=== PATIENT | female | born 1965 | race Caucasian/White ===

== ENCOUNTER 2021-01-23 04:09 | Emergency (ER) | payer BC, SELFPAY ==
[2021-01-23 04:13] VITALS: BP 169/71; PULSE 72; RESP 18; TEMP 36.1; O2SAT 100; BMI 56.3
--- NOTE | 2021-01-23 04:53 | RAD_ITS ---
STUDY: X-RAY CHEST REASON FOR EXAM: Female, 55 years old. SOB TECHNIQUE: Single AP portable view of the chest. COMPARISON: None. FINDINGS: There is an infiltrate in the right lower lung field demarcated superiorly by the horizontal fissure consistent with a right middle lobe pneumonia. There also appears to be some infiltration and underlying the dome of the diaphragm, consistent with lower lobe pneumonia. There is no demonstrated pleural abnormality. The heart is enlarged. Normal mediastinum and jacki. Normal visualized aortic arch and descending thoracic aorta. There are no demonstrated acute fractures or destructive bone lesions. There is no demonstrated abnormality of the visualized soft tissue structures of the upper abdomen. RAD/Chest 1 View (Portable) IMPRESSION: Right middle lobe and right lower lobe infiltrates. Cardiomegaly. Electronically Signed: Joe Pena MD at 5:39 EDT , Service support ,
--- NOTE | 2021-01-23 04:53 | EKG12_ITS ---
Test Reason : DYSRHYTHMIA Blood Pressure : / mmHG Vent. Rate : 073 BPM Atrial Rate : 073 BPM P-R Int : 186 ms QRS Dur : 082 ms QT Int : 402 ms P-R-T Axes : 050 070 059 degrees QTc Int : 442 ms Normal sinus rhythm Low voltage QRS (Limb Leads) Poor R wave progression Confirmed by BERNARD LIAO, JOSH ([id number]), greeting card editor MAO CARRANZA ([id number]) on 01/26/2021 10:01:40 AM Referred By: BETO Confirmed By:JOSH WAGNER MD
[2021-01-23 05:16] LABS: Absolute Lymphocyte Count 1.12 X10^3/uL (0.83-4.51); Absolute Neutrophil Count 3.4 X10^3/uL (2.0-7.7); Basophil# 0.06 X10^3/uL; Basophil% 1.1 % (0-1); Eosinophil# 0.21 X10^3/uL; Eosinophils% 3.8 % (0-5); Hematocrit 36.8 % (37-47); Hemoglobin 10.5 g/dL (12.0-15.0); Lymphocyte # 1.12 X10^3/ul (0.83-4.51); Lymphocyte % 20.4 % (19-41); Mean Corp Hgb Conc 28.5 g/dL (32-36); Mean Corpuscular Hgb 29.7 pg (27.0-32.0); Mean Platelet Vol. 10.3 fl (6.2-12.0); Monocyte# 0.64 X10^3/uL; Monocyte% 11.7 % (0-10); Neutrophil # 3.44 X10^3/uL (2.7-7.7); Neutrophil % 62.8 % (47-70); POSITIVE MORPHOLOGY YES; Platelet Count 592 K/mm3 (150-450); RBC Distribution Width CV 19.2 % (11.6-14.6); Red Blood Count 3.54 M/mm3 (4.2-5.4); White Blood Count 5.5 K/mm3 (4.4-11.0)
[2021-01-23 05:40] LABS: Differential Indicated SCAN CRITERIA MET
[2021-01-23] MEDS: Furosemide 40 MG/4 ML Vial IV (06:01)
[2021-01-23 06:11] VITALS: BP 205/86; PULSE 75; RESP 18; O2SAT 100
[2021-01-23 06:45] LABS: Acanthocytes 1+; Anisocytosis 2+; Target Cells 1+; Tear Drop Cell RARE
[2021-01-23 06:47] LABS: Anion Gap 6 (5-15); BUN 17 mg/dL (7-18); BUN/Creat Ratio 21.2 RATIO (10-20); Calcium,Total 8.7 mg/dL (8.5-10.1); Chloride 104 mmol/L (98-107); EST Glomerular Filtration Rate 78 mL/min (>60); Est Glom Filt Rate - Afr Amer 95 mL/min (>60); Estimated Creatinine Clearance 61.36 ml/min; Glucose 137 mg/dL (74-106); Potassium 4.2 mmol/L (3.5-5.1); Sodium Level 137 mmol/L (136-145)
--- NOTE | 2021-01-23 06:57 | EX.ED.DYSGE1 ---
HPI History of Present Illness Chief Complaint: Complaint Informant: patient Narrative Narrative: Patient states that she feels she is starting to fill up with some fluids again. She was in the hospital the end of December at [facility]. She went home. She has been generally doing well. She is taking Lasix at 40 mg once a day. She states for the last day she started to get some swelling in her legs again. Her urine output also seems to be somewhat decreased. She is not having dysuria frequency or urgency. She is not actually having dyspnea. She did wake up slightly dyspneic but she stated that she was panting when she woke up and the symptoms rapidly resolved. She is not at all dyspneic now. She can lay down flat. She has not had a cough. She has had no fevers or chills. [facility] Medical History CHF (congestive heart failure) Diabetes HTN (hypertension) Home Medications atorvastatin 40 mg PO QHS 01/23/21 [History Last Taken Unknown] furosemide [Lasix] 40 mg PO DAILY 01/23/21 [History Last Taken Unknown] insulin glargine [Lantus Solostar U-100 Insulin] 30 unit SUBCUT QHS 01/23/21 [History Last Taken Unknown] insulin glargine [Lantus Solostar U-100 Insulin] 40 unit SUBCUT DAILY 01/23/21 [History Last Taken Unknown] insulin lispro [Humalog KwikPen Insulin] See Protocol SUBCUT TIDCM 01/23/21 [History Last Taken Unknown] losartan 50 mg PO DAILY 01/23/21 [History Last Taken Unknown] methotrexate sodium 20 mg PO QWEEK 01/23/21 [History Last Taken Unknown] metoprolol tartrate 37.5 mg PO BID 01/23/21 [History Last Taken Unknown] venlafaxine 25 mg PO DAILY 01/23/21 [History Last Taken Unknown] Allergy/AdvReac Type Severity Reaction Status Date / Time codeine Allergy Other Verified 01/23/21 04:12 Surgical History Stented coronary artery Social History Smoking Status: Never smoker ROS ROS ED Constitutional Constitutional ED: Denies chills, fever(s) or sweats Eyes Eyes: Denies blurry vision ENT ENT ED: Denies rhinorrhea or sore throat Cardiovascular Cardiovascular: Denies chest pain, palpitations or racing heartbeat Respiratory/Chest Respiratory/Chest: Denies cough or dyspnea Gastrointestinal Gastrointestinal: Denies abdominal pain, diarrhea, nausea or vomiting Genitourinary Genitourinary ED: Reports other Details: Patient feels she has had a slight decreased volume of urine over the last day. ; Denies dysuria, hematuria or urinary frequency Musculoskeletal Musculoskeletal: Reports other Details: Mild increase in swelling again bilaterally. Integumentary Denies rash Neurologic Neurologic: Denies headache(s) Endocrine Endocrinology: Denies polydipsia or polyuria Allergic/Immunologic Allergic/Immunologic ED: Denies urticaria EXAM Physical Exam Const Vital Signs: 01/23/21 06:11 01/23/21 08:01 Pulse Rate 75 71 Respiratory Rate 18 16 Blood Pressure 205/86 H 129/77 H Blood Pressure Mean 125 Pulse Ox 100 98 Positive well nourished, well developed and obese Constitutional Narrative: Patient sitting quietly in bed. She sitting up. She carries on a very normal conversation. No sign of dyspnea. She looks very nontoxic. General Appearance ED: well developed and NAD Nutritional Appearance: obese HEENT Reports moist mucous membranes Eyes General Eye ED: Negative for pale conjunctiva or scleral icterus Neck no JVD Chest Wall inspection of chest normal Resp normal respiratory effort and clear to auscultation bilaterally Auscultation: Negative for rales, rhonchi or wheezes Cardio regular rate, regular rhythm and no murmurs GI normal to inspection, nondistended, normoactive bowel sounds and non-tender Palpation: soft Back/Spine no CVA tenderness Extremity Extremity Narrative: Legs do have some very slight +1 edema bilaterally. No distended veins. No tenderness along the deep venous system. No cord. No asymmetry. Neuro Sensorium / Orientation: alert Psych mental status grossly normal Skin no rashes or lesions noted MDM MDM MDM Narrative Medical decision making narrative: Patient CBC shows mild anemia. Edgardo White. Electrolytes showed minimal elevation of her glucose. BNP was slightly elevated. X-ray did show some fluid in the major fissure on the right. However, patient has no symptoms of pneumonia. She has no cough and no dyspnea. She does feel as though she is getting more swelling returning. She was given Lasix here. She is urinated well. Plan will be to increase her Lasix to 40 twice daily for about 3 days. She will follow up with her private physician. They will have to watch her creatinine as she has had rising creatinines in the past. If she develops dyspnea, fever or other symptoms she may need to return. At this point since she is not at all hypoxic I do not think she needs to come in the hospital. Patient also requested something for itch. She has had a rash off and on for months. She also has anxiety. She states she was given a single medicine that helped for both. My suspicion is this is likely Vistaril. She states she does have it at home but she last took it about 10 hours ago and she is supposed to take it every 8 hours. Lab Data Attestation: I reviewed the patient's lab results. Labs: Laboratory Results - last 24 hr 01/23/21 01/23/21 01/23/21 05:08 05:08 05:37 WBC 5.5 RBC 3.54 L Hgb 10.5 L Hct 36.8 L MCV 104.0 H MCH 29.7 MCHC 28.5 L RDW Std Deviation 73.0 H RDW Coeff of Sherine 19.2 H Plt Count 592 H MPV 10.3 Immature Gran % (Auto) 0.200 Neut % (Auto) 62.8 Lymph % (Auto) 20.4 [place] % (Auto) 11.7 H Eos % (Auto) 3.8 Baso % (Auto) 1.1 H Absolute Neuts (auto) 3.4 Absolute Lymphs (auto) 1.12 Nucleated RBC % 2.0 Anisocytosis 2+ Target Cells 1+ Tear Drop Cells RARE Acanthocytes (Spur) 1+ Sodium Cancelled Cancelled Potassium Cancelled Cancelled Chloride Cancelled Cancelled Carbon Dioxide Cancelled Cancelled Anion Gap Cancelled Cancelled BUN Cancelled Cancelled Creatinine Cancelled Cancelled Estim Creat Clear Calc Cancelled Cancelled Est GFR (MDRD) Af Amer Cancelled Cancelled Est GFR (MDRD) Non-Af Cancelled Cancelled BUN/Creatinine Ratio Cancelled Cancelled Glucose Cancelled Cancelled Calcium Cancelled Cancelled B-Natriuretic Peptide 01/23/21 01/23/21 06:25 06:25 WBC RBC Hgb Hct MCV MCH MCHC RDW Std Deviation RDW Coeff of Sherine Plt Count MPV Immature Gran % (Auto) Neut % (Auto) Lymph % (Auto) [place] % (Auto) Eos % (Auto) Baso % (Auto) Absolute Neuts (auto) Absolute Lymphs (auto) Nucleated RBC % Anisocytosis Target Cells Tear Drop Cells Acanthocytes (Spur) Sodium 137 Potassium 4.2 Chloride 104 Carbon Dioxide 27.0 Anion Gap 6 BUN 17 Creatinine 0.80 Estim Creat Clear Calc 61.36 Est GFR (MDRD) Af Amer 95 Est GFR (MDRD) Non-Af 78 BUN/Creatinine Ratio 21.2 H Glucose 137 H Calcium 8.7 B-Natriuretic Peptide 598.5 H Radiography Diagnostic Testing: Radiology Impression Chest X-Ray 01/23/21 04:53 IMPRESSION: Right middle lobe and right lower lobe infiltrates. Cardiomegaly. Electronically Signed: Joe Pena MD at 5:39 EDT , Service support , EKG Initial EKG: Comments: EKG done as part of medical work-up with history of CHF. EKG shows a normal sinus rhythm with overall rate of 73. No ectopy. Nonspecific ST and T wave changes but no sign of infarct or ischemia. NE interval, QRS duration and QTc normal. Discharge Plan Triage Chief Complaint: Complaint Other Complaint: Nausea/Vomiting ED Provider: Chidi Geronimo Dx/Rx/DC Orders Clinical Impression: Edema, peripheral Instructions: Taking a Diuretic Prescriptions: No Action losartan 50 mg Tablet 50 mg PO DAILY RF: 0 atorvastatin 40 mg Tablet 40 mg PO QHS RF: 0 venlafaxine 25 mg Tablet 25 mg PO DAILY RF: 0 methotrexate sodium 2.5 mg Tablet 20 mg PO QWEEK RF: 0 furosemide [Lasix] 20 mg Tablet 40 mg PO DAILY RF: 0 insulin lispro [Humalog KwikPen Insulin] 100 unit/mL insulin pen See Protocol sliding scale dose SUBCUT TIDCM RF: 0 Lantus Solostar U-100 Insulin 100 unit/mL (3 mL) Insulin Pen 40 unit SUBCUT DAILY RF: 0 Lantus Solostar U-100 Insulin 100 unit/mL (3 mL) Insulin Pen 30 unit SUBCUT QHS RF: 0 metoprolol tartrate 37.5 mg Tablet 37.5 mg PO BID RF: 0 Primary Care Provider: Kevin Zarate Referrals: Kevin Zarate MD [Primary Care Provider] - 3-5 Days if not improving Activity Restrictions/Additional Instructions: Double your Lasix dose for the next 3 days. Follow-up with your physician for recheck clinically and recheck of your kidney function. Disposition Disposition: Home, Self Care Discharge Date/Time: 01/23/21 09:35
[2021-01-23 07:08] LABS: BNP,B-Type NATRIURETIC PEPTIDE 598.5 pg/mL (0-100)
[2021-01-23] MEDS: hydrOXYzine PAM 25 MG Capsule PO (08:00)
[2021-01-23 08:01] VITALS: BP 129/77; PULSE 71; RESP 16; O2SAT 98
== END 2021-01-23 09:35 | disposition home or self-care (01) ==
PROVIDERS: Emergency Provider Emergency Medicine; PCP Internal Medicine
DX: R11.2 Nausea with vomiting, unspecified (principal); M79.89 Other specified soft tissue disorders; I11.0 Hypertensive heart disease with heart failure; I50.9 Heart failure, unspecified; E11.9 Type 2 diabetes mellitus without complications; E66.9 Obesity, unspecified; Z79.4 Long term (current) use of insulin; Z79.899 Other long term (current) drug therapy; Z95.5 Presence of coronary angioplasty implant and graft
CPT/HCPCS: 36415; 71045; 80048; 83880; 85025; 93005; 96374; 99285; A4216; J1940

== ENCOUNTER → 2021-01-30 11:07 | Outpatient (CLI) | payer OTHER, SELFPAY ==
--- NOTE | 2021-01-30 12:07 | VDLE_ITS ---
Reason For Study: Pain RIGHT LEFT GSV is normal. GSV is normal. CFV is compressible, spontaneous, competent CFV is compressible, spontaneous, competent, and demonstrates pulsatile venous flow. and demonstrates pulsatile venous flow. FV is compressible, spontaneous, competent FV is compressible, spontaneous, competent and demonstrates pulsatile venous flow. and demonstrates pulsatile venous flow. FV distal not visualized due to patient body FV distal not visualized due to patient body habitus and edema. habitus and edema. POP V is compressible, spontaneous, competent POP V is compressible, spontaneous, competent and demonstrates pulsatile venous flow. and demonstrates pulsatile venous flow. T/P Trunk is compressible. T/P Trunk is compressible. PTV is compressible. PTV is compressible. RT PerV is compressible. LT PerV is compressible. Procedure This is a venous duplex using B-mode, color flow and spectral Doppler. Exam performed in department. The study was technically difficult. A preliminary report was called and/or faxed to [place] @ [facility]. VL/Venous Duplex US - Kyler Extrem Interpretation Summary No evidence for acute deep venous thrombosis bilateral lower extremities with p atent and compressible bilateral great saphenous veins. Pulsatile venous flow noted bilat erally consistent with proximal venous hypertension or obstruction. Clinical correlation would be indicated. This examination was noted to be technically difficult. Patient body habitus an d swelling noted. Ordering Physician: Aidan Roth Referring Physician: Kevin Zarate M.D. Performed By: Carolina Florence RVT
== END ==
PROVIDERS: PCP Internal Medicine; Referring Provider Family Medicine; Visit Provider Family Medicine
DX: M79.661 Pain in right lower leg (principal); M79.662 Pain in left lower leg
CPT/HCPCS: 93970

== ENCOUNTER 2021-02-04 18:41 | Emergency (ER) | payer OTHER, SELFPAY ==
[2021-02-04 18:46] VITALS: BP 153/68; PULSE 87; RESP 14; TEMP 36.5; O2SAT 97; BMI 60.0
--- NOTE | 2021-02-04 19:09 | EX.ED.UPPERE ---
HPI History of Present Illness Chief Complaint: Upper Extremity Injury Detail of Chief Complaint: Right shoulder pain since yesterday Informant: patient Narrative Narrative: Patient presents to the emergency department with complaint of right shoulder pain since yesterday. Patient states that they will only give her Tylenol and she is having severe pain. Patient also has history of chronic pain related to rheumatoid arthritis and her whole body hurts. Patient states that since yesterday she is also had a rash involving her face and palms and feet. Patient states she had a similar rash weeks ago and was treated with antibiotics and it resolved. Patient denies history of gonorrhea or syphilis. She has had no fevers. Patient states she had an admission at [facility] 3 weeks ago for pneumonia and acute kidney failure and dehydration. [facility] Medical History CHF (congestive heart failure) Diabetes HTN (hypertension) Home Medications atorvastatin 40 mg PO QHS 01/23/21 [History Last Taken Unknown] furosemide [Lasix] 40 mg PO DAILY 01/23/21 [History Last Taken Unknown] insulin glargine [Lantus Solostar U-100 Insulin] 30 unit SUBCUT QHS 01/23/21 [History Last Taken Unknown] insulin glargine [Lantus Solostar U-100 Insulin] 40 unit SUBCUT DAILY 01/23/21 [History Last Taken Unknown] insulin lispro [Humalog KwikPen Insulin] See Protocol SUBCUT TIDCM 01/23/21 [History Last Taken Unknown] losartan 50 mg PO DAILY 01/23/21 [History Last Taken Unknown] methotrexate sodium 20 mg PO QWEEK 01/23/21 [History Last Taken Unknown] metoprolol tartrate 37.5 mg PO BID 01/23/21 [History Last Taken Unknown] venlafaxine 25 mg PO DAILY 01/23/21 [History Last Taken Unknown] hydrocodone-acetaminophen 1 tab PO Q4H PRN PRN 2 Days #15 tablet 02/05/21 [Rx Last Taken Unknown] Allergy/AdvReac Type Severity Reaction Status Date / Time codeine Allergy Other Verified 02/04/21 18:49 Family History (Updated 02/04/21 @ 23:[address] Yeison Rodgers MD) Other Cancer Heart disease Hypertension Surgical History Stented coronary artery Social History Smoking Status: Never smoker ROS ROS ED Constitutional Constitutional ED: Reports systems reviewed and no addt'l complaints, except as documented; Denies body ache(s), change in weight or chills Eyes Eyes: Denies acute decrease in peripheral vision, change in vision, double vision or loss of vision ENT ENT ED: Reports none; Denies ear pain, lip swelling, loss taste/smell, neck pain, otalgia or sore throat Cardiovascular Cardiovascular: Reports none; Denies abdominal pain, chest pain with activity, leg edema, lightheadedness, palpitations, rapid heart rate or syncope Respiratory/Chest Respiratory/Chest: Reports none; Denies change in mental status, dry cough, dyspnea, hemoptysis, shortness of breath at rest or shortness of breath with exertion Gastrointestinal Gastrointestinal: Reports none; Denies abdominal pain, change in stool character, diarrhea, hematemesis, hematochezia, melena, rectal bleeding or vomiting Genitourinary Genitourinary ED: Reports none; Denies abdominal discomfort, anuria, dysuria, genital pain or polyuria Musculoskeletal Musculoskeletal: Reports none and other Details: Right shoulder pain ; Denies arthralgias, back pain, difficulty walking, extremity pain, muscle weakness or myalgias Integumentary Reports none and rash; Denies abscess Neurologic Neurologic: Reports none; Denies abnormal gait, confusion, focal weakness, frequent falls, headache(s), loss of vision, numbness, paresthesias, radicular pain, vertigo or weakness Psychiatric Psychiatric: Reports systems reviewed and no addt'l complaints, except as documented and none; Denies behavioral changes, confusion, difficulty concentrating, hallucinations, suicidal ideation, tactile hallucinations or visual hallucinations Endocrine Endocrinology: Denies none, cold intolerance, excessive sweating, fatigue or heat intolerance Hematologic/Lymphatic Hematologic/Lymphatic: Reports none; Denies anemia, easy bleeding or easy bruising Allergic/Immunologic Allergic/Immunologic ED: Denies as per HPI, none, lip swelling, mouth swelling, throat swelling, tongue swelling or hives EXAM Physical Exam Const Vital Signs: 02/04/21 18:46 Temperature 97.7 F L Temperature Source Oral Pulse Rate 87 Respiratory Rate 14 Blood Pressure 153/68 H Blood Pressure Mean 96 Pulse Ox 97 Oxygen Delivery Method Room Air Positive well nourished and well developed General Appearance ED: well developed and NAD HEENT Reports TM's clear and moist mucous membranes normocephalic and atraumatic; Negative for trauma or tenderness Tympanic Membrane ED: Yes TM's clear Eyes PERRL and EOMs intact bilaterally General Eye ED: Negative for pale conjunctiva or scleral icterus Neck no lymphadenopathy, supple and no JVD General: Negative for tenderness Chest Wall inspection of chest normal and palpation of chest normal Chest: Negative for tenderness Resp normal respiratory effort and clear to auscultation bilaterally Effort and Inspection: Negative for respiratory distress or pain with movement Auscultation: Negative for rhonchi, wheezes or diminished lung sounds Cardio regular rate, regular rhythm, S1 normal heart sound, S2 normal heart sound and no murmurs Peripheral Pulses: pulses 2+ throughout GI normal to inspection, nondistended, normoactive bowel sounds, soft to palpation, non-tender, non-distended and no masses Back/Spine no CVA tenderness and no thoracic nor lumbar tenderness Extremity Extremity Narrative: Patient has tenderness palpation over the right glenohumeral joint. Patient has pain with range of motion at the shoulder. There is no obvious deformity. Neurovascularly intact distally. General Extremety ED: Negative for edema General Extremity: Negative for edema Neuro oriented x3, CN's II-XII intact bilaterally, no sensory deficits noted and gait normal Sensorium / Orientation: awake, alert, oriented to person, oriented to place and oriented to time Motor Exam: strength 5/5 throughout and strength abnormal Psych mental status grossly normal Skin no rashes or lesions noted and no wounds Skin Narrative: Patient has a excoriated rash involving the face as well as palms. I do not appreciate any rash on her feet. The lips are also involved. No oral lesions noted. MDM MDM MDM Narrative Medical decision making narrative: Etiology of patient's pain is unclear and etiology of her leukocytosis is unclear. We did order an RPR. Patient will be empirically started on antibiotics and blood cultures will be ordered. Patient initially medicated with morphine and Zofran which did not improve her pain and she was given Dilaudid 1 mg IV. Case will be discussed with hospitalist evaluate for admission. Patient was evaluated in the emergency department by hospitalist who did not feel patient warranted admission at this time and recommended outpatient follow-up with dermatology and follow-up lab work. I discussed case with patient's primary care physician at the residential or who is covering for the primary care physician at the residential Dr. Shaquille Torres. We will send patient back to residential with a prescription for [place] for her shoulder pain. They will follow up on her blood work as far as repeat CBC and will be advised to return if fever or condition should worsen anyway. At this point etiology of her leukocytosis is unclear and the etiology of her rash is unclear. I did send off an RPR. Her urine was normal and chest x-ray was unremarkable. No history of gonorrhea or chlamydia. Patient does not appear toxic or ill otherwise. Lab Data Attestation: I reviewed the patient's lab results. EKG Initial EKG: Attestation: I personally reviewed and interpreted this EKG as follows: Comments: Sinus rhythm with a ventricular rate of 87 bpm with no acute ST segment changes noted. Discharge Plan Triage Chief Complaint: Upper Extremity Injury ED Provider: Ilya Cruz Dx/Rx/DC Orders Clinical Impression: Leukocytosis, Dermatitis, Acute pain of right shoulder Instructions: ED Shoulder Pain, Uncertain Cause Prescriptions: New hydrocodone-acetaminophen [hydrocodone-acetaminophen] 1 TABLET tablet 1 tab PO Q4H PRN PRN (Reason: Pain) 2 Days Qty: 15 RF: 0 No Action losartan 50 mg Tablet 50 mg PO DAILY RF: 0 atorvastatin 40 mg Tablet 40 mg PO QHS RF: 0 venlafaxine 25 mg Tablet 25 mg PO DAILY RF: 0 methotrexate sodium 2.5 mg Tablet 20 mg PO QWEEK RF: 0 furosemide [Lasix] 20 mg Tablet 40 mg PO DAILY RF: 0 insulin lispro [Humalog KwikPen Insulin] 100 unit/mL insulin pen See Protocol sliding scale dose SUBCUT TIDCM RF: 0 Lantus Solostar U-100 Insulin 100 unit/mL (3 mL) Insulin Pen 40 unit SUBCUT DAILY RF: 0 Lantus Solostar U-100 Insulin 100 unit/mL (3 mL) Insulin Pen 30 unit SUBCUT QHS RF: 0 metoprolol tartrate 37.5 mg Tablet 37.5 mg PO BID RF: 0 Primary Care Provider: Kevin Zarate Referrals: Max Lackey MD [STAFF PHYSICIAN] - 3-5 Days Kevin Zarate MD [Primary Care Provider] - Activity Restrictions/Additional Instructions: The etiology of the rash is unclear. Please follow-up with dermatology. Disposition Disposition: Home, Self Care
--- NOTE | 2021-02-04 19:19 | EKG12_ITS ---
Test Reason : UPPER EXTREMETY Blood Pressure : / mmHG Vent. Rate : 087 BPM Atrial Rate : 087 BPM P-R Int : 186 ms QRS Dur : 088 ms QT Int : 372 ms P-R-T Axes : 053 076 045 degrees QTc Int : 447 ms Normal sinus rhythm Anterior infarct , age undetermined Abnormal ECG Confirmed by ROMÁN LIAO, CHEPE ([id number]), newspaper copy editor MAO CARRANZA ([id number]) on 02/06/2021 8:09:11 AM Referred By: RU Confirmed By:CHEPE FRANCE MD
[2021-02-04] MEDS: Morphine 4 MG/ML Syringe IV (19:39)
[2021-02-04] MEDS: Ondansetron 4 MG/2 ML Vial IV (19:39)
--- NOTE | 2021-02-04 19:57 | RAD_ITS ---
STUDY: X-RAY CHEST REASON FOR EXAM: Female, 55 years old. Dyspnea TECHNIQUE: Frontal view COMPARISON: 01/23/2021 FINDINGS: The lungs are clear and expanded. There is no demonstrated pleural abnormality. Cardiomegaly. Normal mediastinum and jacki. Normal visualized pulmonary arteries. Normal visualized aortic arch and descending thoracic aorta. Degenerative changes of the thoracic spine. Normal visualized ribs, clavicles, and shoulders. There is no demonstrated abnormality of the visualized soft tissue structures of the upper abdomen. RAD/Chest 1 View (Portable) IMPRESSION: Cardiomegaly. Electronically Signed: Alejandro Keyes DO at 20:51 EDT Tel [phone], Service support ,
--- NOTE | 2021-02-04 19:57 | RAD_ITS ---
STUDY: X-RAY - RIGHT SHOULDER REASON FOR EXAM: Female, 55 years old. Pain TECHNIQUE: 4 view(s) of the shoulder. COMPARISON: None. FINDINGS: Normal glenohumeral articulation. Normal acromioclavicular joint. Normal acromion. Normal humeral head and visualized proximal humerus. The soft tissue structures are unremarkable. Normal visualized pulmonary apex. RAD/Shoulder min 2 Views IMPRESSION: Normal x-ray examination of the shoulder. Electronically Signed: Alejandro Keyes DO at 20:55 EDT Tel [phone], Service support ,
[2021-02-04 20:10] LABS: Absolute Lymphocyte Count 0.57 X10^3/uL (0.83-4.51); Absolute Neutrophil Count 22.2 X10^3/uL (2.0-7.7); Basophil# 0.08 X10^3/uL; Basophil% 0.3 % (0-1); Eosinophil# 0.13 X10^3/uL; Eosinophils% 0.5 % (0-5); Hematocrit 28.5 % (37-47); Lymphocyte # 0.57 X10^3/ul (0.83-4.51); Lymphocyte % 2.3 % (19-41); Mean Corp Hgb Conc 31.6 g/dL (32-36); Mean Corpuscular Hgb 28.8 pg (27.0-32.0); Mean Corpuscular Volume 91.3 fL (81-99); Mean Platelet Vol. 10.2 fl (6.2-12.0); Monocyte# 1.47 X10^3/uL; Monocyte% 5.9 % (0-10); NRBC Flagged by Analyzer 2.2 % (0-5); Neutrophil # 22.23 X10^3/uL (2.7-7.7); Neutrophil % 89.7 % (47-70); POSITIVE DIFFERENTIAL YES; Platelet Count 589 K/mm3 (150-450); RBC Distribution Width CV 18.2 % (11.6-14.6); RBC Distribution Width SD 59.5 fl (35.1-43.9); Red Blood Count 3.12 M/mm3 (4.2-5.4); White Blood Count 24.8 K/mm3 (4.4-11.0)
[2021-02-04 20:14] LABS: Differential Indicated SCAN CRITERIA MET
[2021-02-04 20:35] VITALS: BP 158/71; PULSE 88; RESP 19; O2SAT 96
[2021-02-04 20:48] LABS: Differential Comment SEE COMMENTS; Platelet Estimate MOD INC (ADEQ)
[2021-02-04 20:49] LABS: Anisocytosis RARE; Macrocytosis RARE; Red Cell Morphology N CHROM NORMAL (NORM C&C)
[2021-02-04 21:30] LABS: BNP,B-Type NATRIURETIC PEPTIDE 489.8 pg/mL (0-100)
[2021-02-04 21:40] VITALS: BP 159/85; PULSE 78; RESP 17; O2SAT 94
[2021-02-04 21:42] LABS: Bacteria 0 SEEN /hpf (None Seen); Mucous, Urine 0 SEEN /hpf (<or=2+); Red Blood Cells-Urine 0 SEEN /hpf (0-5)
[2021-02-04 21:47] LABS: Color, Urine Yellow (Yellow); Glucose, Dipstick Normal (Normal); Ketone-Dipstick Negative (Negative); Leukocyte Esterase-Dipstick Negative /ul (Negative); Nitrite-Dipstick Negative (Negative); Occult Blood-Urine 25 /ul (Negative); Protein-Dipstick 500 mg/dl (Negative); Urine Bilirubin Dipstick Negative (Negative); Urine Clarity Clear (Clear); Urine Urobilinogen 1 mg/dl (Normal)
[2021-02-04 21:53] LABS: Anion Gap 8 (5-15); BUN 37 mg/dL (7-18); BUN/Creat Ratio 33.3 RATIO (10-20); Calcium,Total 8.6 mg/dL (8.5-10.1); Chloride 95 mmol/L (98-107); Creatinine, Serum 1.11 mg/dL (0.55-1.02); EST Glomerular Filtration Rate 54 mL/min (>60); Est Glom Filt Rate - Afr Amer 65 mL/min (>60); Estimated Creatinine Clearance 44.23 ml/min; Glucose 205 mg/dL (74-106); Potassium 3.9 mmol/L (3.5-5.1); Sodium Level 130 mmol/L (136-145); Troponin-I HS 11 pg/mL (3.0-54.0)
[2021-02-04 21:54] LABS: Squamous Epithelial Cells - UA 0-5 SEEN /hpf (5-10); White Blood Cells 0-5 SEEN /hpf (0-5)
[2021-02-04] MEDS: HYDROmorphone 1 MG/ML Syringe IV (22:12)
[2021-02-04 22:38] VITALS: TEMP 36.4
--- NOTE | 2021-02-04 23:47 | HP.PCM.HOS_ITS ---
[facility] - [facility] General Date of Service: 02/04/21 Chief Complaint: right shoulder pain [facility] Narrative IRWIN ORTEGA, is a 55 F with a significant history of congestive heart failure; diabetes mellitus; hypertension who presents with excruciating right shoulder pain. She described the pain as sharp. She denies any ameliorating or aggravating factors. However she reported that at the emergency department the blood pressure cuff increase her pain. The pain is nonradiating. Associated with her symptoms is generalized body pain. Also patient has scattered rash on face and on the extremities that started about 3 weeks ago. She was at [facility] and was discharged on 01/05/2021. She reported that previously she had these lesions but with antibiotics the lesions cleared. However she reports again that before she left the hospital this lesion restarted. She also has lesions on the right side of her tongue. At the emergent part the patient had leukocytosis which prompted emergency department doctor to seek internal medicine consultation. [facility] Medical History CHF (congestive heart failure) Diabetes HTN (hypertension) Home Medications atorvastatin 40 mg PO QHS 01/23/21 [History Last Taken Unknown] furosemide [Lasix] 40 mg PO DAILY 01/23/21 [History Last Taken Unknown] insulin glargine [Lantus Solostar U-100 Insulin] 30 unit SUBCUT QHS 01/23/21 [History Last Taken Unknown] insulin glargine [Lantus Solostar U-100 Insulin] 40 unit SUBCUT DAILY 01/23/21 [History Last Taken Unknown] insulin lispro [Humalog KwikPen Insulin] See Protocol SUBCUT TIDCM 01/23/21 [History Last Taken Unknown] losartan 50 mg PO DAILY 01/23/21 [History Last Taken Unknown] methotrexate sodium 20 mg PO QWEEK 01/23/21 [History Last Taken Unknown] metoprolol tartrate 37.5 mg PO BID 01/23/21 [History Last Taken Unknown] venlafaxine 25 mg PO DAILY 01/23/21 [History Last Taken Unknown] hydrocodone-acetaminophen 1 tab PO Q4H PRN PRN 2 Days #15 tablet 02/05/21 [Rx Last Taken Unknown] Allergy/AdvReac Type Severity Reaction Status Date / Time codeine Allergy Other Verified 02/04/21 18:49 Family History Other Cancer Heart disease Hypertension Surgical History Stented coronary artery Social History Smoking Status: Never smoker ROS ROS Narrative Constitutional: Denies fever, chills, fatigue, anorexia and change in weight Eyes: Denies blurry vision, change in eye color, change in vision, discharge from eye(s), double vision, erythema, eye pain, loss of vision or other HEENT: Denies abnormal hearing, dysphagia, ear pain, epistaxis, headache(s), hearing loss, nasal congestion, nasal discharge, post nasal drip, sinus pressure, sore throat or other Cardiovascular: Denies chest pain or palpitations. Denies dyspnea on exertion, orthopnea and paroxysmal nocturnal dyspnea Respiratory/Chest: Denies cough, excessive phlegm production, shortness of yeison th with exertion and wheezing Gastrointestinal: Denies abdominal pain, coffee ground emesis, constipation, diarrhea, dyspepsia, hematemesis, hematochezia, loose stools, melena, nausea, vomiting or other Genitourinary: Denies burning urination, difficulty urinating, dysuria, hematuria, nocturia, urinary frequency, urinary hesitancy, urinary incontinence, urinary urgency or other Musculoskeletal: Reports right shoulder pain and generalized body pain. Neurologic: Denies abnormal gait, abnormal speech, confusion, disequilibrium, dizziness, focal weakness, headache(s), numbness, paresthesias, seizure-like activity, seizures, syncope, tingling, tremor(s) or other Psychiatric: Denies anxiety, depression, homicidal ideation, suicidal ideation or other Endocrinology: Denies change in body appearance, cold intolerance, excessive sweating, heat intolerance, polydipsia, polyuria or other Hematologic/Lymphatic: Denies anemia, easy bleeding, easy bruising, lymphadenopathy or other Integumentary: Reports rashes Allergic/Immunologic: Denies rhinitis, hives, eczema, asthma or other Vital Signs Vital Signs Vital Signs: 02/04/21 18:46 02/04/21 20:35 02/04/21 21:40 Temperature 97.7 F L Temperature Source Oral Pulse Rate 87 88 78 Respiratory Rate 14 19 H 17 Blood Pressure 153/68 H 158/71 H 159/85 H Blood Pressure Mean 96 100 109 Pulse Ox 97 96 94 Oxygen Delivery Method Room Air Room Air 02/04/21 22:38 Temperature 97.5 F L Temperature Source Temporal Pulse Rate Respiratory Rate Blood Pressure Blood Pressure Mean Pulse Ox Oxygen Delivery Method Weight Weight: 148.8 kg Body Mass Index (BMI) 60.0 Physical Exam Narrative Physical exam: General: Well-nourished, well-developed. Head: Normocephalic, atraumatic, no tenderness Eyes: PERRLA, EOMI ENT: Herpetic lesions on right side of tongue; no trauma, moist mucous membranes, no rhinorrhea Neck: Nontender, full range of motion, no spinal tenderness, deformities, step- off CVS: Regular rate and rhythm. S1-S2 present. No murmur, gallop or rub. Respiratory : clear to auscultation bilaterally, chest wall nontender, no wheezing Abdomen: Soft, nontender, nondistended, normal bowel sounds, no masses : Deferred Back: Nontender, no CVA tenderness, no midline spinal tenderness, deformities, step-offs Extremities: Decreased strength and limited ROM in all 4 extremities. Nontender. Skin: Scattered rashes on face. Neuro: Alert, oriented, cranial nerves II through XII grossly intact. Psychiatry: Normal mood. Normal affect. Not depressed. Not anxious. Results Lab / Micro Data Result Diagrams: 02/04/21 19:56 02/04/21 21:21 Labs: Laboratory Results - last 24 hr 02/04/21 19:44: Sodium Cancelled, Potassium Cancelled, Chloride Cancelled, Carbon Dioxide Cancelled, Anion Gap Cancelled, BUN Cancelled, Creatinine Cancelled, Estim Creat Clear Calc Cancelled, Est GFR (MDRD) Af Amer Cancelled, E st GFR (MDRD) Non-Af Cancelled, BUN/Creatinine Ratio Cancelled, Glucose Cancelled, Calcium Cancelled, Troponin I High Sens Cancelled 02/04/21 19:44: Syphilis Total Ab Cancelled 02/04/21 19:56: WBC 24.8 H, RBC 3.12 L, Hgb 9.0 L, Hct 28.5 L, MCV 91.3, MCH 28.8, MCHC 31.6 L, RDW Std Deviation 59.5 H, RDW Coeff of Sherine 18.2 H, Plt Count 589 H, MPV 10.2, Immature Gran % (Auto) 1.300 H, Neut % (Auto) 89.7 H, Lymph % (Auto) 2.3 L, [place] % (Auto) 5.9, Eos % (Auto) 0.5, Baso % (Auto) 0.3, Absolute Neuts (auto) 22.2 H, Absolute Lymphs (auto) 0.57 L, Nucleated RBC % 2.2, Differential Comment SEE COMMENTS, Platelet Estimate MOD INC, RBC Morphology N CHROM, Anisocytosis RARE, Macrocytosis RARE 02/04/21 19:56: B-Natriuretic Peptide Cancelled 02/04/21 20:34: B-Natriuretic Peptide 489.8 H 02/04/21 21:21: Sodium 130 L, Potassium 3.9, Chloride 95 L, Carbon Dioxide 27.0, Anion Gap 8, BUN 37 H, Creatinine 1.11 H, Estim Creat Clear Calc 44.23, Est GFR (MDRD) Af Amer 65, Est GFR (MDRD) Non-Af 54 L, BUN/Creatinine Ratio 33.3 H, Glucose 205 H, Calcium 8.6, Troponin I High Sens 11 02/04/21 21:31: Urine Color Yellow, Urine Clarity Clear, Urine pH 5.0, Ur Specific [place] 1.020, Urine Protein 500 H, Urine Glucose (UA) Normal, Urine Ketones Negative, Urine Occult Blood 25 H, Urine Nitrite Negative, Urine Bilirubin Negative, Urine Urobilinogen 1 H, Ur Leukocyte Esterase Negative, Urine RBC 0 SEEN, Urine WBC 0-5 SEEN, Ur Squamous Epith Cells 0-5 SEEN, Urine Bacteria 0 SEEN, Urine Mucus 0 SEEN Radiology Impression Chest X-Ray 02/04/21 19:57 IMPRESSION: Cardiomegaly. Electronically Signed: Alejandro Keyes DO at 20:51 EDT Tel [phone], Service support , Shoulder X-Ray 02/04/21 19:57 IMPRESSION: Normal x-ray examination of the shoulder. Electronically Signed: Alejandro Keyes DO at 20:55 EDT Tel [phone], Service support , Assessment & Plan Assessment/Plan (1) Dermatitis: (2) Leukocytosis: QUALIFIERS: Leukocytosis type: other Qualified Code(s): D72.828 - Other elevated white blood cell count (3) Shoulder pain: PLAN: Shoulder pain X-ray shoulder is normal Discussed emergent department doctor at the present time discharged home on pain medicine. Recommend that patient follow-up with pattern generator operator for rash. The skilled nursing did not see rashes as urgent, neither did patient. Patient's chief complain is shoulder pain. Initially recommended doxycycline. However upon seeing patients I do not think patient requires antibiotics. Patient lives in a skilled nursing. Recommend follow-up of a white count in 3 -7 days. Charges/Coding Multi Select Codes Visit Charges Office Visit/Consults: 91502 ED Visit; Low/Mod Severity
[2021-02-04 23:53] VITALS: PULSE 90; RESP 17; O2SAT 97
[2021-02-05 00:11] VITALS: BP 119/87
--- NOTE | 2021-02-05 00:21 | ED.RN ---
Brayan nurse called and aware we are sending her home and to expect her within the next 60-90 minutes [facility].
[2021-02-05 09:21] LABS: Syphilis Antibodies Non-reactive
== END 2021-02-05 00:59 | disposition home or self-care (01) ==
PROVIDERS: Emergency Provider Emergency Medicine; PCP Internal Medicine
DX: L30.9 Dermatitis, unspecified (principal); D72.829 Elevated white blood cell count, unspecified; M25.511 Pain in right shoulder; M06.9 Rheumatoid arthritis, unspecified; G89.29 Other chronic pain; I11.0 Hypertensive heart disease with heart failure; I50.9 Heart failure, unspecified; E11.9 Type 2 diabetes mellitus without complications; Z79.4 Long term (current) use of insulin; Z79.899 Other long term (current) drug therapy; Z95.5 Presence of coronary angioplasty implant and graft
CPT/HCPCS: 36415; 71045; 73030; 80048; 81001; 83880; 84484; 85025; 86780; 87040; 87077; 87186; 93005; 96365; 96375; 99285; J7030; J7050; A4216; J2405

== ENCOUNTER 2021-02-07 01:15 | Inpatient (IN) | payer OTHER, SELFPAY ==
[2021-02-07] VITALS (19 sets, daily range): BP systolic 111–175; BP diastolic 64–100; PULSE 74–88; RESP 17–22; TEMP 36–37.1; O2SAT 97–100; BMI 60.6; BMI 58.4
--- NOTE | 2021-02-07 01:37 | RAD_ITS ---
STUDY: X-RAY CHEST REASON FOR EXAM: Female, 55 years old patient with chest pain. TECHNIQUE: Single AP portable view of the chest. COMPARISON: Chest radiograph dated 02/04/2021. FINDINGS: Cardiac monitoring leads are present. The lungs are underexpanded. There is perihilar interstitial thickening and peribronchial cuffing. There is no demonstrated pleural abnormality. There is moderate cardiac enlargement. Normal mediastinum and jacki. There is prominence of the pulmonary hilar arteries with peripheral pulmonary vascular congestion. There is atherosclerotic calcification of the aortic arch with tortuosity. There are diffuse degenerative changes of the visualized thoracic spine. Normal visualized ribs, clavicles, and shoulders. There is no demonstrated abnormality of the visualized soft tissue structures of the upper abdomen. RAD/Chest 1 View (Portable) IMPRESSION: Cardiomegaly and mild pulmonary vascular congestion. Electronically Signed: Anca Torres MD at 2:52 EDT , Service support ,
--- NOTE | 2021-02-07 01:37 | EKG12_ITS ---
Test Reason : SOB Blood Pressure : / mmHG Vent. Rate : 083 BPM Atrial Rate : 083 BPM P-R Int : 184 ms QRS Dur : 084 ms QT Int : 392 ms P-R-T Axes : 052 064 052 degrees QTc Int : 460 ms Normal sinus rhythm Normal ECG Confirmed by KANID LIAO, ATUL ([id number]), script editor MAO CARRANZA ([id number]) on 02/12/2021 10:37:16 AM Referred By: JOSE F Confirmed By:VALENTE CHAU MD
--- NOTE | 2021-02-07 01:39 | EX.ED.DYSGE1 ---
HPI History of Present Illness Chief Complaint: Complaint Informant: patient, EMS and SNF Onset/Context/Timing Onset: Today Context: Gradual Onset Timing: Intermittent Current Severity: Mild Maximum Severity: Mild Narrative Narrative: 55-year-old female history of diabetes, MIs x2, 5 cardiac stents, CHF renal insufficiency. Patient is recently been hospitalized in acute in hospital. She was seen in the emergency department within the last 48 hours. Patient was sent in tonight due to decreased urination over the last 8 hours and nursing at the extended care facility felt she was short of breath. Patient states she is always short of breath. She denies any chest pain. She denies any hemoptysis. Prior similar symptoms: Yes Recent Illness/Hospitalization: Yes [facility] Medical History CHF (congestive heart failure) Diabetes HTN (hypertension) Home Medications atorvastatin 40 mg PO QHS 01/23/21 [History Last Taken Unknown] furosemide [Lasix] 40 mg PO DAILY 01/23/21 [History Last Taken Unknown] insulin glargine [Lantus Solostar U-100 Insulin] 30 unit SUBCUT QHS 01/23/21 [History Last Taken Unknown] insulin glargine [Lantus Solostar U-100 Insulin] 40 unit SUBCUT DAILY 01/23/21 [History Last Taken Unknown] insulin lispro [Humalog KwikPen Insulin] See Protocol SUBCUT TIDCM 01/23/21 [History Last Taken Unknown] losartan 50 mg PO DAILY 01/23/21 [History Last Taken Unknown] methotrexate sodium 20 mg PO QWEEK 01/23/21 [History Last Taken Unknown] metoprolol tartrate 37.5 mg PO BID 01/23/21 [History Last Taken Unknown] venlafaxine 25 mg PO DAILY 01/23/21 [History Last Taken Unknown] hydrocodone-acetaminophen 1 tab PO Q4H PRN PRN 2 Days #15 tablet 02/05/21 [Rx Last Taken Unknown] doxycycline hyclate [Doxy-Caps] 100 mg PO BID 02/07/21 [History Last Taken Unknown] Allergy/AdvReac Type Severity Reaction Status Date / Time codeine Allergy Other Verified 02/07/21 01:25 Family History Other Cancer Heart disease Hypertension Surgical History Stented coronary artery Social History Smoking Status: Never smoker ROS ROS ED ROS Narrative Decreased urination. Review of Systems ROS Unobtainable: Denies due to encephalopathy Constitutional Constitutional ED: Denies chills or fever(s) Eyes Eyes: Denies change in vision ENT ENT ED: Denies ear pain or sore throat Cardiovascular Cardiovascular: Denies chest pain Respiratory/Chest Respiratory/Chest: Reports dyspnea; Denies cough or sputum Gastrointestinal Gastrointestinal: Denies abdominal pain, nausea or vomiting Genitourinary Genitourinary ED: Denies dysuria Musculoskeletal Musculoskeletal: Denies myalgias Integumentary Denies rash Neurologic Neurologic: Denies headache(s) Psychiatric Psychiatric: Denies depression Endocrine Endocrinology: Denies polyuria Allergic/Immunologic Allergic/Immunologic ED: Denies urticaria EXAM Physical Exam Narrative Exam Narrative: 35-year-old female vital signs stable on oxygen she is 100% on 2 L. She does not look septic or toxic. Blood pressure 134/100. Afebrile. HEENT exam unremarkable. She has a rash and skin breakdown on her forehead and other areas. Neck nontender no JVD. No lymphadenopathy. Lungs clear to auscultation bilaterally. Heart regular rhythm rate about 80. No murmur. Abdomen morbidly obese with soft nontender. Nondistended. No peritoneal signs. Moving all 4 extremities. 1+ pitting edema both lower extremities. Calves are nontender. Neurologically she is awake and alert with no focal motor deficits. Const Vital Signs: 02/07/21 01:16 02/07/21 01:23 02/07/21 01:24 Temperature 98.4 F 98.5 F Temperature Source Temporal Temporal Pulse Rate 84 84 Respiratory Rate 17 22 H Blood Pressure 134/100 H 135/100 H Blood Pressure Mean 111 111 Pulse Ox 100 100 Oxygen Delivery Method Nasal Cannula Oxygen Flow Rate (L/min) 2 02/07/21 02:19 02/07/21 02:24 Temperature 98.6 F Temperature Source Temporal Pulse Rate 74 Respiratory Rate 17 Blood Pressure 130/64 H Blood Pressure Mean 86 Pulse Ox 99 98 Oxygen Delivery Method Nasal Cannula Oxygen Flow Rate (L/min) 2 2 Positive well nourished, well developed and obese; Negative for cachectic, contractures or unkempt General Appearance ED: well developed and NAD; Negative for unkempt, cachectic, contractures, cyanotic or diaphoretic Nutritional Appearance: obese; Negative for cachectic HEENT Reports moist mucous membranes Negative for trauma or tenderness Eyes PERRL and EOMs intact bilaterally Neck no lymphadenopathy, supple and no JVD General: Negative for tenderness Chest Wall inspection of chest normal and palpation of chest normal Resp normal respiratory effort and clear to auscultation bilaterally Auscultation: Negative for rales, rhonchi or wheezes Cardio regular rate, regular rhythm, S1 normal heart sound, S2 normal heart sound and no murmurs GI normal to inspection, nondistended, normoactive bowel sounds, non-tender, non-distended and no masses Inspection: Negative for abdominal distention Auscultation: normoactive bowel sounds Palpation: soft; Negative for tender, guarding or rebound tenderness present Back/Spine no CVA tenderness Extremity General Extremety ED: Yes edema; Negative for tenderness General Extremity: edema Neuro oriented x3 Sensorium / Orientation: alert; Negative for orientation impaired, lethargic or stuporous Motor Exam: strength 5/5 throughout Psych mental status grossly normal Appearance: Negative for unkempt Skin no wounds Rashes: rashes noted MDM MDM MDM Narrative Medical decision making narrative: 55-year-old female past medical history of diabetes NV, CHF and renal insufficiency. Recently hospitalized in [place]. Recently seen here. Has positive blood cultures for staph aureus x2. Will be further evaluated. Patient also tells me she recently had ultrasounds of her lower extremity showing no DVTs. Repeat exam no change at 3 AM. Due to the patient's bacteremia from recent blood cultures. Her acute CHF. And her overall medical condition she will be admitted. Of already spoken to the hospitalist. She will be started on IV antibiotics Zosyn and Vanco. She will be given IV Lasix. And she wanted her medications for anxiety and [place] for pain. Lab Data Attestation: I reviewed the patient's lab results. Lab results narrative: CBC shows an elevated white count 18,000. Previously was 24. Hemoglobin 8.7 which is her baseline anemia. Patient is on Coumadin her INR is 2.2. Electrolytes show an anion gap at 9 BUN and creatinine of 43 and 1.2 consistent with dehydration. Glucose 138. Troponin normal. Labs: Laboratory Results - last 24 hr 02/07/21 02/07/21 02/07/21 02:00 02:00 02:00 WBC 18.2 H RBC 2.96 L Hgb 8.7 L Hct 26.7 L MCV 90.2 MCH 29.4 MCHC 32.6 RDW Std Deviation 59.0 H RDW Coeff of Sherine 18.1 H Plt Count 765 H* MPV 10.6 Immature Gran % (Auto) 0.600 Neut % (Auto) 95.3 H Lymph % (Auto) 1.7 L [place] % (Auto) 0.3 Eos % (Auto) 1.9 Baso % (Auto) 0.2 Absolute Neuts (auto) 17.3 H Absolute Lymphs (auto) 0.31 L Nucleated RBC % 2.9 Diff Path Review May foll Target Cells 1+ PT 24.0 H INR 2.2 Sodium 134 L Potassium 4.5 Chloride 97 L Carbon Dioxide 28.0 Anion Gap 9 BUN 43 H Creatinine 1.29 H Estim Creat Clear Calc 38.06 Est GFR (MDRD) Af Amer 55 L Est GFR (MDRD) Non-Af 45 L BUN/Creatinine Ratio 33.3 H Glucose 138 H Calcium 8.6 Troponin I High Sens 13 Radiography Chest X-Ray - ED: 1 View and Read by ED Physician Diagnostic Testing: Radiology Impression Chest X-Ray 02/07/21 01:37 IMPRESSION: Cardiomegaly and mild pulmonary vascular congestion. Electronically Signed: Anca Torres MD at 2:52 EDT , Service support , Rhythm Strip Rhythm Strip: Sinus Rhythm Rate: 83 Ectopy: None EKG Initial EKG: Attestation: I personally reviewed and interpreted this EKG as follows: Interpretation: Sinus Rhythm and No Acute Injury Pattern Comments: Normal sinus rhythm rate of 83 no acute signs of NV or ischemia. Unchanged from prior EKG from January. Prior: Unchanged Discharge Plan Dx/Rx/DC Orders Clinical Impression: Leukocytosis, CHF (congestive heart failure), Bacteremia Disposition Disposition: [facility]
[2021-02-07 02:16] LABS: Absolute Lymphocyte Count 0.31 X10^3/uL (0.83-4.51); Absolute Neutrophil Count 17.3 X10^3/uL (2.0-7.7); Basophil# 0.04 X10^3/uL; Basophil% 0.2 % (0-1); Eosinophil# 0.34 X10^3/uL; Eosinophils% 1.9 % (0-5); Hematocrit 26.7 % (37-47); Hemoglobin 8.7 g/dL (12.0-15.0); Lymphocyte # 0.31 X10^3/ul (0.83-4.51); Lymphocyte % 1.7 % (19-41); Mean Corp Hgb Conc 32.6 g/dL (32-36); Mean Corpuscular Hgb 29.4 pg (27.0-32.0); Mean Corpuscular Volume 90.2 fL (81-99); Mean Platelet Vol. 10.6 fl (6.2-12.0); Monocyte# 0.05 X10^3/uL; Monocyte% 0.3 % (0-10); NRBC Flagged by Analyzer 2.9 % (0-5); Neutrophil # 17.32 X10^3/uL (2.7-7.7); Neutrophil % 95.3 % (47-70); POSITIVE COUNT YES; POSITIVE DIFFERENTIAL YES; POSITIVE MORPHOLOGY YES; Platelet Count 765 K/mm3 (150-450); RBC Distribution Width CV 18.1 % (11.6-14.6); Red Blood Count 2.96 M/mm3 (4.2-5.4); White Blood Count 18.2 K/mm3 (4.4-11.0)
--- NOTE | 2021-02-07 02:20 | HP.PCM.HOS_ITS ---
HPI - General General Date of Admission: 02/07/21 HPI Narrative IRWIN ORTEGA, is a 55 F with a complicated past medical history who presented to the emergency department [facility] early on the a.m. of 02/07/2021 with the complaint of decreased ability to urinate. She evidently is residing in a nursing facility and was unable to urinate over the last 8 hours and the nursing facility felt she was short of breath as well. The patient states that she is always short of breath and this is not a new symptom for her but the urination issues were. She was recently seen in the emergency department on 02/04/2021 for rash and right shoulder pain. At that time she was noted to have a significant leukocytosis that was greater than 20,000. An RPR was done given her rash and that was negative. She was started on empiric antibiotics and blood cultures were obtained. She was evaluated by the hospitalist at that time and discharged with recommendation for outpatient derm atology and follow-up in 1 week for lab work and was sent back to the long-term. She did have a recent extended hospitalization in [place] per her report and at that time was discharged to the long-term as she was unable to care for herself independently at home. The blood cultures that were obtained on 02/04/2021 have resulted positive for staph aureus in 2 of 2 blood cultures. Her CBC shows a leukocytosis of 18.2 chronic stable anemia and a markedly elevated platelet count at 765,000. She has a marked left shift. She is chronically on anticoagulation and her INR on admission was 2.2. Her be MP showed worsening renal function with a serum creatinine of 1.29 and a BUN of 43 up from 37 and 1.11 on 02/04/2021. A UA was performed and shows no signs of acute infection. A chest x-ray was performed and shows mild cardiomegaly with questionable mild pulmonary vascular congestion but overall penetration is poor with her markedly elevated BMI. In the emergency department she was given vancomycin and Zosyn and a dose of Lasix and admission was requested. [facility] Medical History (Updated 02/07/21 @ 04:[address] Suzy Valladares DO) Anemia CHF (congestive heart failure) Chronic pain Depression Diabetes HTN (hypertension) Hyperlipidemia Morbid obesity Rheumatoid arthritis Home Medications atorvastatin 40 mg PO QHS 01/23/21 [History Last Taken Unknown] furosemide [Lasix] 40 mg PO DAILY 01/23/21 [History Last Taken Unknown] insulin glargine [Lantus Solostar U-100 Insulin] 30 unit SUBCUT QHS 01/23/21 [History Last Taken Unknown] insulin glargine [Lantus Solostar U-100 Insulin] 40 unit SUBCUT DAILY 01/23/21 [History Last Taken Unknown] insulin lispro [Humalog KwikPen Insulin] See Protocol SUBCUT TIDCM 01/23/21 [History Last Taken Unknown] losartan 50 mg PO DAILY 01/23/21 [History Last Taken Unknown] methotrexate sodium 20 mg PO QWEEK 01/23/21 [History Last Taken Unknown] metoprolol tartrate 37.5 mg PO BID 01/23/21 [History Last Taken Unknown] venlafaxine 25 mg PO DAILY 01/23/21 [History Last Taken Unknown] hydrocodone-acetaminophen 1 tab PO Q4H PRN PRN 2 Days #15 tablet 02/05/21 [Rx Last Taken Unknown] albuterol sulfate [ProAir HFA] 2 puff INHALATION Q6H PRN 02/07/21 [History Last Taken Unknown] doxycycline hyclate [Doxy-Caps] 100 mg PO BID 02/07/21 [History Last Taken Unknown] folic acid 1 mg PO DAILY 02/07/21 [History Last Taken Unknown] hydroxyzine HCl 50 mg PO TID 02/07/21 [History Last Taken Unknown] ibuprofen 400 mg PO Q8H PRN 02/07/21 [History Last Taken Unknown] nystatin 1 unit TID 02/07/21 [History Last Taken Unknown] omeprazole 20 mg PO DAILY 02/07/21 [History Last Taken Unknown] [id number] 1 cap PO DAILY 02/07/21 [History Last Taken Unknown] venlafaxine [Effexor XR] 150 mg PO DAILY 02/07/21 [History Last Taken Unknown] Allergy/AdvReac Type Severity Reaction Status Date / Time codeine Allergy Other Verified 02/07/21 01:25 Family History Other Cancer Heart disease Hypertension Surgical History Stented coronary artery Social History Smoking Status: Never smoker ROS Constitutional Constitutional: Reports change in weight, chills, malaise and weakness; Denies anorexia, fatigue, fever(s), night sweats or other Eyes Eyes: Denies blurry vision, change in eye color, change in vision, discharge from eye(s), double vision, erythema, eye pain, loss of vision or other ENT HEENT: Denies abnormal hearing, dysphagia, ear pain, epistaxis, headache(s), hearing loss, nasal congestion, nasal discharge, post nasal drip, sinus pressure, sore throat or other Cardiovascular Cardiovascular: Reports dyspnea on exertion and orthopnea; Denies chest pain, claudication, edema, lightheadedness, palpitations, paroxysmal nocturnal dyspnea, rapid heart rate, syncope or other Respiratory/Chest Respiratory/Chest: Reports shortness of breath at rest and shortness of breath with exertion; Denies cough, dyspnea, excessive phlegm production, hemoptysis, productive cough, wheezing or other Gastrointestinal Gastrointestinal: Denies abdominal pain, coffee ground emesis, constipation, diarrhea, dyspepsia, hematemesis, hematochezia, loose stools, melena, nausea, vomiting or other Genitourinary Genitourinary: Reports difficulty urinating and urinary hesitancy; Denies burning urination, dysuria, hematuria, nocturia, urinary frequency, urinary incontinence, urinary urgency or other Musculoskeletal Musculoskeletal: Reports arthralgias, back pain, joint pain, joint stiffness and joint swelling; Denies myalgias, neck pain or other Neurologic Neurologic: Reports numbness and tingling; Denies abnormal gait, abnormal speech, confusion, disequilibrium, dizziness, focal weakness, headache(s), paresthesias, seizure-like activity, seizures, syncope, tremor(s) or other Psychiatric Psychiatric: Reports anxiety and depression; Denies homicidal ideation, suicidal ideation or other Endocrine Endocrinology: Denies change in body appearance, cold intolerance, excessive sweating, heat intolerance, polydipsia, polyuria or other Hematologic/Lymphatic Hematologic/Lymphatic: Reports anemia; Denies easy bleeding, easy bruising, lymphadenopathy or other Allergic/Immunologic Allergic/Immunologic: Reports other Details: Rash on hands and face Vital Signs Vital Signs Vital Signs: 02/07/21 01:16 02/07/21 01:23 02/07/21 01:24 Temperature 98.4 F 98.5 F Temperature Source Temporal Temporal Pulse Rate 84 84 Respiratory Rate 17 22 H Blood Pressure 134/100 H 135/100 H Blood Pressure Mean 111 111 Pulse Ox 100 100 Oxygen Delivery Method Nasal Cannula Oxygen Flow Rate (L/min) 2 Weight Weight: 150.4 kg Body Mass Index (BMI) 60.6 Physical Exam Const alert, oriented x3 and no apparent distress Constitutional Narrative: Super morbid obese middle-aged white female sitting up in bed, mildly dyspneic with conversation but patient comfortable on room air and states that this is chronic for her General Appearance: cooperative HEENT normocephalic and hearing grossly normal bilaterally HEENT Narrative: Mucous membranes are dry, dentition is poor, Mallampati is 4, short thick neck, multiple small wounds all over her face bilateral ears that appear to be picked at Eyes PERRL, EOMs intact bilaterally and conjunctivae normal Eyes Narrative: Mildly pale conjunctiva, no scleral icterus Neck no lymphadenopathy, supple and no JVD Neck Narrative: Short thick neck Resp no retractions, no use of accessory muscles and clear to auscultation bilaterally Resp Narrative: Mildly dyspneic with conversation but patient states that this is chronic for her, breath sounds are very distant secondary to body habitus but no adventitious sounds auscultated Auscultation: Negative for crackles, rales, rhonchi or wheezes Cardio regular rate, regular rhythm, S1 normal heart sound, S2 normal heart sound, no murmurs, no rub, no gallops, no clicks and no JVD Cardio Narrative: Very distant heart tones and auscultation was difficult secondary to body habitus GI normal to inspection, nondistended, normoactive bowel sounds, soft to palpation, non-tender and non-distended Extremity Extremity Narrative: No clubbing or cyanosis, 2-3+ pitting edema bilateral acute lower extremities, no signs of chronic venous stasis Peripheral Pulses: Yes pulses 2+ throughout Skin skin turgor normal, no jaundice, no petechiae and no mottling Skin Narrative: Rash on left hand that looks vesicular in nature and rash on face that it appears to be picked that but no vesicles noted Neuro oriented x3, CN's II-XII intact bilaterally and moves all extremities Neuro Narrative: Marked generalized weakness proximal greater than distal Sensorium / Orientation: awake and alert Speech: speech normal Psych affect normal Psych Narrative: Mood is slightly depressed Results Lab / Micro Data Attestation: I reviewed the patient's lab results. Result Diagrams: 02/07/21 02:00 02/07/21 02:00 Assessment & Plan Assessment/Plan (1) Dermatitis: (2) Leukocytosis: QUALIFIERS: Leukocytosis type: other Qualified Code(s): D72.828 - Other elevated white blood cell count (3) Staphylococcus aureus bacteremia: (4) RHODA (acute kidney injury): (5) Urinary retention: (6) Thrombocytosis: PLAN: Staph aureus bacteremia -No current signs of acute sepsis -We will dose with Vanco and Zosyn in clinic till cultures are finalized and then narrow as able -Check echocardiogram -Suspect skin may be source -Consult infectious disease -We will likely need PICC and long-term antibiotics Mild RHODA -Serum creatinine is unknown but is elevated compared when patient was here on 02/04/2021 -We will hydrate gently with 1 L at 75 cc/h and then reevaluate -Lasix was given in the emergency department for CHF but patient is satting well on room air -Suspect patient may have some RV dysfunction at baseline given her body habitus and likelihood of having sleep apnea -We will continue losartan at this time but hold ibuprofen -Hold home Lasix Leukocytosis -Secondary to bacteremia -Monitor with antibiotic treatment Thrombocytosis -Suspect reactive and may be slightly related to hemoconcentration -Repeat in a.m. -Monitor closely Therapeutic INR -It is documented that the patient has a history of clot and is on Coumadin -INR is therapeutic but there is no record that the patient is on Coumadin -We will need to have pharmacy call for doses and to clarify that the patient is actually taking Coumadin -She is not on Coumadin her INR is elevated and a coagulopathy should be worked up Urinary retention -Carlos placed -Urine output is good with Carlos placement but urine is quite dark -IV fluids -Continue to monitor and would perform voiding trial once clinically more stable -If continues to be an issue may need to consider urology involvement Intertrigo candidiasis -Nystatin powder Dermatitis -Etiology unclear -Syphilis titer was performed and was nonreactive -Patient does have blistering lesions on left hand -Facial lesions appear to be picked at and may be anxiety induced -Continue to monitor and work-up further if needed DM-2 -Continue Lantus 30 units at at bedtime and 40 units in the morning -3 times daily SSI -Diabetic diet Rheumatoid arthritis -Continue pain medicine for pain management -Hold methotrexate Hypertension -continue metoprolol GERD -Continue PPI Depression/anxiety -Continue hydroxyzine Continue Effexor DVT prophylaxis -INR is 2.2 -Coumadin is not listed as a medication on her med rec -We will need to have pharmacy assistance to ascertain whether or not she is actually on Coumadin or not CODE STATUS -Full code Charges/Coding Visit Charges Inpatient E&M: 65103 Init Hosp L3
[2021-02-07 02:35] LABS: Differential Indicated SCAN CRITERIA MET
[2021-02-07 02:36] LABS: International Normalized Ratio 2.2
[2021-02-07 02:46] LABS: Target Cells 1+
[2021-02-07 02:59] LABS: Anion Gap 9 (5-15); BUN 43 mg/dL (7-18); BUN/Creat Ratio 33.3 RATIO (10-20); Calcium,Total 8.6 mg/dL (8.5-10.1); Chloride 97 mmol/L (98-107); Creatinine, Serum 1.29 mg/dL (0.55-1.02); EST Glomerular Filtration Rate 45 mL/min (>60); Est Glom Filt Rate - Afr Amer 55 mL/min (>60); Estimated Creatinine Clearance 38.06 ml/min; Glucose 138 mg/dL (74-106); Potassium 4.5 mmol/L (3.5-5.1); Sodium Level 134 mmol/L (136-145); Troponin-I HS 13 pg/mL (3.0-54.0)
[2021-02-07 03:13] LABS: Mucous, Urine 0 SEEN /hpf (<or=2+)
[2021-02-07 03:18] LABS: Color, Urine Yellow (Yellow); Glucose, Dipstick Normal (Normal); Ketone-Dipstick Negative (Negative); Leukocyte Esterase-Dipstick 25 /ul (Negative); Nitrite-Dipstick Negative (Negative); Occult Blood-Urine 25 /ul (Negative); Protein-Dipstick 500 mg/dl (Negative); Urine Clarity Clear (Clear); Urine Urobilinogen 1 mg/dl (Normal)
[2021-02-07 03:20] LABS: Urine Bilirubin Dipstick 1 mg/dL (Negative)
[2021-02-07 03:24] LABS: Bacteria 2+ /hpf (None Seen); Red Blood Cells-Urine 0-5 SEEN /hpf (0-5); Squamous Epithelial Cells - UA 0-5 SEEN /hpf (5-10); White Blood Cells 0-5 SEEN /hpf (0-5)
[2021-02-07] MEDS: HYDROcodone Bitartrate/Apap 5/325 Tablet PO ×3 (03:31→15:59)
[2021-02-07] MEDS: Furosemide 40 MG/4 ML Vial IV (03:34)
[2021-02-07] MEDS: hydrOXYzine PAM 25 MG Capsule 50 MG PO (03:34)
--- NOTE | 2021-02-07 03:41 | ECHOCS_ITS ---
Reason For Study: Bactermia Procedure This was a 2D Doppler, Color Flow transthoracic echocardiogram. The study was technically difficult. Contrast injection was performed. Exam performed portable in patient room. Left Ventricle Normal LV size. Left ventricular systolic function is normal. The estimated ejection fraction is 55 %. No evidence for diastolic dysfunction. No regional wall motion abnormalities noted. Right Ventricle Normal RV size. Normal systolic function. Atria The left atrium is not well visualized. The right atrium is not well visualized. No doppler evidence for ASD. Mitral Valve There is no mitral annular calcification. Normal mitral valve. Trivial mitral valve insufficiency. Tricuspid Valve Normal tricuspid valve. Mild tricuspid valve insufficiency. Right ventricular systolic pressure estimated to be 37 mmHg. Aortic Valve Trisinus/trileaflet aortic valve. Normal aortic valve. Trivial aortic valve insufficiency. Pulmonic Valve The pulmonic valve is not well visualized. Trivial pulmonic valve insufficiency. Great Vessels Normal sized aortic root. Pericardium/Pleural No pericardial effusion. Medication Diluted definity 2ml given slow IV push to enhance endocardial definition. MMode/2D Measurements & Calculations LVIDd: 5.0 cm IVSd: 1.0 cm Ao root diam: 3.4 cm LVIDs: 3.5 cm LVPWd: 1.1 cm FS: 30.0 % LVAd ap4: 27.3 cm2 SV(MOD-sp4): 39.1 ml SV(sp4-el): 42.9 ml LVLd ap4: 7.4 cm EDV(MOD-sp4): 83.0 ml EDV(sp4-el): 85.9 ml LVAs ap4: 18.2 cm2 LVLs ap4: 6.5 cm ESV(MOD-sp4): 44.0 ml ESV(sp4-el): 43.1 ml EF(MOD-sp4): 47.0 % EF(sp4-el): 49.9 % LA dimension(2D): 3.2 cm Doppler Measurements & Calculations MV E max allan: 100.9 cm/sec Ao V2 max: 162.2 cm/sec LV V1 max: 96.1 cm/sec MV A max allan: 60.5 cm/sec Ao max P.5 mmHg LV V1 max P.7 mmHg MV E/A: 1.7 PA V2 max: 82.7 cm/sec TR max allan: 289.7 cm/sec TR max P.6 mmHg ECHO/Echo Complete W/ Contrast Interpretation Summary The study was technically difficult. Contrast injection was performed. Left ventricular systolic function is normal. The estimated ejection fraction is 55 %. Trivial mitral valve insufficiency. Mild tricuspid valve insufficiency. Trivial aortic valve insufficiency. Trivial pulmonic valve insufficiency. Right ventricular systolic pressure estimated to be 37 mmHg. No evidence for diastolic dysfunction. Ordering Physician: Suzy Valladares Referring Physician: Aidan Roth Performed By: Caitlyn Deutsch RDCS
--- NOTE | 2021-02-07 03:48 | ED.RN ---
Brayan nurse aware of admit to PCU
[2021-02-07 04:24] LABS: Lactic Acid 1.1 mmol/L (0.4-1.9)
--- NOTE | 2021-02-07 06:30 | PCS.PANDOC ---
PANDEMIC DOCUMENTATION INITIATED: Date: 12/18/2020 Time: 190
[2021-02-07] MEDS: Acetaminophen 325 MG Tablet 650 MG PO (06:52)
[2021-02-07] MEDS: 0.9% Normal Saline 1,000 ML 75 ML IV (06:52)
[2021-02-07 08:35] LABS: Bedside Glucose 128 mg/dL (70-110)
--- NOTE | 2021-02-07 09:17 | CASEMGMT ---
Addendum entered by Marlen Perez 02/07/21 09:49: FRANCESCA spoke with patient and she said she will go wherever. She just wants to go where someone will help her move forward. She feels like she just keeps going backwards. FRANCESCA told her [facility] can take her and they started the process with her insurance. She said that is fine she will go to [facility] at d/c. FRANCESCA also called Jael Mckeon at [facility] and left her a voice mail letting her know patient was admitted and also sent her clinicals. Plan: d/c to [facility] under skilled level of care. Marlen ANDRE Original Note: FRANCESCA noted patient is from [place]. FRANCESCA faxed clinicals to [facility] with [place]. She then called FRANCESCA and said on Friday patient asked to have a referral sent to [facility]. Referral was sent and [facility] started the pre-cert. FRANCESCA will check with patient and [facility]. Marlen ANDRE
[2021-02-07] MEDS: Nystatin Powder 15gm Bottle 1 APPLIC TOPICAL ×3 (09:32→21:45)
[2021-02-07] MEDS: Venlafaxine XR 75 MG Capsule 225 MG PO (09:32)
[2021-02-07] MEDS: Metoprolol Tartrate 25 MG Tablet 37.5 MG PO ×2 (09:32→21:44)
[2021-02-07] MEDS: Enoxaparin 40 MG/0.4 ML Syringe SC ×2 (09:33→21:45)
--- NOTE | 2021-02-07 10:38 | CASEMGMT ---
FRANCESCA received a call from Jael Mckeon at [facility]. She confirmed patient can come there at discharge. She will submit new clinicals to insurance. FRANCESCA will send her PT/OT once done and keep her updated. Marlen ANDRE
[2021-02-07] MEDS: NYSTATIN 500,000 UNIT/5 ML UDC 500000 UNIT PO ×4 (11:24→21:45)
[2021-02-07 11:35] LABS: Bedside Glucose 126 mg/dL (70-110)
[2021-02-07 12:41] LABS: Pathologist Review Reviewed
--- NOTE | 2021-02-07 15:49 | CT_ITS ---
INDICATION: hypoxia, endocarditis EXAMINATION: CTA Chest WO/W Contrast Injection TECHNIQUE: Helically acquired images were obtained of the chest following administration of IV contrast. A radiation dose optimization technique was used for this scan. 3D postprocessing images including MIPS were reviewed. IV Contrast dosage and agent: IV 100mL [id number] COMPARISON: None. FINDINGS: Lungs: There is interlobular septal thickening. There is diffuse groundglass opacities. Mediastinum: The heart is enlarged. No mediastinal, hilar or axillary adenopathy. The thoracic aorta is unremarkable. No obvious filling defect seen within the visualized pulmonary arteries. Pleura: Small bilateral pleural effusions. Bones/Soft tissues: No suspicious osseous or soft tissue lesions Upper abdomen: No visualized abnormalities in the upper abdomen. CT/CTA Chest W/WO Contrast IMPRESSION: No evidence of acute pulmonary emboli to segmental level. Cardiomegaly with interstitial edema and small bilateral pleural effusions. Electronically Signed: Parveen Rodriguez MD at 16:55 EDT Tel , Service support ,
--- NOTE | 2021-02-07 15:50 | PCM.CONS.GEN ---
Assessment & Plan Assessment/Plan (1) Staphylococcus aureus bacteremia: PLAN: MRSA bacteremia, high suspicion for endocarditis given osler's nodes and splinter hemorrhage on hands. Repeat bcx. Cont vanc, stop zosyn. Has had covid shot, 1 of 2. TTE neg for veg. Will check CTA given her dyspnea and accessory muscle use. Will follow, thank you (2) RHODA (acute kidney injury): HPI Consult Data Date of Consult: 02/07/21 HPI Narrative HPI Narrative: IRWIN ORTEGA, is a 55 F who presented with several days dyspnea, not feeling well, fever. Recent hospital stay in [place], now at [facility]. No new joint/back pain. Has skin lesions, particularly on face with some scabbing. Came to ED, bcx 02/04 (+) mrsa, admitted on vanc/zosyn. Full ROS performed and neg except as noted above. [facility] Medical History Anemia CHF (congestive heart failure) Chronic pain Depression Diabetes HTN (hypertension) Hyperlipidemia Morbid obesity Rheumatoid arthritis Home Medications atorvastatin 40 mg PO QHS 01/23/21 [History Last Taken Unknown] furosemide [Lasix] 40 mg PO DAILY 01/23/21 [History Last Taken Unknown] insulin glargine [Lantus Solostar U-100 Insulin] 30 unit SUBCUT QHS 01/23/21 [History Last Taken Unknown] insulin glargine [Lantus Solostar U-100 Insulin] 40 unit SUBCUT DAILY 01/23/21 [History Last Taken Unknown] insulin lispro [Humalog KwikPen Insulin] See Protocol SUBCUT TIDCM 01/23/21 [History Last Taken Unknown] losartan 50 mg PO DAILY 01/23/21 [History Last Taken Unknown] methotrexate sodium 20 mg PO QWEEK 01/23/21 [History Last Taken Unknown] metoprolol tartrate 37.5 mg PO BID 01/23/21 [History Last Taken Unknown] venlafaxine 75 mg PO DAILY 01/23/21 [History Last Taken Unknown] hydrocodone-acetaminophen 1 tab PO Q4H PRN PRN 2 Days #15 tablet 02/05/21 [Rx Last Taken Unknown] albuterol sulfate [ProAir HFA] 2 puff INHALATION Q6H PRN 02/07/21 [History Last Taken Unknown] doxycycline hyclate [Doxy-Caps] 100 mg PO BID 02/07/21 [History Last Taken Unknown] folic acid 1 mg PO DAILY 02/07/21 [History Last Taken Unknown] hydroxyzine HCl 50 mg PO TID 02/07/21 [History Last Taken Unknown] ibuprofen 400 mg PO Q8H PRN 02/07/21 [History Last Taken Unknown] nystatin 1 unit TID 02/07/21 [History Last Taken Unknown] omeprazole 20 mg PO DAILY 02/07/21 [History Last Taken Unknown] [id number] 1 cap PO DAILY 02/07/21 [History Last Taken Unknown] venlafaxine [Effexor XR] 150 mg PO DAILY 02/07/21 [History Last Taken Unknown] Allergy/AdvReac Type Severity Reaction Status Date / Time codeine Allergy Other Verified 02/07/21 01:25 Family History Other Cancer Heart disease Hypertension Surgical History Stented coronary artery Social History Smoking Status: Never smoker Physical Exam Const alert and oriented x3 Constitutional Narrative: ill appearing General Appearance: cooperative HEENT normocephalic and head/scalp atraumatic Eyes PERRL and EOMs intact bilaterally Neck supple and No nodes Resp clear to auscultation bilaterally Effort and Inspection: uses accessory muscles Cardio regular rate and regular rhythm GI normal to inspection, nondistended, normoactive bowel sounds Extremity Extremity Narrative: No spine tenderness. General Extremity: edema Skin Skin Narrative: osler's nodes on both hands. Splinter hemorrhage on L 4th finger. Neuro CN's II-XII intact bilaterally Lab / Micro Data Result Diagrams: 02/07/21 02:00 02/07/21 02:00 Labs: Laboratory Results - last 24 hr 02/07/21 02:00: WBC 18.2 H, RBC 2.96 L, Hgb 8.7 L, Hct 26.7 L, MCV 90.2, MCH 29.4, MCHC 32.6, RDW Std Deviation 59.0 H, RDW Coeff of Sherine 18.1 H, Plt Count 765 H*, MPV 10.6, Immature Gran % (Auto) 0.600, Neut % (Auto) 95.3 H, Lymph % (Auto) 1.7 L, Spink % (Auto) 0.3, Eos % (Auto) 1.9, Baso % (Auto) 0.2, Absolute Neuts (auto) 17.3 H, Absolute Lymphs (auto) 0.31 L, Nucleated RBC % 2.9, Diff Path Review Reviewed, Target Cells 1+ 02/07/21 02:00: Sodium 134 L, Potassium 4.5, Chloride 97 L, Carbon Dioxide 28.0, Anion Gap 9, BUN 43 H, Creatinine 1.29 H, Estim Creat Clear Calc 38.06, Est GFR (MDRD) Af Amer 55 L, Est GFR (MDRD) Non-Af 45 L, BUN/Creatinine Ratio 33.3 H, Glucose 138 H, Calcium 8.6, Troponin I High Sens 13 02/07/21 02:00: PT 24.0 H, INR 2.2 02/07/21 02:15: Urine Color Yellow, Urine Clarity Clear, Urine pH 6.0, Ur Specific [place] 1.020, Urine Protein 500 H, Urine Glucose (UA) Normal, Urine Ketones Negative, Urine Occult Blood 25 H, Urine Nitrite Negative, Urine Bilirubin 1 H, Urine Urobilinogen 1 H, Ur Leukocyte Esterase 25 H, Urine RBC 0-5 SEEN, Urine WBC 0-5 SEEN, Ur Squamous Epith Cells 0-5 SEEN, Urine Bacteria 2+, Urine Mucus 0 SEEN 02/07/21 03:28: Lactic Acid 1.1 02/07/21 06:49: POC Glucose 128 H 02/07/21 11:22: POC Glucose 126 H Micro: Microbiology 02/07/21 02:00 Interface Orders SARS-CoV-2 Antigen (Rapid) - Final Rhythm Strip Rhythm Strip: Sinus Rhythm Rate: 83 Ectopy: None Radiology Impression Chest X-Ray 02/07/21 01:37 IMPRESSION: Cardiomegaly and mild pulmonary vascular congestion. Electronically Signed: Anca Torres MD at 2:52 EDT , Service support , Echocardiogram 02/07/21 03:41 Interpretation Summary The study was technically difficult. Contrast injection was performed. Left ventricular systolic function is normal. The estimated ejection fraction is 55 %. Trivial mitral valve insufficiency. Mild tricuspid valve insufficiency. Trivial aortic valve insufficiency. Trivial pulmonic valve insufficiency. Right ventricular systolic pressure estimated to be 37 mmHg. No evidence for diastolic dysfunction. Ordering Physician: Suzy Valladares Referring Physician: Aidan Roth Performed By: Caitlyn Deutsch RDCS
--- NOTE | 2021-02-07 16:05 | PCM.RX.CS ---
Consult Pharmacy has been consulted to manage selected antiobiotic: Vancomycin Type of Consult: New start Suspected Infection: Bacteremia, Endocarditis Prior Doses of Antibiotics Received/Current Regimen: received vanc 2000mg IV x1 in E.R. this morning at 04:07 Labs: Sodium 134 mmol/L (136-145) L 02/07/21 02:00 Potassium 4.5 mmol/L (3.5-5.1) 02/07/21 02:00 Chloride 97 mmol/L (98-107) L 02/07/21 02:00 Carbon Dioxide 28.0 mmol/L (21.0-32.0) 02/07/21 02:00 Anion Gap 9 (5-15) 02/07/21 02:00 BUN 43 mg/dL (7-18) H 02/07/21 02:00 Creatinine 1.29 mg/dL (0.55-1.02) H 02/07/21 02:00 Est GFR (MDRD) Af Amer 55 mL/min (>60) L 02/07/21 02:00 Est GFR (MDRD) Non-Af 45 mL/min (>60) L 02/07/21 02:00 BUN/Creatinine Ratio 33.3 RATIO (10-20) H 02/07/21 02:00 Glucose 138 mg/dL (74-106) H 02/07/21 02:00 Microbiology: Microbiology 02/07/21 02:00 Interface Orders SARS-CoV-2 Antigen (Rapid) - Final Weight used for dosin.9 kg Estimated Creatinine Clearance: 66.8ml/min Goal Trough: 15-20 mcg/mL Pharmacy Plan for Drug Dosing: The patient received the initial dose of 2000mg in E.R. this morning so will continue with 1500mg IV q12h. Will check a vanc trough level before the 4th total dose tomorrow. The patient's CrCl of 66.8ml/min was calculated using an adjusted body weight of 88kg. Pharmacy Service will continue to monitor and adjust dosing as required. Follow-Up Labs: Trough Vancomycin Labs to be done on [date and time ordered]: 02/08/21 16:30
[2021-02-07 17:41] LABS: Bedside Glucose 129 mg/dL (70-110)
[2021-02-07] MEDS: Atorvastatin Calcium 40 MG Tablet PO (21:44)
[2021-02-07 23:26] LABS: Bedside Glucose 101 mg/dL (70-110)
[2021-02-08] VITALS (13 sets, daily range): BP systolic 94–139; BP diastolic 53–81; PULSE 68–90; RESP 18; TEMP 36.6–37.1; O2SAT 95–100
[2021-02-08] MEDS: Nystatin Powder 15gm Bottle 1 APPLIC TOPICAL ×3 (05:00→20:39)
[2021-02-08 05:56] LABS: Absolute Lymphocyte Count 0.31 X10^3/uL (0.83-4.51); Absolute Neutrophil Count 9.6 X10^3/uL (2.0-7.7); Basophil# 0.06 X10^3/uL; Basophil% 0.6 % (0-1); Eosinophil# 0.32 X10^3/uL; Hematocrit 22.8 % (37-47); Hemoglobin 7.5 g/dL (12.0-15.0); Lymphocyte # 0.31 X10^3/ul (0.83-4.51); Lymphocyte % 2.9 % (19-41); Mean Corp Hgb Conc 32.9 g/dL (32-36); Mean Corpuscular Hgb 28.7 pg (27.0-32.0); Mean Corpuscular Volume 87.4 fL (81-99); Mean Platelet Vol. 10.8 fl (6.2-12.0); Monocyte# 0.19 X10^3/uL; Monocyte% 1.8 % (0-10); NRBC Flagged by Analyzer 5.3 % (0-5); Neutrophil # 9.64 X10^3/uL (2.7-7.7); Neutrophil % 89.7 % (47-70); POSITIVE COUNT YES; POSITIVE DIFFERENTIAL YES; POSITIVE MORPHOLOGY YES; Platelet Count 635 K/mm3 (150-450); RBC Distribution Width CV 18.1 % (11.6-14.6); RBC Distribution Width SD 56.5 fl (35.1-43.9); Red Blood Count 2.61 M/mm3 (4.2-5.4); White Blood Count 10.7 K/mm3 (4.4-11.0)
[2021-02-08 06:14] LABS: International Normalized Ratio 1.9; Prothrombin Time (Protime)PT. 20.7 SECONDS (11.7-14.9)
[2021-02-08 06:33] LABS: Differential Indicated SCAN CRITERIA MET
[2021-02-08 06:46] LABS: Bedside Glucose 64 mg/dL (70-110)
[2021-02-08 06:46] LABS: Bedside Glucose 85 mg/dL (70-110)
[2021-02-08 07:01] LABS: ALB/GLOB Ratio 0.2 RATIO (0.9-2.4); AST(SGOT) 72 U/L (15-37); Alanine Aminotransfer ALT/SGPT 31 U/L (13-56); Albumin, Serum 0.9 g/dL (3.2-5.0); Alkaline Phosphatase 707 U/L (45-117); Anion Gap 9 (5-15); BUN 52 mg/dL (7-18); BUN/Creat Ratio 31.3 RATIO (10-20); Calcium,Total 8.2 mg/dL (8.5-10.1); Chloride 101 mmol/L (98-107); Creatinine, Serum 1.66 mg/dL (0.55-1.02); EST Glomerular Filtration Rate 34 mL/min (>60); Est Glom Filt Rate - Afr Amer 41 mL/min (>60); Estimated Creatinine Clearance 29.57 ml/min; Globulin 5.8 g/dL (2.2-4.2); Glucose 69 mg/dL (74-106); Magnesium 2.2 mg/dL (1.6-2.6); Phosphorus 4.6 mg/dL (2.5-4.9); Potassium 4.4 mmol/L (3.5-5.1); Protein, Total 6.7 g/dL (6.4-8.2); Sodium Level 135 mmol/L (136-145); Thyroid Stim Hormone (TSH) 4.98 uIU/mL (0.358-3.74)
[2021-02-08 07:18] LABS: Target Cells 1+
[2021-02-08] MEDS: Enoxaparin 40 MG/0.4 ML Syringe SC ×2 (09:17→20:24)
[2021-02-08] MEDS: Metoprolol Tartrate 25 MG Tablet 37.5 MG PO ×2 (09:17→20:23)
[2021-02-08] MEDS: NYSTATIN 500,000 UNIT/5 ML UDC 500000 UNIT PO ×4 (09:18→20:24)
--- NOTE | 2021-02-08 10:43 | PCM.PN.ID ---
Physical Exam Narrative Not feeling much better, no fever, legs very swollen. Const alert General Appearance: cooperative Resp normal air movement and clear to auscultation bilaterally Cardio regular rate and regular rhythm GI normal to inspection, nondistended, normoactive bowel sounds Extremity General Extremity: edema Skin Skin Narrative: scabs on face ID ID: Route of nutrition/ use of supplements: [] Nutritional Intake: [] IV Site: [] Carlos Catheter: [] Assessment & Plan Assessment/Plan (1) Staphylococcus aureus bacteremia: PLAN: MRSA bacteremia, high suspicion for endocarditis given osler's nodes and splinter hemorrhage on hands. Repeat bcx. Cont vanc. Has had covid shot, 1 of 2. TTE neg for veg. Pending CTA given her dyspnea and accessory muscle use. Will check TRESSA tomorrow. Will follow (2) RHODA (acute kidney injury):
[2021-02-08] MEDS: oxyCODONE 5 MG Tablet PO ×2 (11:32→16:34)
[2021-02-08 11:50] LABS: Bedside Glucose 93 mg/dL (70-110)
--- NOTE | 2021-02-08 12:54 | PCM.PN.HOSP ---
Documented by User: Olinda Kelley NP, DATA COLLECTION INTERVIEWER-C 02/08/21 13:09 Subjective Subjective 1. MRSA bacteremia-high suspicion for endocarditis-ID following. Continue IV vancomycin. Plan for TRESSA. Repeat blood cultures today. CTA ordered, report pending. 2. Acute kidney injury-IV fluids, trend BMP. Carlos placed due to retention. Hold nephrotoxic regimen. 3. Urinary retention-Carlos catheter in place. Will need voiding trial prior to discharge. If recurrent issue, will need urology consult. 4. History of DVT? Per documentation on Coumadin however not noted in external pharmacy or med list. Recent hospitalization at [facility] 2 weeks prior, will request records. 5. Normocytic anemia-unclear chronicity. Check iron studies. Trend CBC. Transfuse for hemoglobin less than 7. Check stool for occult blood. Initiate PPI empirically. 6. Type 2 diabetes [id number] with sliding scale insulin. Continue home insulin regimen. 7. Rheumatoid arthritis-hold methotrexate. 8. Dermatitis-picking behavior on face. Topical Bactroban. Discouraged picking scabbed areas. 9. Intertrigo candidiasis-nystatin powder. 10. Hypertension-continue metoprolol. 11. Hyperlipidemia-continue statin. 12. GERD-continue PPI. 13. Depression/anxiety-on hydroxyzine, Effexor. DVT prophylaxis-Lovenox subcu Discharge planning: Return to SNF for rehab when medically stable. Patient reports recent complicated admission at [place] 2 weeks prior, will request records. This patient was seen by Olinda Kelley, TAD-C under the supervision of Dr. Smith. Objective Data Objective Data Vital Signs: Vital Signs Temp Pulse Resp BP Pulse Ox 98.0 F 74 18 126/62 H 96 02/08/21 09:09 02/08/21 10:59 02/08/21 09:09 02/08/21 09:09 02/08/21 09:09 Oxygen Flow Rate (L/min) 0.5 Oxygen Delivery Method Nasal Cannula Weight: 319 lb 7.197 oz Body Mass Index (BMI) 58.4 Intake & Output: Intake and Output for Last 24 Hours 02/06/21 02/07/21 02/08/21 23:59 23:59 23:59 Intake Total 2700 / 2700 1430 / 1430 Output Total 1250 / 1250 200 / 200 Balance 1450 / 1450 1230 / 1230 Lab / Micro Data Result Diagrams: 02/08/21 05:30 02/08/21 05:30 Labs: Laboratory Results - last 24 hr 02/07/21 15:53: POC Glucose 129 H 02/07/21 21:42: POC Glucose 101 02/08/21 05:30: PT 20.7 H, INR 1.9 02/08/21 05:30: Sodium 135 L, Potassium 4.4, Chloride 101, Carbon Dioxide 25.0, Anion Gap 9, BUN 52 H, Creatinine 1.66 H, Estim Creat Clear Calc 29.57, Est GFR (MDRD) Af Amer 41 L, Est GFR (MDRD) Non-Af 34 L, BUN/Creatinine Ratio 31.3 H, Glucose 69 L, Calcium 8.2 L, Phosphorus 4.6, Magnesium 2.2, Total Bilirubin 2.20 H, AST 72 H, ALT 31, Alkaline Phosphatase 707 H, Total Protein 6.7, Albumin 0.9 L, Globulin 5.8 H, Albumin/Globulin Ratio 0.2 L, TSH 4.98 H 02/08/21 05:30: WBC 10.7, RBC 2.61 L, Hgb 7.5 L, Hct 22.8 L, MCV 87.4, MCH 28.7, MCHC 32.9, RDW Std Deviation 56.5 H, RDW Coeff of Sherine 18.1 H, Plt Count 635 H, MPV 10.8, Immature Gran % (Auto) 2.000 H, Neut % (Auto) 89.7 H, Lymph % (Auto) 2.9 L, [place] % (Auto) 1.8, Eos % (Auto) 3.0, Baso % (Auto) 0.6, Absolute Neuts (auto) 9.6 H, Absolute Lymphs (auto) 0.31 L, Nucleated RBC % 5.3 H, Target Cells 1+ 02/08/21 06:18: POC Glucose 64 L 02/08/21 06:36: POC Glucose 85 02/08/21 11:20: POC Glucose 93 Micro: Microbiology 02/07/21 02:00 Interface Orders SARS-CoV-2 Antigen (Rapid) - Final Rhythm Strip Rhythm Strip: Sinus Rhythm Rate: 83 Ectopy: None Documented by User: Dr. Dusty Smith MD 02/08/21 13:43 Objective Data Lab / Micro Data Result Diagrams: 02/08/21 05:30 02/08/21 05:30 Assessment & Plan Addt'l Comments This patient was seen in conjunction with MOISES Maher . I have independently interviewed and examined the patient and reviewed pertinent historical, laboratory, and other data. Please refer to MOISES Maher note for details of this patient's presentation, findings, and recommendations. I have reviewed MOISES Maher note and concur with documented findings. In brief, patient i 55-year-old lady called back to the ED after blood cultures came back positive. Admitted to a monitored bed with consultation placed to infectious disease Physical Examination: GENERAL: cooperative HEENT: Atraumatic; EYES; Anicteric, Normal Conjunctiva NECK; supple, normal thyroid, RESPIRATORY: Diminished to auscultation CARDIOVASCULAR: Regular S1 S2, GI: soft, normoactive bowel sounds, : No Renal angle tenderness; EXTREMITIES: edema, no clubbing, MUSCULOSKELETAL: no muscle waisting NEURO: Awake; no lateralizing signs. SKIN: Multiple areas of excoriation patient apparently picks PSYCH; Flat affect Assessment: 1. MRSA bacteremia with high suspicion for endocarditis 2. Acute kidney injury 3. Diabetes mellitus type 2 4. Anemia of chronic disorder 5. Essential hypertension 6. Dyslipidemia 7. Obesity with BMI of 58.4 7. GERD 8. Depression with anxiety 9. Rheumatoid arthritis 10. DVT prophylaxis Recommendations: 1. I have discussed the results of my overview and impressions with the patient 2. Options for management were reviewed Charges/Coding Visit Charges Inpatient E&M: 39059 Subs Hosp L3
[2021-02-08 13:59] LABS: Iron 31 ug/dL (50-170); Iron Binding Capacity,Total 205 ug/dL (250-450); PERCENT IRON SATURATION 15.1 % (15.0-55.0)
[2021-02-08 16:56] LABS: Vancomycin, Trough Level 34.1 ug/mL (5.0-15.0)
[2021-02-08 17:00] LABS: Bedside Glucose 90 mg/dL (70-110)
[2021-02-08 17:07] LABS: Vitamin B12 > 2000 pg/mL (211-911)
--- NOTE | 2021-02-08 18:16 | PCM.RX.CS ---
Consult Pharmacy has been consulted to manage selected antiobiotic: Vancomycin Type of Consult: Follow-up Suspected Infection: Bacteremia, Endocarditis Prior Doses of Antibiotics Received/Current Regimen: Currently on 1500mg iv q12h. Labs: Sodium 135 mmol/L (136-145) L 02/08/21 05:30 Potassium 4.4 mmol/L (3.5-5.1) 02/08/21 05:30 Chloride 101 mmol/L (98-107) 02/08/21 05:30 Carbon Dioxide 25.0 mmol/L (21.0-32.0) 02/08/21 05:30 Anion Gap 9 (5-15) 02/08/21 05:30 BUN 52 mg/dL (7-18) H 02/08/21 05:30 Creatinine 1.66 mg/dL (0.55-1.02) H 02/08/21 05:30 Est GFR (MDRD) Af Amer 41 mL/min (>60) L 02/08/21 05:30 Est GFR (MDRD) Non-Af 34 mL/min (>60) L 02/08/21 05:30 BUN/Creatinine Ratio 31.3 RATIO (10-20) H 02/08/21 05:30 Glucose 69 mg/dL (74-106) L 02/08/21 05:30 Vancomycin Trough 34.1 ug/mL (5.0-15.0) H 02/08/21 15:53 Microbiology: Microbiology 02/07/21 02:00 Interface Orders SARS-CoV-2 Antigen (Rapid) - Final Weight used for dosin.9 kg Estimated Creatinine Clearance: 52ml/min Goal Trough: 15-20 mcg/mL Pharmacy Plan for Drug Dosing: Trough level today was 34.1 ~11hrs post last dose. Renal function changed from Cr 1.29 to 1.66. Goal range is 15-20mcg/ml. Will hold further dosing. Random level ordered for 02.09.21 in AM. New dose and freq. will be calculated when level <20. Pharmacy Service will continue to monitor and adjust dosing as required. Follow-Up Labs: Trough Vancomycin - 02.09.21@0600 random level
[2021-02-08] MEDS: Pantoprazole Sodium 40 MG Tablet PO (20:24)
[2021-02-08] MEDS: Atorvastatin Calcium 40 MG Tablet PO (20:24)
[2021-02-08] MEDS: HYDROcodone Bitartrate/Apap 5/325 Tablet PO (20:29)
[2021-02-08] MEDS: Mupirocin Ointment 22gm Tube 1 APPLIC TOPICAL (20:32)
[2021-02-08 21:15] LABS: Bedside Glucose 84 mg/dL (70-110)
[2021-02-09] VITALS (12 sets, daily range): BP systolic 118–169; BP diastolic 59–119; PULSE 72–86; RESP 12–22; TEMP 36.4–36.7; O2SAT 94–100
[2021-02-09] MEDS: Nystatin Powder 15gm Bottle 1 APPLIC TOPICAL ×3 (06:34→20:47)
[2021-02-09 07:06] LABS: Bedside Glucose 72 mg/dL (70-110)
[2021-02-09 07:40] LABS: Absolute Lymphocyte Count 0.51 X10^3/uL (0.83-4.51); Absolute Neutrophil Count 9.5 X10^3/uL (2.0-7.7); Basophil# 0.04 X10^3/uL; Basophil% 0.4 % (0-1); Eosinophil# 0.56 X10^3/uL; Eosinophils% 5.1 % (0-5); Hematocrit 24.2 % (37-47); Lymphocyte # 0.51 X10^3/ul (0.83-4.51); Lymphocyte % 4.6 % (19-41); Mean Corp Hgb Conc 33.1 g/dL (32-36); Mean Corpuscular Hgb 28.9 pg (27.0-32.0); Mean Corpuscular Volume 87.4 fL (81-99); Mean Platelet Vol. 10.2 fl (6.2-12.0); Monocyte# 0.23 X10^3/uL; Monocyte% 2.1 % (0-10); NRBC Flagged by Analyzer 9.5 % (0-5); Neutrophil # 9.48 X10^3/uL (2.7-7.7); Neutrophil % 86.2 % (47-70); POSITIVE COUNT YES; POSITIVE DIFFERENTIAL YES; POSITIVE MORPHOLOGY YES; Platelet Count 584 K/mm3 (150-450); RBC Distribution Width CV 17.7 % (11.6-14.6); RBC Distribution Width SD 55.2 fl (35.1-43.9); Red Blood Count 2.77 M/mm3 (4.2-5.4)
[2021-02-09 07:42] LABS: Differential Indicated SCAN CRITERIA MET
[2021-02-09 07:48] LABS: International Normalized Ratio 1.7; Prothrombin Time (Protime)PT. 19.3 SECONDS (11.7-14.9)
[2021-02-09 08:11] LABS: ALB/GLOB Ratio 0.2 RATIO (0.9-2.4); AST(SGOT) 85 U/L (15-37); Alanine Aminotransfer ALT/SGPT 37 U/L (13-56); Alkaline Phosphatase 755 U/L (45-117); Anion Gap 9 (5-15); BUN 56 mg/dL (7-18); BUN/Creat Ratio 24.6 RATIO (10-20); Calcium,Total 8.5 mg/dL (8.5-10.1); Chloride 100 mmol/L (98-107); Creatinine, Serum 2.28 mg/dL (0.55-1.02); EST Glomerular Filtration Rate 23 mL/min (>60); Est Glom Filt Rate - Afr Amer 28 mL/min (>60); Estimated Creatinine Clearance 21.53 ml/min; Globulin 6.2 g/dL (2.2-4.2); Glucose 79 mg/dL (74-106); Potassium 4.5 mmol/L (3.5-5.1); Protein, Total 7.2 g/dL (6.4-8.2); Sodium Level 135 mmol/L (136-145)
[2021-02-09 08:12] LABS: Platelet Estimate MOD INC (ADEQ)
[2021-02-09 08:27] LABS: Vancomycin, Random Level 29.8 ug/mL (0.0-15.0)
--- NOTE | 2021-02-09 09:00 | ECHOTEE_ITS ---
Reason For Study: Emboli, MRSA Bacteremia Medication TRESSA probe 6VT-D (SN [id number]) passed with minimal difficulty. No complications were noted. Cetacaine Topical [place] given X3 orally. [id number] gargled and swallowed. Versed 1 mg given slow IVP. Fentanyl 50 mcg given slow IVP. Performed a rapid injection of agitated mix of 9 cc saline and 1cc air to assess for atrial septal defect. Left Ventricle The estimated ejection fraction is 55 %. No regional wall motion abnormalities noted. Right Ventricle Normal RV size. Normal systolic function. Atria No doppler evidence for ASD. Bubble contrast study negative for right to left interatrial shunt. Normal left atrium. The right atrium is mildly enlarged. Mitral Valve There is no mitral valve stenosis. Mild-Moderate (1-2+) mitral valve insufficiency. Tricuspid Valve There is no tricuspid stenosis. Trivial tricuspid valve insufficiency. Unable to estimate RV systolic pressure due to insufficient tricuspid regurgitant envelope. Aortic Valve Trisinus/trileaflet aortic valve. There is no aortic stenosis. Mild (1+) aortic valve insufficiency. Pulmonic Valve The pulmonic valve is not well visualized. Vessels Normal aortic root. Mild atherosclerosis of the descending aorta. ECHO/Echo Transesophageal (TRESSA) Interpretation Summary The estimated ejection fraction is 55 %. Mild-Moderate (1-2+) mitral valve insufficiency. No definite vegetations noted. Mild (1+) aortic valve insufficiency. Ordering Physician: Lan Boyce Referring Physician: Aidan Roth Performed By: Fabián Montes De Oca RCS
--- NOTE | 2021-02-09 09:21 | PCM.RX.CS ---
Consult Pharmacy has been consulted to manage selected antiobiotic: Vancomycin Type of Consult: Follow-up Prior Doses of Antibiotics Received/Current Regimen: vanc dosing is on hold currently Labs: Sodium 135 mmol/L (136-145) L 02/09/21 07:25 Potassium 4.5 mmol/L (3.5-5.1) 02/09/21 07:25 Chloride 100 mmol/L (98-107) 02/09/21 07:25 Carbon Dioxide 26.0 mmol/L (21.0-32.0) 02/09/21 07:25 Anion Gap 9 (5-15) 02/09/21 07:25 BUN 56 mg/dL (7-18) H 02/09/21 07:25 Creatinine 2.28 mg/dL (0.55-1.02) H 02/09/21 07:25 Est GFR (MDRD) Af Amer 28 mL/min (>60) L 02/09/21 07:25 Est GFR (MDRD) Non-Af 23 mL/min (>60) L 02/09/21 07:25 BUN/Creatinine Ratio 24.6 RATIO (10-20) H 02/09/21 07:25 Glucose 79 mg/dL (74-106) 02/09/21 07:25 Vancomycin Trough 34.1 ug/mL (5.0-15.0) H 02/08/21 15:53 Random Vancomycin 29.8 ug/mL (0.0-15.0) H 02/09/21 07:25 Microbiology: Microbiology 02/07/21 14:00 Blood Culture (Wb) - Right Hand Blood Culture - Preliminary 02/07/21 02:00 Interface Orders SARS-CoV-2 Antigen (Rapid) - Final Weight used for dosin.9 kg Estimated Creatinine Clearance: 37 ml/min Goal Trough: 15-20 mcg/mL Pharmacy Plan for Drug Dosing: The vanc random level drawn at 0725 today was 29.8. This is still above the goal of 15-20 so will continue to hold further dosing at this time. Repeat vanc random level tomorrow morning. Can resume dosing if that level is <20. The patient's CrCl of 37ml/min was calculated using an adjusted body weight of 88kg. Pharmacy Service will continue to monitor and adjust dosing as required. Follow-Up Labs: Trough Vancomycin - random level Labs to be done on [date and time ordered]: 02/10/21 0600
[2021-02-09 11:41] LABS: Bedside Glucose 64 mg/dL (70-110)
--- NOTE | 2021-02-09 11:53 | NURSING ---
bs lower from previous. pt alert and awake. moist rattle to upper ant lungsounds. pt sat up and encouraged and did some coughing and deep breathing exercises and pt cleared. o2 on at 2l d/t drowsiness. oj given and pt did fine with no choking. will recheck in 45min.
[2021-02-09 12:30] LABS: Bedside Glucose 71 mg/dL (70-110)
--- NOTE | 2021-02-09 13:55 | PN.HOSP_ITS ---
Documented by User: Olinda Kelley NP, DIALYSIS TECHNICIAN-C 02/09/21 14:08 Subjective Subjective Patient seen and examined. Reports intermittent shortness of breath. Underwent TRESSA which demonstrated no vegetations. She denies fever, chills. Denies other symptoms or complaints. Objective Data Objective Data Vital Signs: Vital Signs Temp Pulse Resp BP Pulse Ox 97.8 F 81 12 131/79 H 100 02/09/21 11:10 02/09/21 11:26 02/09/21 11:26 02/09/21 11:26 02/09/21 11:26 Oxygen Flow Rate (L/min) 2 Oxygen Delivery Method Nasal Cannula Weight: 319 lb 7.197 oz Body Mass Index (BMI) 58.4 Intake & Output: Intake and Output for Last 24 Hours 02/07/21 02/08/21 02/09/21 23:59 23:59 23:59 Intake Total 2700 / 2700 1790 / 1790 Output Total 1250 / 1250 350 / 550 200 / 200 Balance 1450 / 1450 1440 / 1240 -200 / -200 Lab / Micro Data Result Diagrams: 02/09/21 07:25 02/09/21 07:25 Labs: Laboratory Results - last 24 hr 02/08/21 05:30: Iron 31 L, TIBC 205 L, Iron Saturation 15.1, Folate 5.90 02/08/21 15:53: Vancomycin Trough 34.1 H 02/08/21 15:53: Vitamin B12 > 2000 H 02/08/21 16:34: POC Glucose 90 02/08/21 20:34: POC Glucose 84 02/09/21 06:33: POC Glucose 72 02/09/21 07:25: PT 19.3 H, INR 1.7 02/09/21 07:25: WBC 11.0, RBC 2.77 L, Hgb 8.0 L, Hct 24.2 L, MCV 87.4, MCH 28.9, MCHC 33.1, RDW Std Deviation 55.2 H, RDW Coeff of Sherine 17.7 H, Plt Count 584 H, MPV 10.2, Immature Gran % (Auto) 1.600 H, Neut % (Auto) 86.2 H, Lymph % (Auto) 4.6 L, [place] % (Auto) 2.1, Eos % (Auto) 5.1 H, Baso % (Auto) 0.4, Absolute Neuts (auto) 9.5 H, Absolute Lymphs (auto) 0.51 L, Nucleated RBC % 9.5 H, Diff Path Review May foll, Platelet Estimate MOD INC 02/09/21 07:25: Sodium 135 L, Potassium 4.5, Chloride 100, Carbon Dioxide 26.0, Anion Gap 9, BUN 56 H, Creatinine 2.28 H, Estim Creat Clear Calc 21.53, Est GFR (MDRD) Af Amer 28 L, Est GFR (MDRD) Non-Af 23 L, BUN/Creatinine Ratio 24.6 H, Glucose 79, Calcium 8.5, Total Bilirubin 2.00 H, AST 85 H, ALT 37, Alkaline Phosphatase 755 H, Total Protein 7.2, Albumin 1.0 L, Globulin 6.2 H, Albumin/Globulin Ratio 0.2 L 02/09/21 07:25: Random Vancomycin 29.8 H 02/09/21 11:37: POC Glucose 64 L 02/09/21 12:23: POC Glucose 71 Micro: Microbiology 02/07/21 14:00 Blood Culture (Wb) - Right Hand Blood Culture - Preliminary 02/07/21 02:00 Interface Orders SARS-CoV-2 Antigen (Rapid) - Final Radiography Diagnostic Testing: Radiology Impression Chest CTA 02/07/21 15:49 IMPRESSION: No evidence of acute pulmonary emboli to segmental level. Cardiomegaly with interstitial edema and small bilateral pleural effusions. Electronically Signed: Parveen Rodriguez MD at 16:55 EDT Tel , Service support , Transesophageal Echocardiogram 02/09/21 09:00 Interpretation Summary The estimated ejection fraction is 55 %. Mild-Moderate (1-2+) mitral valve insufficiency. No definite vegetations noted. Mild (1+) aortic valve insufficiency. Ordering Physician: Lan Boyce Referring Physician: Aidan Roth Performed By: Fabián Montes De Oca RCS Rhythm Strip Rhythm Strip: Sinus Rhythm Rate: 83 Ectopy: None Physical Exam Const alert, oriented x3 and no apparent distress Orientation / Consciousness: awake, oriented to person, oriented to place and oriented to time HEENT normocephalic and moist oral mucous membranes Eyes PERRL, EOMs intact bilaterally and conjunctivae normal Neck no lymphadenopathy Resp clear to auscultation bilaterally Auscultation: diminished lung sounds Cardio regular rate, regular rhythm and no murmurs Peripheral Pulses: pulses 2+ throughout GI normal to inspection, nondistended, normoactive bowel sounds, non-tender and non-distended Extremity normal to inspection Skin no rashes or lesions noted Skin Narrative: Scattered scabbed areas on face and arms, picking behavior. Lesions: no lesions Rashes: no rashes Trauma: no lacerations or abrasions Neuro CN's II-XII intact bilaterally, no focal motor deficits, no sensory deficits noted and deep tendon reflexes 2+ bilaterally Psych mental status grossly normal and affect normal Assessment & Plan Assessment/Plan (1) Staphylococcus aureus bacteremia: PLAN: 1. MRSA bacteremia-ID following. On IV daptomycin. TRESSA without vegetation. Repeat blood cultures preliminary positive. CTA with no evidence of PE, cardiomegaly with interstitial edema and small bilateral pleural effusions. 2. Acute kidney injury-Carlos placed due to retention. Patient clinically appears to be mildly volume overloaded, will attempt Lasix. If no improvement, will obtain nephrology consult. Patient was on temporary dialysis during recent admission at [facility]. 3. Urinary retention-Carlos catheter in place. Will need voiding trial prior to discharge. If recurrent issue, will need urology consult. 4. History of DVT? Per documentation on Coumadin however not noted in external pharmacy or med list. Recent hospitalization at [facility] 2 weeks prior, no note of Coumadin on [place] medication list. INR 2.2 on admission which has since trended down. Will obtain lower extremity Doppler. CTA without PE. 5. Normocytic anemia-unclear chronicity. Transfuse for hemoglobin less than 7. Check stool for occult blood. Initiate PPI empirically. Iron studies consistent with iron deficiency. IV iron x3 doses then initiate oral regimen. 6. Type 2 diabetes [id number] with sliding scale insulin. Continue home insulin regimen. Lantus reduced due to hypoglycemia. 7. Rheumatoid arthritis-hold methotrexate. 8. Dermatitis-picking behavior on face. Topical Bactroban. Discouraged picking scabbed areas. 9. Intertrigo candidiasis-nystatin powder. 10. Hypertension-continue metoprolol. 11. Hyperlipidemia-continue statin. 12. GERD-continue PPI. 13. Depression/anxiety-on hydroxyzine, Effexor. 14. Chronic heart failure with preserved ejection fraction-recently initiated on Lasix due to exacerbation at [facility]. Echocardiogram with EF 55%. DVT prophylaxis-Lovenox subcu Discharge planning: Return to SNF for rehab when medically stable. This patient was seen by MOISES Maher under the supervision of Dr. Smith. Documented by User: Dr. Dusty Smith MD 02/09/21 14:58 Objective Data Lab / Micro Data Result Diagrams: 02/09/21 07:25 02/09/21 07:25 Assessment & Plan Addt'l Comments This patient was seen in conjunction with MOISES Maher . I have independently interviewed and examined the patient and reviewed pertinent historical, laboratory, and other data. Please refer to MOISES Maher note for details of this patient's presentation, findings, and recommendations. I have reviewed MOISES Maher note and concur with documented findings. In brief, patient i 55-year-old lady called back to the ED after blood cultures came back positive. Admitted to a monitored bed with consultation placed to infectious disease 02/09/2021. Patient underwent TRESSA which did not show any definitive evidence of vegetations. Repeat blood culture sent today. Patient remains on broad- spectrum antibiotic therapy ID on case subsequent recommendations refer to ID Physical Examination: GENERAL: cooperative HEENT: Atraumatic; EYES; Anicteric, Normal Conjunctiva NECK; supple, normal thyroid, RESPIRATORY: Diminished to auscultation CARDIOVASCULAR: Regular S1 S2, GI: soft, normoactive bowel sounds, : No Renal angle tenderness; EXTREMITIES: edema, no clubbing, MUSCULOSKELETAL: no muscle waisting NEURO: Awake; no lateralizing signs. SKIN: Multiple areas of excoriation patient apparently picks PSYCH; Flat affect Assessment: 1. MRSA bacteremia with high suspicion for endocarditis 2. Acute kidney injury 3. Diabetes mellitus type 2 4. Anemia of chronic disorder 5. Essential hypertension 6. Dyslipidemia 7. Obesity with BMI of 58.4 7. GERD 8. Depression with anxiety 9. Rheumatoid arthritis 10. DVT prophylaxis Recommendations: 1. I have discussed the results of my overview and impressions with the patient 2. Options for management were reviewed Charges/Coding Visit Charges Inpatient E&M: 23241 Subs Hosp L3
[2021-02-09] MEDS: NYSTATIN 500,000 UNIT/5 ML UDC 500000 UNIT PO ×3 (14:05→20:49)
[2021-02-09] MEDS: Pantoprazole Sodium 40 MG Tablet PO ×2 (14:06→20:48)
[2021-02-09] MEDS: Metoprolol Tartrate 25 MG Tablet 37.5 MG PO ×2 (14:07→20:48)
[2021-02-09] MEDS: Mupirocin Ointment 22gm Tube 1 APPLIC TOPICAL ×2 (14:08→20:48)
[2021-02-09 14:46] LABS: BNP,B-Type NATRIURETIC PEPTIDE 434.9 pg/mL (0-100)
--- NOTE | 2021-02-09 16:19 | PCM.PN.ID ---
Physical Exam Narrative Not feeling well, no fever. Having fatigue. Const alert General Appearance: cooperative Resp clear to auscultation bilaterally Cardio regular rate and regular rhythm GI normal to inspection, nondistended, normoactive bowel sounds Skin no rashes or lesions noted ID ID: Route of nutrition/ use of supplements: [] Nutritional Intake: [] IV Site: [] Carlos Catheter: [] Assessment & Plan Assessment/Plan (1) Staphylococcus aureus bacteremia: PLAN: MRSA bacteremia, suspicion for endocarditis given osler's nodes and splinter hemorrhage on hands. Repeat bcx. Has had covid shot, 1 of 2. TTE neg for veg. CTA and TRESSA neg for veg or embolic disease. Change vanc to dapto. Worsening RHODA. Will follow (2) RHODA (acute kidney injury):
[2021-02-09] MEDS: Furosemide 40 MG/4 ML Vial IV (16:26)
[2021-02-09 16:30] LABS: Bedside Glucose 117 mg/dL (70-110)
[2021-02-09 17:01] LABS: Urine Sodium 7 mmol/L (Not Establ.)
[2021-02-09] MEDS: oxyCODONE 5 MG Tablet PO (18:40)
[2021-02-09] MEDS: Senna/Docusate Sodium 1 Tablet 2 TABLET PO (18:40)
[2021-02-09] MEDS: Atorvastatin Calcium 40 MG Tablet PO (20:48)
[2021-02-09] MEDS: Enoxaparin 30 MG/0.3 ML Syringe SC (20:49)
[2021-02-09 21:35] LABS: Bedside Glucose 110 mg/dL (70-110)
[2021-02-10] VITALS (12 sets, daily range): BP systolic 106–126; BP diastolic 62–72; PULSE 68–99; RESP 16–18; TEMP 36.4–36.6; O2SAT 95–99
[2021-02-10] MEDS: Nystatin Powder 15gm Bottle 1 APPLIC TOPICAL ×3 (05:42→22:34)
[2021-02-10 06:21] LABS: Bedside Glucose 84 mg/dL (70-110)
[2021-02-10 06:34] LABS: Absolute Lymphocyte Count 0.57 X10^3/uL (0.83-4.51); Absolute Neutrophil Count 14.9 X10^3/uL (2.0-7.7); Basophil# 0.05 X10^3/uL; Basophil% 0.3 % (0-1); Eosinophil# 0.65 X10^3/uL; Eosinophils% 3.8 % (0-5); Hematocrit 24.5 % (37-47); Lymphocyte # 0.57 X10^3/ul (0.83-4.51); Lymphocyte % 3.4 % (19-41); Mean Corp Hgb Conc 32.7 g/dL (32-36); Mean Corpuscular Hgb 28.6 pg (27.0-32.0); Mean Corpuscular Volume 87.5 fL (81-99); Mean Platelet Vol. 10.4 fl (6.2-12.0); Monocyte# 0.37 X10^3/uL; Monocyte% 2.2 % (0-10); NRBC Flagged by Analyzer 8.3 % (0-5); Neutrophil # 14.89 X10^3/uL (2.7-7.7); Neutrophil % 88.2 % (47-70); POSITIVE COUNT YES; POSITIVE DIFFERENTIAL YES; POSITIVE MORPHOLOGY YES; Platelet Count 531 K/mm3 (150-450); RBC Distribution Width CV 18.4 % (11.6-14.6); RBC Distribution Width SD 56.6 fl (35.1-43.9); White Blood Count 16.9 K/mm3 (4.4-11.0)
[2021-02-10 06:41] LABS: Differential Indicated SCAN CRITERIA MET
[2021-02-10 06:47] LABS: International Normalized Ratio 1.8
[2021-02-10] MEDS: oxyCODONE 5 MG Tablet PO ×3 (06:54→23:45)
[2021-02-10 06:58] LABS: Vancomycin, Random Level 26.2 ug/mL (0.0-15.0)
[2021-02-10 07:22] LABS: ALB/GLOB Ratio 0.1 RATIO (0.9-2.4); AST(SGOT) 114 U/L (15-37); Alanine Aminotransfer ALT/SGPT 48 U/L (13-56); Albumin, Serum 0.9 g/dL (3.2-5.0); Alkaline Phosphatase 757 U/L (45-117); Anion Gap 10 (5-15); BUN 62 mg/dL (7-18); BUN/Creat Ratio 24.3 RATIO (10-20); Calcium,Total 8.6 mg/dL (8.5-10.1); Chloride 100 mmol/L (98-107); Creatinine, Serum 2.55 mg/dL (0.55-1.02); EST Glomerular Filtration Rate 21 mL/min (>60); Est Glom Filt Rate - Afr Amer 25 mL/min (>60); Estimated Creatinine Clearance 19.25 ml/min; Globulin 6.1 g/dL (2.2-4.2); Glucose 88 mg/dL (74-106); Potassium 4.4 mmol/L (3.5-5.1); Sodium Level 134 mmol/L (136-145)
[2021-02-10] MEDS: Metoprolol Tartrate 25 MG Tablet 37.5 MG PO ×2 (10:09→23:36)
[2021-02-10] MEDS: Furosemide 40 MG/4 ML Vial IV ×2 (10:09→17:57)
[2021-02-10] MEDS: Mupirocin Ointment 22gm Tube 1 APPLIC TOPICAL ×2 (10:10→23:37)
[2021-02-10] MEDS: Enoxaparin 30 MG/0.3 ML Syringe SC ×2 (10:10→22:33)
[2021-02-10] MEDS: Pantoprazole Sodium 40 MG Tablet PO ×2 (10:10→22:35)
[2021-02-10] MEDS: NYSTATIN 500,000 UNIT/5 ML UDC 500000 UNIT PO ×4 (10:12→22:35)
--- NOTE | 2021-02-10 11:46 | PN.HOSP_ITS ---
Documented by User: Olinda Kelley NP, RIFFLER TENDER-C 02/10/21 12:04 Subjective Subjective Patient seen and examined. States she is tired and just wants to rest today. Denies fever, chills. Denies further shortness of breath. Objective Data Objective Data Vital Signs: Vital Signs Temp Pulse Resp BP Pulse Ox 97.5 F L 99 18 110/72 99 02/10/21 10:01 02/10/21 10:09 02/10/21 10:01 02/10/21 10:01 02/10/21 10:01 Oxygen Flow Rate (L/min) 2 Oxygen Delivery Method Nasal Cannula Weight: 319 lb 7.197 oz Body Mass Index (BMI) 58.4 Intake & Output: Intake and Output for Last 24 Hours 02/08/21 02/09/21 02/10/21 23:59 23:59 23:59 Intake Total 1790 / 1790 700 / 700 Output Total 350 / 550 520 / 720 200 / 200 Balance 1440 / 1240 180 / -20 -200 / -200 Lab / Micro Data Result Diagrams: 02/10/21 05:54 02/10/21 05:54 Labs: Laboratory Results - last 24 hr 02/09/21 07:25: B-Natriuretic Peptide 434.9 H 02/09/21 12:23: POC Glucose 71 02/09/21 15:10: Ur Random Sodium 7, Urine Creatinine 97.70 02/09/21 16:26: POC Glucose 117 H 02/09/21 20:44: POC Glucose 110 02/10/21 05:54: PT 20.0 H, INR 1.8 02/10/21 05:54: WBC 16.9 H, RBC 2.80 L, Hgb 8.0 L, Hct 24.5 L, MCV 87.5, MCH 28.6, MCHC 32.7, RDW Std Deviation 56.6 H, RDW Coeff of Sherine 18.4 H, Plt Count 5 31 H, MPV 10.4, Immature Gran % (Auto) 2.100 H, Neut % (Auto) 88.2 H, Lymph % (Auto) 3.4 L, [place] % (Auto) 2.2, Eos % (Auto) 3.8, Baso % (Auto) 0.3, Absolute Neuts (auto) 14.9 H, Absolute Lymphs (auto) 0.57 L, Nucleated RBC % 8.3 H 02/10/21 05:54: Sodium 134 L, Potassium 4.4, Chloride 100, Carbon Dioxide 24.0, Anion Gap 10, BUN 62 H, Creatinine 2.55 H, Estim Creat Clear Calc 19.25, Est GFR (MDRD) Af Amer 25 L, Est GFR (MDRD) Non-Af 21 L, BUN/Creatinine Ratio 24.3 H, Glucose 88, Calcium 8.6, Total Bilirubin 1.70 H, AST 114 H, ALT 48, Alkaline Phosphatase 757 H, Total Protein 7.0, Albumin 0.9 L, Globulin 6.1 H, Albumin/Globulin Ratio 0.1 L 02/10/21 05:54: Random Vancomycin 26.2 H 02/10/21 06:14: POC Glucose 84 Micro: Microbiology 02/07/21 14:00 Blood Culture (Wb) - Right Hand Blood Culture - Preliminary Meth. resistant Staph. aureus 02/08/21 10:15 Blood Culture (Wb) - Right Hand Blood Culture - Preliminary No growth in 48 hours. 02/07/21 02:00 Interface Orders SARS-CoV-2 Antigen (Rapid) - Final Rhythm Strip Rhythm Strip: Sinus Rhythm Rate: 83 Ectopy: None Physical Exam Const oriented x3 and no apparent distress Constitutional Narrative: Drowsy Orientation / Consciousness: oriented to person, oriented to place and oriented to time Nutritional Appearance: obese HEENT normocephalic Mouth: dry mucous membranes Eyes PERRL, EOMs intact bilaterally and conjunctivae normal Neck no lymphadenopathy Resp clear to auscultation bilaterally Auscultation: diminished lung sounds Cardio regular rate, regular rhythm and no murmurs Peripheral Pulses: pulses 2+ throughout GI normal to inspection, nondistended, normoactive bowel sounds, non-tender and non-distended Extremity normal to inspection Skin no rashes or lesions noted Skin Narrative: Scattered scabbed areas on face and arms, picking behavior. Lesions: no lesions Rashes: no rashes Trauma: no lacerations or abrasions Neuro CN's II-XII intact bilaterally, no focal motor deficits, no sensory deficits noted and deep tendon reflexes 2+ bilaterally Psych mental status grossly normal Mood & Affect: flat affect Assessment & Plan Assessment/Plan (1) Staphylococcus aureus bacteremia: PLAN: 1. MRSA bacteremia-ID following. On IV daptomycin. TRESSA without vegetation. Repeat blood culture 10 seven shows no growth, blood culture 02/09, 02/10 pending. CTA with no evidence of PE, cardiomegaly with interstitial edema and small bilateral pleural effusions. 2. Acute kidney injury-Carlos placed due to retention. Patient was on temporary dialysis during recent admission at [facility]. FENa 0.1%, pre-renal. Suspect cardiorenal as patient does appear consistent with fluid overload. Consult nephrology for further input. 3. Urinary retention-Carlos catheter in place. Will need voiding trial prior to discharge. If recurrent issue, will need urology consult. 4. Acute on Chronic heart failure with preserved ejection fraction-recently initiated on Lasix due to exacerbation at [facility]. Echocardiogram with EF 55%. CTA with small bilateral pleural effusions. BNP 434. IV Lasix. Strict I&O. Daily weight. 5. Normocytic anemia-unclear chronicity. Transfuse for hemoglobin less than 7. Check stool for occult blood. Initiate PPI empirically. Iron studies con sistent with iron deficiency. IV iron x3 doses then initiate oral regimen. 6. Type 2 diabetes [id number] with sliding scale insulin. Continue home insulin regimen. Lantus reduced due to hypoglycemia. 7. Rheumatoid arthritis-hold methotrexate. 8. Dermatitis-picking behavior on face. Topical Bactroban. Discouraged picking scabbed areas. 9. Intertrigo candidiasis-nystatin powder. 10. Hypertension-continue metoprolol. 11. Hyperlipidemia-continue statin. 12. GERD-continue PPI. 13. Depression/anxiety-on hydroxyzine, Effexor. 14. History of DVT? Per documentation on Coumadin however not noted in external pharmacy or med list. Recent hospitalization at [facility] 2 we eks prior, no note of Coumadin on [place] medication list. INR 2.2 on admission which has since trended down. CTA without PE. Patient had recent lower extremity Doppler 01/30/2021 that was negative for DVT. DVT prophylaxis-Lovenox subcu Discharge planning: Return to SNF for rehab when medically stable. This patient was seen by MOISES Maher under the supervision of Dr. Smith. Documented by User: Dr. Dusty Smith MD 02/10/21 12:19 Objective Data Lab / Micro Data Result Diagrams: 02/10/21 05:54 02/10/21 05:54 Assessment & Plan Addt'l Comments This patient was seen in conjunction with MOISES Maher . I have independently interviewed and examined the patient and reviewed pertinent historical, laboratory, and other data. Please refer to MOISES Maher note for details of this patient's presentation, findings, and recommendations. I have reviewed MOISES Maher note and concur with documented findings. In brief, patient i 55-year-old lady called back to the ED after blood cultures came back positive. Admitted to a monitored bed with consultation placed to infectious disease 02/09/2021. Patient underwent TRESSA which did not show any definitive evidence of vegetations. Repeat blood culture sent today. Patient remains on broad-spectru m antibiotic therapy ID on case subsequent recommendations refer to ID 02/10/2021; antibiotic therapy switched to daptomycin. Repeat cultures were sent the day prior Physical Examination: GENERAL: cooperative HEENT: Atraumatic; EYES; Anicteric, Normal Conjunctiva NECK; supple, normal thyroid, RESPIRATORY: Diminished to auscultation CARDIOVASCULAR: Regular S1 S2, GI: soft, normoactive bowel sounds, : No Renal angle tenderness; EXTREMITIES: edema, no clubbing, MUSCULOSKELETAL: no muscle waisting NEURO: Awake; no lateralizing signs. SKIN: Multiple areas of excoriation patient apparently picks PSYCH; Flat affect Assessment: 1. MRSA bacteremia with high suspicion for endocarditis 2. Acute kidney injury 3. Diabetes mellitus type 2 4. Anemia of chronic disorder 5. Essential hypertension 6. Dyslipidemia 7. Obesity with BMI of 58.4 7. GERD 8. Depression with anxiety 9. Rheumatoid arthritis 10. DVT prophylaxis Recommendations: 1. I have discussed the results of my overview and impressions with the patient 2. Options for management were reviewed Charges/Coding Visit Charges Inpatient E&M: 64951 Subs Hosp L2
[2021-02-10 12:41] LABS: Bedside Glucose 97 mg/dL (70-110)
--- NOTE | 2021-02-10 17:40 | CON.PCM.RE_ITS ---
Assessment & Plan Assessment/Plan (1) RHODA (acute kidney injury): PLAN: Acute renal failure. Baseline creatinine is around 1.1-1.2. Likely has some early CKD stage IIIa. Creatinine worsening. She had a CT contrast on admission to rule out PE She was on vancomycin for MRSA bacteremia. Currently switched to daptomycin. There were couple of levels which were on the higher side. Urine analysis shows large amount of protein, some red cells. Differential include ATN versus postinfectious glomerulonephritis. Send urine protein creatinine ratio Check C3 level Check urine sodium Will follow HPI Consult Data Date of Consult: 02/10/21 HPI Narrative HPI Narrative: IRWIN ORTEGA, is a 55 F who presents to the hospital with sepsis. Nephrology consulted for acute renal failure. She was recently admitted at [facility]. Discharged to a rehab and came back here with above complaints. Found to have MRSA bacteremia. TRESSA negative. Creatinine on admission was around 1.1-1.2. Now worsening. Has a Botello catheter. Draining dark-colored urine. Breathing is acceptable. She does have several skin lesions which apparently have been present for a long time. [facility] Medical History Anemia CHF (congestive heart failure) Chronic pain Depression Diabetes HTN (hypertension) Hyperlipidemia Morbid obesity Rheumatoid arthritis Home Medications atorvastatin 40 mg PO QHS 01/23/21 [History Last Taken Unknown] furosemide [Lasix] 40 mg PO DAILY 01/23/21 [History Last Taken Unknown] insulin glargine [Lantus Solostar U-100 Insulin] 30 unit SUBCUT QHS 01/23/21 [History Last Taken Unknown] insulin glargine [Lantus Solostar U-100 Insulin] 40 unit SUBCUT DAILY 01/23/21 [History Last Taken Unknown] insulin lispro [Humalog KwikPen Insulin] See Protocol SUBCUT TIDCM 01/23/21 [History Last Taken Unknown] losartan 50 mg PO DAILY 01/23/21 [History Last Taken Unknown] methotrexate sodium 20 mg PO QWEEK 01/23/21 [History Last Taken Unknown] metoprolol tartrate 37.5 mg PO BID 01/23/21 [History Last Taken Unknown] venlafaxine 75 mg PO DAILY 01/23/21 [History Last Taken Unknown] hydrocodone-acetaminophen 1 tab PO Q4H PRN PRN 2 Days #15 tablet 02/05/21 [Rx Last Taken Unknown] albuterol sulfate [ProAir HFA] 2 puff INHALATION Q6H PRN 02/07/21 [History Last Taken Unknown] doxycycline hyclate [Doxy-Caps] 100 mg PO BID 02/07/21 [History Last Taken Unknown] folic acid 1 mg PO DAILY 02/07/21 [History Last Taken Unknown] hydroxyzine HCl 50 mg PO TID 02/07/21 [History Last Taken Unknown] ibuprofen 400 mg PO Q8H PRN 02/07/21 [History Last Taken Unknown] nystatin 1 unit TID 02/07/21 [History Last Taken Unknown] omeprazole 20 mg PO DAILY 02/07/21 [History Last Taken Unknown] quzorzvri-[id number]-gkfornzxube 1 cap PO DAILY 02/07/21 [History Last Taken Unknown] venlafaxine [Effexor XR] 150 mg PO DAILY 02/07/21 [History Last Taken Unknown] Allergy/AdvReac Type Severity Reaction Status Date / Time codeine Allergy Other Verified 02/07/21 01:25 Family History Other Cancer Heart disease Hypertension Surgical History Stented coronary artery Social History Smoking Status: Never smoker ROS ROS Narrative Negative except above Physical Exam Narrative Alert awake oriented x 3 no obvious distress no pallor no icterus no JVD s1s2 no murmurs lungs clear abdomen soft no organomegaly + edema no cyanosis botello + Lab / Micro Data Result Diagrams: 02/10/21 05:54 02/10/21 05:54 Labs: Laboratory Results - last 24 hr 02/09/21 20:44: POC Glucose 110 02/10/21 05:54: PT 20.0 H, INR 1.8 02/10/21 05:54: WBC 16.9 H, RBC 2.80 L, Hgb 8.0 L, Hct 24.5 L, MCV 87.5, MCH 28.6, MCHC 32.7, RDW Std Deviation 56.6 H, RDW Coeff of Sherine 18.4 H, Plt Count 5 31 H, MPV 10.4, Immature Gran % (Auto) 2.100 H, Neut % (Auto) 88.2 H, Lymph % (Auto) 3.4 L, [place] % (Auto) 2.2, Eos % (Auto) 3.8, Baso % (Auto) 0.3, Absolute Neuts (auto) 14.9 H, Absolute Lymphs (auto) 0.57 L, Nucleated RBC % 8.3 H 02/10/21 05:54: Sodium 134 L, Potassium 4.4, Chloride 100, Carbon Dioxide 24.0, Anion Gap 10, BUN 62 H, Creatinine 2.55 H, Estim Creat Clear Calc 19.25, Est GFR (MDRD) Af Amer 25 L, Est GFR (MDRD) Non-Af 21 L, BUN/Creatinine Ratio 24.3 H, Glucose 88, Calcium 8.6, Total Bilirubin 1.70 H, AST 114 H, ALT 48, Alkaline Phosphatase 757 H, Total Protein 7.0, Albumin 0.9 L, Globulin 6.1 H, Albumin/Globulin Ratio 0.1 L 02/10/21 05:54: Random Vancomycin 26.2 H 02/10/21 06:14: POC Glucose 84 02/10/21 12:34: POC Glucose 97 Micro: Microbiology 02/07/21 14:00 Blood Culture (Wb) - Right Hand Blood Culture - Preliminary Meth. resistant Staph. aureus 02/08/21 10:15 Blood Culture (Wb) - Right Hand Blood Culture - Preliminary No growth in 48 hours. Rhythm Strip Rhythm Strip: Sinus Rhythm Rate: 83 Ectopy: None
[2021-02-10 18:06] LABS: Bedside Glucose 63 mg/dL (70-110)
[2021-02-10] MEDS: Atorvastatin Calcium 40 MG Tablet PO (22:33)
[2021-02-10 23:46] LABS: Bedside Glucose 59 mg/dL (70-110)
[2021-02-11] VITALS (9 sets, daily range): BP systolic 122–138; BP diastolic 62–65; PULSE 67–74; RESP 16–18; TEMP 36.3–36.6; O2SAT 94–98
[2021-02-11 00:56] LABS: Bedside Glucose 84 mg/dL (70-110)
[2021-02-11 06:31] LABS: Absolute Lymphocyte Count 0.69 X10^3/uL (0.83-4.51); Basophil# 0.07 X10^3/uL; Basophil% 0.3 % (0-1); Eosinophil# 1.01 X10^3/uL; Hematocrit 25.5 % (37-47); Hemoglobin 8.3 g/dL (12.0-15.0); Lymphocyte # 0.69 X10^3/ul (0.83-4.51); Lymphocyte % 3.4 % (19-41); Mean Corp Hgb Conc 32.5 g/dL (32-36); Mean Corpuscular Hgb 28.7 pg (27.0-32.0); Mean Corpuscular Volume 88.2 fL (81-99); Mean Platelet Vol. 10.9 fl (6.2-12.0); Monocyte# 0.66 X10^3/uL; Monocyte% 3.3 % (0-10); NRBC Flagged by Analyzer 10.5 % (0-5); Neutrophil # 17.04 X10^3/uL (2.7-7.7); POSITIVE COUNT YES; POSITIVE MORPHOLOGY YES; Platelet Count 504 K/mm3 (150-450); RBC Distribution Width CV 18.6 % (11.6-14.6); RBC Distribution Width SD 57.1 fl (35.1-43.9); Red Blood Count 2.89 M/mm3 (4.2-5.4); White Blood Count 20.3 K/mm3 (4.4-11.0)
[2021-02-11 06:36] LABS: Bedside Glucose 74 mg/dL (70-110)
[2021-02-11 06:37] LABS: International Normalized Ratio 1.6; Prothrombin Time (Protime)PT. 18.4 SECONDS (11.7-14.9)
[2021-02-11] MEDS: Nystatin Powder 15gm Bottle 1 APPLIC TOPICAL ×3 (06:40→21:39)
[2021-02-11 06:50] LABS: Anion Gap 9 (5-15); BUN 64 mg/dL (7-18); BUN/Creat Ratio 24.2 RATIO (10-20); Calcium,Total 8.6 mg/dL (8.5-10.1); Chloride 101 mmol/L (98-107); Creatinine, Serum 2.64 mg/dL (0.55-1.02); EST Glomerular Filtration Rate 20 mL/min (>60); Est Glom Filt Rate - Afr Amer 24 mL/min (>60); Glucose 73 mg/dL (74-106); Potassium 4.5 mmol/L (3.5-5.1); Sodium Level 133 mmol/L (136-145)
[2021-02-11 07:13] LABS: Differential Indicated SCAN CRITERIA MET
[2021-02-11 07:20] LABS: Differential Comment SCANNED
[2021-02-11 07:21] LABS: Anisocytosis 2+; Hypochromasia 3+; Platelet Estimate MOD INC (ADEQ); Polychromasia 1+; Target Cells 1+
[2021-02-11] MEDS: Mupirocin Ointment 22gm Tube 1 APPLIC TOPICAL ×2 (09:22→21:39)
[2021-02-11] MEDS: 0.9% Normal Saline 1,000 ML 75 ML IV (09:22)
[2021-02-11] MEDS: Enoxaparin 30 MG/0.3 ML Syringe SC ×2 (09:23→21:38)
[2021-02-11] MEDS: Pantoprazole Sodium 40 MG Tablet PO ×2 (09:23→21:38)
[2021-02-11] MEDS: Metoprolol Tartrate 25 MG Tablet 37.5 MG PO ×2 (09:23→21:38)
[2021-02-11] MEDS: NYSTATIN 500,000 UNIT/5 ML UDC 500000 UNIT PO ×4 (09:24→21:38)
[2021-02-11] MEDS: oxyCODONE 5 MG Tablet PO ×3 (09:42→21:42)
[2021-02-11 10:59] LABS: Urine Sodium 13 mmol/L (Not Establ.)
[2021-02-11 11:06] LABS: Protein, Urine (Random) 306.4 mg/dL (<11.9); Protein:Creat Ratio 3389 mg/g CRE (0-200)
--- NOTE | 2021-02-11 12:32 | PCM.PN.HOSP ---
Documented by User: Olinda Kelley NP, C[employer]S [employer]ORDER PROTECTION OFFICER-C 02/11/21 12:39 Subjective Subjective Patient seen and examined. More alert today. Reports intermittent shortness of breath. Denies fever, chills. Denies other symptoms or complaints. Objective Data Objective Data Vital Signs: Vital Signs Temp Pulse Resp BP Pulse Ox 97.4 F L 72 18 122/62 H 98 02/11/21 09:16 02/11/21 09:23 02/11/21 09:16 02/11/21 09:16 02/11/21 09:16 Oxygen Flow Rate (L/min) 1.5 Oxygen Delivery Method Nasal Cannula Weight: 319 lb 7.197 oz Body Mass Index (BMI) 58.4 Intake & Output: Intake and Output for Last 24 Hours 02/09/21 02/10/21 02/11/21 23:59 23:59 23:59 Intake Total 700 / 700 270 / 270 441.25 / 441.25 Output Total 520 / 720 550 / 550 400 / 400 Balance 180 / -20 -280 / -280 41.25 / 41.25 Lab / Micro Data Result Diagrams: 02/11/21 05:40 02/11/21 05:40 Labs: Laboratory Results - last 24 hr 02/10/21 12:34: POC Glucose 97 02/10/21 17:53: POC Glucose 63 L 02/10/21 18:04: U Random Total Protein 306.4 H, Urine Creatinine 90.40, Protein/Creatinin Ratio 3389 H 02/10/21 18:04: Ur Random Sodium 13 02/10/21 22:30: POC Glucose 59 L 02/11/21 00:51: POC Glucose 84 02/11/21 05:40: PT 18.4 H, INR 1.6 02/11/21 05:40: WBC 20.3 H, RBC 2.89 L, Hgb 8.3 L, Hct 25.5 L, MCV 88.2, MCH 28.7, MCHC 32.5, RDW Std Deviation 57.1 H, RDW Coeff of Sherine 18.6 H, Plt Count 504 H, MPV 10.9, Immature Gran % (Auto) 4.000 H, Neut % (Auto) 84.0 H, Lymph % (Auto) 3.4 L, Kay % (Auto) 3.3, Eos % (Auto) 5.0, Baso % (Auto) 0.3, Absolute Neuts (auto) 17.0 H, Absolute Lymphs (auto) 0.69 L, Nucleated RBC % 10.5 H, Differential Comment SCANNED, Diff Path Review May foll, Platelet Estimate MOD INC, Polychromasia 1+, Hypochromasia 3+, Anisocytosis 2+, Target Cells 1+ 02/11/21 05:40: Sodium 133 L, Potassium 4.5, Chloride 101, Carbon Dioxide 23.0, Anion Gap 9, BUN 64 H, Creatinine 2.64 H, Estim Creat Clear Calc 18.60, Est GFR (MDRD) Af Amer 24 L, Est GFR (MDRD) Non-Af 20 L, BUN/Creatinine Ratio 24.2 H, Glucose 73 L, Calcium 8.6 02/11/21 06:32: POC Glucose 74 Micro: Microbiology 02/07/21 14:00 Blood Culture (Wb) - Right Hand Blood Culture - Preliminary Meth. resistant Staph. aureus 02/08/21 10:15 Blood Culture (Wb) - Right Hand Blood Culture - Preliminary No growth in 48 hours. 02/07/21 02:00 Interface Orders SARS-CoV-2 Antigen (Rapid) - Final Rhythm Strip Rhythm Strip: Sinus Rhythm Rate: 83 Ectopy: None Physical Exam Const alert, oriented x3 and no apparent distress Orientation / Consciousness: awake, oriented to person, oriented to place and oriented to time Nutritional Appearance: obese HEENT normocephalic Mouth: dry mucous membranes Eyes PERRL, EOMs intact bilaterally and conjunctivae normal Neck no lymphadenopathy Resp clear to auscultation bilaterally Auscultation: diminished lung sounds Cardio regular rate, regular rhythm and no murmurs Peripheral Pulses: pulses 2+ throughout GI normal to inspection, nondistended, normoactive bowel sounds, non-tender and non-distended Extremity normal to inspection General Extremity: edema bilateral lower extremity Details: mild Skin no rashes or lesions noted Skin Narrative: Scattered scabbed areas on face and arms, picking behavior. Lesions: no lesions Rashes: no rashes Trauma: no lacerations or abrasions Neuro CN's II-XII intact bilaterally, no focal motor deficits, no sensory deficits noted and deep tendon reflexes 2+ bilaterally Psych mental status grossly normal Mood & Affect: flat affect Assessment & Plan Assessment/Plan (1) Staphylococcus aureus bacteremia: PLAN: 1. MRSA bacteremia-ID following. On IV daptomycin. TRESSA without vegetation. Repeat blood culture 10 seven shows no growth, blood culture 02/09, 02/10 pending. CTA with no evidence of PE, cardiomegaly with interstitial edema and small bilateral pleural effusions. 2. Acute kidney injury-Carlos placed due to retention. Patient was on temporary dialysis during recent admission at [facility]. FENa 0.1%, pre-renal. Nephrology consulted. Possibly ATN versus postinfectious glomerulonephritis. Further Lasix discontinued. Trend BMP. 3. Urinary retention-Carlos catheter in place. Will need voiding trial prior to discharge. If recurrent issue, will need urology consult. 4. Acute on Chronic heart failure with preserved ejection fraction-recently initiated on Lasix due to exacerbation at [facility]. Echocardiogram with EF 55%. CTA with small bilateral pleural effusions. BNP 434. Further Lasix discontinued due to increasing creatinine. Strict I&O. Daily weight. 5. Normocytic anemia-appears chronic however unknown baseline. Transfuse for hemoglobin less than 7. Check stool for occult blood. Initiate PPI empirically. Iron studies consistent with iron deficiency. IV iron x3 doses then initiate oral regimen. 6. Type 2 diabetes [id number] with sliding scale insulin. Patient has had poor oral intake and episodes of hypoglycemia. Reduce long-acting to 10 units daily. 7. Rheumatoid arthritis-hold methotrexate. 8. Dermatitis-picking behavior on face. Topical Bactroban. Discouraged picking scabbed areas. 9. Intertrigo candidiasis-nystatin powder. 10. Hypertension-continue metoprolol. 11. Hyperlipidemia-continue statin. 12. GERD-continue PPI. 13. Depression/anxiety-on hydroxyzine, Effexor. 14. History of DVT? Per documentation on Coumadin however not noted in external pharmacy or med list. Recent hospitalization at [facility] 2 weeks prior, no note of Coumadin on [place] medication list. INR 2.2 on admission which has since trended down. CTA without PE. Patient had recent lower extremity Doppler 01/30/2021 that was negative for DVT. DVT prophylaxis-Lovenox subcu Discharge planning: Return to SNF for rehab when medically stable. This patient was seen by MOISES Maher under the supervision of Dr. Smith. Documented by User: Dr. Dusty Smith MD 02/11/21 13:37 Objective Data Lab / Micro Data Result Diagrams: 02/11/21 05:40 02/11/21 05:40 Assessment & Plan Addt'l Comments This patient was seen in conjunction with MOISES Maher . I have independently interviewed and examined the patient and reviewed pertinent historical, laboratory, and other data. Please refer to MOISES Maher note for details of this patient's presentation, findings, and recommendations. I have reviewed MOISES Maher note and concur with documented findings. In brief, patient i 55-year-old lady called back to the ED after blood cultures came back positive. Admitted to a monitored bed with consultation placed to infectious disease 02/09/2021. Patient underwent TRESSA which did not show any definitive evidence of vegetations. Repeat blood culture sent today. Patient remains on broad-spectrum antibiotic therapy ID on case subsequent recommendations refer to ID 02/10/2021; antibiotic therapy switched to daptomycin. Repeat cultures were sent the day prior 02/11/2021; repeat blood cultures from 02/08/2021 so far negative. Data from 02/09 and 02/10 still pending. Patient still remains on broad-spectrum antibiotic Physical Examination: GENERAL: cooperative HEENT: Atraumatic; EYES; Anicteric, Normal Conjunctiva NECK; supple, normal thyroid, RESPIRATORY: Diminished to auscultation CARDIOVASCULAR: Regular S1 S2, GI: soft, normoactive bowel sounds, : No Renal angle tenderness; EXTREMITIES: edema, no clubbing, MUSCULOSKELETAL: no muscle waisting NEURO: Awake; no lateralizing signs. SKIN: Multiple areas of excoriation patient apparently picks PSYCH; Flat affect Assessment: 1. MRSA bacteremia with high suspicion for endocarditis 2. Acute kidney injury 3. Diabetes mellitus type 2 4. Anemia of chronic disorder 5. Essential hypertension 6. Dyslipidemia 7. Obesity with BMI of 58.4 7. GERD 8. Depression with anxiety 9. Rheumatoid arthritis 10. DVT prophylaxis Recommendations: 1. I have discussed the results of my overview and impressions with the patient 2. Options for management were reviewed Charges/Coding Visit Charges Inpatient E&M: 60193 Subs Hosp L2
--- NOTE | 2021-02-11 16:35 | PN.RENAL_ITS ---
Subjective Subjective She says breathing is okay. Edema is about the same. Objective Data Objective Data Vital Signs: Vital Signs Temp Pulse Resp BP Pulse Ox 97.4 F L 68 18 122/62 H 98 02/11/21 09:16 02/11/21 15:00 02/11/21 09:16 02/11/21 09:16 02/11/21 09:16 Oxygen Flow Rate (L/min) 1.5 Oxygen Delivery Method Nasal Cannula Weight: 144.9 kg Body Mass Index (BMI) 58.4 Intake & Output: Intake and Output for Last 24 Hours 02/09/21 02/10/21 02/11/21 23:59 23:59 23:59 Intake Total 700 / 700 270 / 270 632.50 / 632.50 Output Total 520 / 720 550 / 550 600 / 600 Balance 180 / -20 -280 / -280 32.50 / 32.50 Lab / Micro Data Result Diagrams: 02/11/21 05:40 02/11/21 05:40 Labs: Laboratory Results - last 24 hr 02/10/21 17:53: POC Glucose 63 L 02/10/21 18:04: U Random Total Protein 306.4 H, Urine Creatinine 90.40, Protein/Creatinin Ratio 3389 H 02/10/21 18:04: Ur Random Sodium 13 02/10/21 22:30: POC Glucose 59 L 02/11/21 00:51: POC Glucose 84 02/11/21 05:40: PT 18.4 H, INR 1.6 02/11/21 05:40: WBC 20.3 H, RBC 2.89 L, Hgb 8.3 L, Hct 25.5 L, MCV 88.2, MCH 28.7, MCHC 32.5, RDW Std Deviation 57.1 H, RDW Coeff of Sherine 18.6 H, Plt Count 504 H, MPV 10.9, Immature Gran % (Auto) 4.000 H, Neut % (Auto) 84.0 H, Lymph % (Auto) 3.4 L, [place] % (Auto) 3.3, Eos % (Auto) 5.0, Baso % (Auto) 0.3, Absolute Neuts (auto) 17.0 H, Absolute Lymphs (auto) 0.69 L, Nucleated RBC % 10.5 H, Differential Comment SCANNED, Diff Path Review May foll, Platelet Estimate MOD INC, Polychromasia 1+, Hypochromasia 3+, Anisocytosis 2+, Target Cells 1+ 02/11/21 05:40: Sodium 133 L, Potassium 4.5, Chloride 101, Carbon Dioxide 23.0, Anion Gap 9, BUN 64 H, Creatinine 2.64 H, Estim Creat Clear Calc 18.60, Est GFR (MDRD) Af Amer 24 L, Est GFR (MDRD) Non-Af 20 L, BUN/Creatinine Ratio 24.2 H, Glucose 73 L, Calcium 8.6 02/11/21 06:32: POC Glucose 74 Micro: Microbiology 02/09/21 15:20 Blood Culture (Wb) - Right Hand Blood Culture - Preliminary No growth in 48 hours. 02/07/21 14:00 Blood Culture (Wb) - Right Hand Blood Culture - Preliminary Meth. resistant Staph. aureus 02/08/21 10:15 Blood Culture (Wb) - Right Hand Blood Culture - Preliminary No growth in 48 hours. 02/07/21 02:00 Interface Orders SARS-CoV-2 Antigen (Rapid) - Final Rhythm Strip Rhythm Strip: Sinus Rhythm Rate: 83 Ectopy: None Physical Exam Narrative Alert awake oriented x 3 no obvious distress no pallor no icterus no JVD s1s2 no murmurs lungs clear abdomen soft no organomegaly +++ edema no cyanosis botello + Assessment & Plan Assessment/Plan (1) RHODA (acute kidney injury): PLAN: Acute renal failure. Baseline creatinine is around 1.1-1.2. Likely has some early CKD stage IIIa. Creatinine worsening. She had a CT contrast on admission to rule out PE She was on vancomycin for MRSA bacteremia. Currently switched to daptomycin. There were couple of levels which were on the higher side. Urine analysis shows large amount of protein, some red cells. Differential include ATN versus postinfectious glomerulonephritis. Urine sodium is low, differential for this includes prerenal, cardiorenal, contrast nephropathy Urine protein creatinine ratio is about 3 g, possible this is chronic C3 level is pending White cell count is increasing. No fevers. Has systemic edema which is not new. Hold Lasix for today. I did give her some fluids back starting this morning. We will stop now due to massive edema. Repeat BMP tomorrow. If this is contrast nephropathy alone, she should recover over the next 1 to 2 days. Questions answered
[2021-02-11 16:46] LABS: Bedside Glucose 94 mg/dL (70-110)
[2021-02-11 16:46] LABS: Bedside Glucose 135 mg/dL (70-110)
[2021-02-11] MEDS: Atorvastatin Calcium 40 MG Tablet PO (21:38)
[2021-02-11 21:46] LABS: Bedside Glucose 136 mg/dL (70-110)
[2021-02-12] VITALS (13 sets, daily range): BP systolic 114–133; BP diastolic 56–75; PULSE 67–81; RESP 14–20; TEMP 36.2–36.6; O2SAT 96–100
[2021-02-12] MEDS: Nystatin Powder 15gm Bottle 1 APPLIC TOPICAL ×3 (05:47→20:44)
[2021-02-12 06:45] LABS: Bedside Glucose 120 mg/dL (70-110)
[2021-02-12 07:30] LABS: Absolute Neutrophil Count 16.8 X10^3/uL (2.0-7.7); Basophil# 0.07 X10^3/uL; Basophil% 0.4 % (0-1); Eosinophil# 0.51 X10^3/uL; Eosinophils% 2.6 % (0-5); Hematocrit 25.9 % (37-47); Hemoglobin 8.3 g/dL (12.0-15.0); Lymphocyte % 1.5 % (19-41); Mean Corpuscular Hgb 28.5 pg (27.0-32.0); Mean Platelet Vol. 11.2 fl (6.2-12.0); Monocyte# 1.19 X10^3/uL; Monocyte% 6.1 % (0-10); NRBC Flagged by Analyzer 12.8 % (0-5); Neutrophil # 16.76 X10^3/uL (2.7-7.7); Neutrophil % 86.5 % (47-70); POSITIVE COUNT YES; POSITIVE DIFFERENTIAL YES; POSITIVE MORPHOLOGY YES; Platelet Count 514 K/mm3 (150-450); RBC Distribution Width SD 58.3 fl (35.1-43.9); Red Blood Count 2.91 M/mm3 (4.2-5.4); White Blood Count 19.4 K/mm3 (4.4-11.0)
[2021-02-12 07:58] LABS: Differential Indicated SCAN CRITERIA MET
[2021-02-12 08:00] LABS: International Normalized Ratio 1.7; Prothrombin Time (Protime)PT. 19.1 SECONDS (11.7-14.9)
[2021-02-12 08:01] LABS: Platelet Estimate MOD INC (ADEQ); Platelet Morphology LARGE
[2021-02-12 08:06] LABS: Anion Gap 14 (5-15); BUN 64 mg/dL (7-18); BUN/Creat Ratio 24.8 RATIO (10-20); Calcium,Total 8.8 mg/dL (8.5-10.1); Chloride 99 mmol/L (98-107); Creatinine, Serum 2.58 mg/dL (0.55-1.02); EST Glomerular Filtration Rate 20 mL/min (>60); Est Glom Filt Rate - Afr Amer 25 mL/min (>60); Estimated Creatinine Clearance 19.03 ml/min; Glucose 121 mg/dL (74-106); Potassium 4.4 mmol/L (3.5-5.1); Sodium Level 135 mmol/L (136-145)
[2021-02-12] MEDS: oxyCODONE 5 MG Tablet PO ×2 (08:39→20:51)
[2021-02-12] MEDS: Acetaminophen 325 MG Tablet 650 MG PO ×2 (08:40→20:51)
[2021-02-12] MEDS: Pantoprazole Sodium 40 MG Tablet PO ×2 (08:43→20:43)
[2021-02-12] MEDS: Metoprolol Tartrate 25 MG Tablet 37.5 MG PO ×2 (08:44→20:42)
[2021-02-12] MEDS: Enoxaparin 30 MG/0.3 ML Syringe SC ×2 (08:46→20:43)
[2021-02-12] MEDS: NYSTATIN 500,000 UNIT/5 ML UDC 500000 UNIT PO ×4 (08:48→20:43)
[2021-02-12] MEDS: Mupirocin Ointment 22gm Tube 1 APPLIC TOPICAL ×2 (08:49→20:43)
[2021-02-12 11:11] LABS: Bedside Glucose 136 mg/dL (70-110)
--- NOTE | 2021-02-12 11:18 | CASEMGMT ---
SW spoke w/SUPERVISOR STITCHING DEPARTMENT, pt may be ready in the next few days. SW called [facility], spoke w/admissions. Pt's insurance usually takes a couple of days to get precert, and once attained is good for 48 hours. FRANCESCA explained will fax over updates to start precert today. Updates faxed to [facility]. FRANCESCA will continue to follow. LYNNE Langston
[2021-02-12 12:50] LABS: Pathologist Review Reviewed
[2021-02-12 12:59] LABS: Pathologist Review Reviewed
[2021-02-12 13:08] LABS: CPK Total, Creatine Kinase 89 U/L (26-192)
[2021-02-12 13:19] LABS: Pathologist Review Reviewed
--- NOTE | 2021-02-12 13:54 | PN.HOSP_ITS ---
Documented by User: Olinda Kelley NP, BUS INSPECTOR-C 02/12/21 14:08 Subjective Subjective Patient seen and examined. Complains of generalized mouth and jaw discomfort and generalized body aches/myalgias. Denies shortness of breath. Denies fever, chills. Objective Data Objective Data Vital Signs: Vital Signs Temp Pulse Resp BP Pulse Ox 97.5 F L 74 16 123/56 H 100 02/12/21 08:26 02/12/21 09:35 02/12/21 08:26 02/12/21 08:26 02/12/21 08:26 Oxygen Flow Rate (L/min) 2 Oxygen Delivery Method Nasal Cannula Weight: 319 lb 7.197 oz Body Mass Index (BMI) 58.4 Intake & Output: Intake and Output for Last 24 Hours 02/10/21 02/11/21 02/12/21 23:59 23:59 23:59 Intake Total 270 / 270 902.50 / 1022.50 120 / 120 Output Total 550 / 550 800 / 1050 400 / 400 Balance -280 / -280 102.50 / -27.50 -280 / -280 Lab / Micro Data Result Diagrams: 02/13/21 06:40 02/13/21 06:40 Labs: Laboratory Results - last 24 hr 02/09/21 07:25: Diff Path Review Reviewed 02/11/21 05:40: Diff Path Review Reviewed 02/11/21 12:36: POC Glucose 94 02/11/21 16:42: POC Glucose 135 H 02/11/21 21:36: POC Glucose 136 H 02/12/21 06:15: PT 19.1 H, INR 1.7 02/12/21 06:15: WBC 19.4 H, RBC 2.91 L, Hgb 8.3 L, Hct 25.9 L, MCV 89.0, MCH 28.5, MCHC 32.0, RDW Std Deviation 58.3 H, RDW Coeff of Sherine 19.0 H, Plt Count 514 H, MPV 11.2, Immature Gran % (Auto) 2.900 H, Neut % (Auto) 86.5 H, Lymph % (Auto) 1.5 L, [place] % (Auto) 6.1, Eos % (Auto) 2.6, Baso % (Auto) 0.4, Absolute Neuts (auto) 16.8 H, Absolute Lymphs (auto) 0.30 L, Nucleated RBC % 12.8 H, Diff Path Review Reviewed, Platelet Estimate MOD INC, Plt Morphology Comment LARGE 02/12/21 06:15: Sodium 135 L, Potassium 4.4, Chloride 99, Carbon Dioxide 22.0, Anion Gap 14, BUN 64 H, Creatinine 2.58 H, Estim Creat Clear Calc 19.03, Est GFR (MDRD) Af Amer 25 L, Est GFR (MDRD) Non-Af 20 L, BUN/Creatinine Ratio 24.8 H, Glucose 121 H, Calcium 8.8 02/12/21 06:15: Total Creatine Kinase 89 02/12/21 06:29: POC Glucose 120 H 02/12/21 11:07: POC Glucose 136 H Micro: Microbiology 02/10/21 08:36 Blood Culture (Wb) - Right Hand Blood Culture - Preliminary No growth in 48 hours. 02/09/21 15:20 Blood Culture (Wb) - Right Hand Blood Culture - Preliminary No growth in 48 hours. 02/07/21 14:00 Blood Culture (Wb) - Right Hand Blood Culture - Preliminary Meth. resistant Staph. aureus 02/08/21 10:15 Blood Culture (Wb) - Right Hand Blood Culture - Preliminary No growth in 48 hours. 02/07/21 02:00 Interface Orders SARS-CoV-2 Antigen (Rapid) - Final Rhythm Strip Rhythm Strip: Sinus Rhythm Rate: 83 Ectopy: None Physical Exam Const oriented x3 and no apparent distress Constitutional Narrative: Drowsy Orientation / Consciousness: oriented to person, oriented to place and oriented to time Nutritional Appearance: obese HEENT normocephalic Mouth: dry mucous membranes Eyes PERRL, EOMs intact bilaterally and conjunctivae normal Neck no lymphadenopathy Resp clear to auscultation bilaterally Auscultation: diminished lung sounds Cardio regular rate, regular rhythm and no murmurs Peripheral Pulses: pulses 2+ throughout GI normal to inspection, nondistended, normoactive bowel sounds, non-tender and non-distended Extremity normal to inspection Skin no rashes or lesions noted Skin Narrative: Scattered scabbed areas on face and arms, picking behavior. Lesions: no lesions Rashes: no rashes Trauma: no lacerations or abrasions Neuro CN's II-XII intact bilaterally, no focal motor deficits, no sensory deficits noted and deep tendon reflexes 2+ bilaterally Psych mental status grossly normal Mood & Affect: flat affect Assessment & Plan Assessment/Plan (1) Staphylococcus aureus bacteremia: PLAN: 1. MRSA bacteremia-ID following. On IV daptomycin. TRESSA without vegetation. Repeats blood cultures 02/08 through 02/10 with no growth. CTA with no evidence of PE, cardiomegaly with interstitial edema and small bilateral pleural effusions. Further ongoing recommendations per ID. Patient reports myalgias, CK obtained due to being on daptomycin which was normal. 2. Acute kidney injury-Carlos placed due to retention. Patient was on temporary dialysis during recent admission at [facility]. FENa 0.1%, pre-renal. Nephrology consulted. Possibly ATN versus postinfectious glomerulonephritis. Further Lasix discontinued. Trend BMP. Creatinine slightly improved from prior. 3. Urinary retention-Carlos catheter in place. Will need voiding trial prior to discharge. If recurrent issue, will need urology consult. 4. Acute on Chronic heart failure with preserved ejection fraction-recently initiated on Lasix due to exacerbation at [facility]. Echocardiogram with EF 55%. CTA with small bilateral pleural effusions. BNP 434. Further Lasix discontinued due to increasing creatinine. Strict I&O. Daily weight. 5. Normocytic anemia-appears chronic however unknown baseline. Transfuse for hemoglobin less than 7. Check stool for occult blood. Initiate PPI empirically. Iron studies consistent with iron deficiency. IV iron x3 doses then initiate oral regimen. 6. Type 2 diabetes [id number] with sliding scale insulin. Patient has had poor oral intake and episodes of hypoglycemia. Reduce long-acting to 10 units daily. 7. Rheumatoid arthritis-hold methotrexate. 8. Dermatitis-picking behavior on face. Topical Bactroban. Discouraged picking scabbed areas. 9. Intertrigo candidiasis-nystatin powder. 10. Hypertension-continue metoprolol. 11. Hyperlipidemia-continue statin. 12. GERD-continue PPI. 13. Depression/anxiety-on hydroxyzine, Effexor. 14. History of DVT? Per documentation on Coumadin however not noted in external pharmacy or med list. Recent hospitalization at [facility] 2 weeks prior, no note of Coumadin on [place] medication list. INR 2.2 on admission which has since trended down. CTA without PE. Patient had recent lower extremity Doppler 01/30/2021 that was negative for DVT. DVT prophylaxis-Lovenox subcu Discharge planning: Return to SNF for rehab when medically stable. This patient was seen by MOISES Maher under the supervision of Dr. Duong. Documented by User: Dr. Robert Duong MD 02/13/21 10:24 Objective Data Lab / Micro Data Result Diagrams: 02/13/21 06:40 02/13/21 06:40 Charges/Coding Addendum Addendum: Dr. Duong: I personally reviewed the chart and examined the patient, and agree with the above findings. 55-year-old female presented from a longterm with urinary retention and was found to have staph santiago bacteremia. She was initially started on Vanco and Zosyn and infectious disease was consulted and transitioned her to daptomycin secondary to worsening kidney function. There was concern for endocarditis, initial TTE was negative for any vegetations, CTA as well as a TRESSA were also negative for vegetations. She was complaining of body aches which according to infectious disease can be a side effect of the daptomycin so CPK was ordered and was normal. We will continue to monitor. Visit Charges Inpatient E&M: 15494 Subs Hosp L2
--- NOTE | 2021-02-12 14:10 | PCM.PN.REN ---
Subjective Subjective No N/V/D/SOB Patient cannot eat well due to dysphagia Objective Data Objective Data Vital Signs: Vital Signs Temp Pulse Resp BP Pulse Ox 97.5 F L 67 16 123/56 H 100 02/12/21 08:26 02/12/21 12:00 02/12/21 08:26 02/12/21 08:26 02/12/21 08:26 Oxygen Flow Rate (L/min) 2 Oxygen Delivery Method Nasal Cannula Weight: 144.9 kg Body Mass Index (BMI) 58.4 Intake & Output: Intake and Output for Last 24 Hours 02/10/21 02/11/21 02/12/21 23:59 23:59 23:59 Intake Total 270 / 270 902.50 / 1022.50 120 / 120 Output Total 550 / 550 800 / 1050 400 / 400 Balance -280 / -280 102.50 / -27.50 -280 / -280 Lab / Micro Data Result Diagrams: 02/12/21 06:15 02/12/21 06:15 Labs: Laboratory Results - last 24 hr 02/09/21 07:25: Diff Path Review Reviewed 02/11/21 05:40: Diff Path Review Reviewed 02/11/21 12:36: POC Glucose 94 02/11/21 16:42: POC Glucose 135 H 02/11/21 21:36: POC Glucose 136 H 02/12/21 06:15: PT 19.1 H, INR 1.7 02/12/21 06:15: WBC 19.4 H, RBC 2.91 L, Hgb 8.3 L, Hct 25.9 L, MCV 89.0, MCH 28.5, MCHC 32.0, RDW Std Deviation 58.3 H, RDW Coeff of Sherine 19.0 H, Plt Count 514 H, MPV 11.2, Immature Gran % (Auto) 2.900 H, Neut % (Auto) 86.5 H, Lymph % (Auto) 1.5 L, [place] % (Auto) 6.1, Eos % (Auto) 2.6, Baso % (Auto) 0.4, Absolute Neuts (auto) 16.8 H, Absolute Lymphs (auto) 0.30 L, Nucleated RBC % 12.8 H, Diff Path Review Reviewed, Platelet Estimate MOD INC, Plt Morphology Comment LARGE 02/12/21 06:15: Sodium 135 L, Potassium 4.4, Chloride 99, Carbon Dioxide 22.0, Anion Gap 14, BUN 64 H, Creatinine 2.58 H, Estim Creat Clear Calc 19.03, Est GFR (MDRD) Af Amer 25 L, Est GFR (MDRD) Non-Af 20 L, BUN/Creatinine Ratio 24.8 H, Glucose 121 H, Calcium 8.8 02/12/21 06:15: Total Creatine Kinase 89 02/12/21 06:29: POC Glucose 120 H 02/12/21 11:07: POC Glucose 136 H Micro: Microbiology 02/10/21 08:36 Blood Culture (Wb) - Right Hand Blood Culture - Preliminary No growth in 48 hours. 02/09/21 15:20 Blood Culture (Wb) - Right Hand Blood Culture - Preliminary No growth in 48 hours. 02/07/21 14:00 Blood Culture (Wb) - Right Hand Blood Culture - Preliminary Meth. resistant Staph. aureus 02/08/21 10:15 Blood Culture (Wb) - Right Hand Blood Culture - Preliminary No growth in 48 hours. 02/07/21 02:00 Interface Orders SARS-CoV-2 Antigen (Rapid) - Final Rhythm Strip Rhythm Strip: Sinus Rhythm Rate: 83 Ectopy: None Physical Exam Narrative Alert awake oriented x 3 no obvious distress no pallor no icterus no JVD s1s2 no murmurs lungs clear abdomen soft no organomegaly ++ edema no cyanosis botello + Assessment & Plan Assessment/Plan (1) RHODA (acute kidney injury): PLAN: Acute renal failure. Baseline creatinine is around 1.1-1.2. Likely has some early CKD stage IIIa RHODA is from ATN likely from CTA , bacteremia and vancomycin toxicity Cr is stable at 2.5. Non oliguric Pro/Cr 3.3 g No need for WINDOWS DEPLOYMENT TECHNICIAN Check RFP in am Ok to diurese the patient if worse respiratory status She had a CT contrast on admission to rule out PE Questions answered
--- NOTE | 2021-02-12 14:19 | PCM.PN.ID ---
Physical Exam Narrative Not feeling well, c/o body aches, no fever Const alert General Appearance: cooperative Resp normal air movement and clear to auscultation bilaterally Cardio regular rate and regular rhythm GI normal to inspection, nondistended, normoactive bowel sounds Skin no rashes or lesions noted ID ID: Route of nutrition/ use of supplements: [] Nutritional Intake: [] IV Site: [] Carlos Catheter: [] Assessment & Plan Assessment/Plan (1) Staphylococcus aureus bacteremia: PLAN: MRSA bacteremia, suspicion for endocarditis given osler's nodes and splinter hemorrhage on hands. Repeat bcx neg since 02/08. Has had covid shot, 1 of 2. TTE neg for veg. CTA and TRESSA neg for veg or embolic disease. Changed vanc to dapto on 02/09 due to worsening RHODA. With aches, checking CK which was normal. Will follow, d/w Dr. Duong (2) RHODA (acute kidney injury):
--- NOTE | 2021-02-12 14:48 | NURSING ---
This RN reviewed SN charting and was with SN during all medication administration.
[2021-02-12 17:01] LABS: Bedside Glucose 146 mg/dL (70-110)
[2021-02-12] MEDS: Atorvastatin Calcium 40 MG Tablet PO (20:43)
[2021-02-12 22:30] LABS: Bedside Glucose 143 mg/dL (70-110)
[2021-02-13] VITALS (13 sets, daily range): BP systolic 124–141; BP diastolic 54–67; PULSE 70–95; RESP 18–19; TEMP 36.3–37.2; O2SAT 95–99
[2021-02-13] MEDS: Nystatin Powder 15gm Bottle 1 APPLIC TOPICAL ×3 (06:42→21:53)
[2021-02-13] MEDS: Insulin Lispro 100 UNIT/ML INSULN.PEN SC ×3 (06:43→16:28)
[2021-02-13 06:51] LABS: Bedside Glucose 158 mg/dL (70-110)
[2021-02-13 07:08] LABS: Hematocrit 27.7 % (37-47); Hemoglobin 8.6 g/dL (12.0-15.0); Mean Corpuscular Hgb 28.4 pg (27.0-32.0); Mean Corpuscular Volume 91.4 fL (81-99); Mean Platelet Vol. 11.2 fl (6.2-12.0); POSITIVE COUNT YES; POSITIVE MORPHOLOGY YES; Platelet Count 571 K/mm3 (150-450); RBC Distribution Width CV 20.1 % (11.6-14.6); RBC Distribution Width SD 60.3 fl (35.1-43.9); Red Blood Count 3.03 M/mm3 (4.2-5.4)
[2021-02-13 07:20] LABS: Differential Indicated MANUAL DIFF
[2021-02-13 07:39] LABS: Corrected WBC 17.4 K/mm3 (4.4-11.0); Eosinophil 4 % (0-5); Lymphocyte 10 % (19-41); Monocyte 7 % (0-10); Neutrophil-Segmented 79 % (47-70); Nucleated Red Bld Cells,Manual 18 % (0-5); Total Cells Counted 100 (MANUAL DIFF)
[2021-02-13 07:40] LABS: Anisocytosis 1+; Platelet Estimate MOD INC (ADEQ); Red Cell Morphology N CHROM NORMAL (NORM C&C)
[2021-02-13 07:41] LABS: Absolute Lymphocyte Count 1.74 X10^3/uL (0.83-4.51); Absolute Neutrophil Count 13.7 X10^3/uL (2.0-7.7); Lymphocyte # 1.74 X10^3/ul (0.83-4.51)
[2021-02-13 07:44] LABS: Anion Gap 13 (5-15); BUN 73 mg/dL (7-18); BUN/Creat Ratio 28.9 RATIO (10-20); Calcium,Total 8.7 mg/dL (8.5-10.1); Chloride 101 mmol/L (98-107); Creatinine, Serum 2.53 mg/dL (0.55-1.02); EST Glomerular Filtration Rate 21 mL/min (>60); Est Glom Filt Rate - Afr Amer 25 mL/min (>60); Glucose 165 mg/dL (74-106); Potassium 4.9 mmol/L (3.5-5.1); Sodium Level 136 mmol/L (136-145)
--- NOTE | 2021-02-13 10:01 | CASEMGMT ---
FRANCESCA called Jael Linda with [employer] and left her a voice mail requesting a return call. FRANCESCA wants to verify pre-cert was started. Marlen Perez ESTIMATOR PAPERBOARD BOXES THAI
[2021-02-13] MEDS: Metoprolol Tartrate 25 MG Tablet 37.5 MG PO ×2 (10:26→21:52)
[2021-02-13] MEDS: Enoxaparin 30 MG/0.3 ML Syringe SC ×2 (10:32→21:53)
[2021-02-13] MEDS: NYSTATIN 500,000 UNIT/5 ML UDC 500000 UNIT PO ×4 (10:32→21:53)
[2021-02-13] MEDS: Mupirocin Ointment 22gm Tube 1 APPLIC TOPICAL ×2 (10:46→21:51)
[2021-02-13] MEDS: Pantoprazole Sodium 40 MG Tablet PO ×2 (10:46→21:53)
[2021-02-13 12:20] LABS: Bedside Glucose 191 mg/dL (70-110)
[2021-02-13 13:26] LABS: Pathologist Review Reviewed
--- NOTE | 2021-02-13 14:02 | PCM.PN.HOSP ---
Documented by User: Olinda Kelley PRESS AND BLOW MACHINE TENDER, PRESS AND BLOW MACHINE TENDER-C 02/13/21 14:14 Subjective Subjective Patient seen and examined. Reports continued general myalgias. States mouth pain is improved, thinks she may have dental pain. Denies new symptoms or complaints. Objective Data Objective Data Vital Signs: Vital Signs Temp Pulse Resp BP Pulse Ox 98.9 F 80 18 134/67 H 96 02/13/21 08:30 02/13/21 11:00 02/13/21 08:30 02/13/21 08:30 02/13/21 08:30 Oxygen Flow Rate (L/min) 2 Oxygen Delivery Method Nasal Cannula Weight: 319 lb 7.197 oz Body Mass Index (BMI) 58.4 Intake & Output: Intake and Output for Last 24 Hours 02/11/21 02/12/21 02/13/21 23:59 23:59 23:59 Intake Total 902.50 / 1022.50 720 / 720 70 / 70 Output Total 800 / 1050 775 / 925 400 / 400 Balance 102.50 / -27.50 -55 / -205 -330 / -330 Lab / Micro Data Result Diagrams: 02/13/21 06:40 02/13/21 06:40 Labs: Laboratory Results - last 24 hr 02/12/21 16:38: POC Glucose 146 H 02/12/21 20:38: POC Glucose 143 H 02/13/21 06:40: WBC PRESS AND BLOW MACHINE TENDER, Corrected WBC 17.4 H, RBC 3.03 L, Hgb 8.6 L, Hct 27.7 L, MCV 91.4, MCH 28.4, MCHC 31.0 L, RDW Std Deviation 60.3 H, RDW Coeff of Sherine 20.1 H, Plt Count 571 H, MPV 11.2, Neut % (Auto) Not Reportable, Absolute Neuts (auto) 13.7 H, Absolute Lymphs (auto) 1.74, Total Counted 100, Neutrophils % (Manual) 79 H, Lymphocytes % (Manual) 10 L, Monocytes % (Manual) 7, Eosinophils % (Manual) 4, Nucleated RBCs/100 WBC 18 H, Diff Path Review Reviewed, Platelet Estimate MOD INC, RBC Morphology N CHROM, Anisocytosis 1+ 02/13/21 06:40: Sodium 136, Potassium 4.9, Chloride 101, Carbon Dioxide 22.0, Anion Gap 13, BUN 73 H, Creatinine 2.53 H, Estim Creat Clear Calc 19.40, Est GFR (MDRD) Af Amer 25 L, Est GFR (MDRD) Non-Af 21 L, BUN/Creatinine Ratio 28.9 H, Glucose 165 H, Calcium 8.7 02/13/21 06:42: POC Glucose 158 H 02/13/21 12:13: POC Glucose 191 H Micro: Microbiology 02/08/21 10:15 Blood Culture (Wb) - Right Hand Blood Culture - Final No growth in 5 days. 02/07/21 14:00 Blood Culture (Wb) - Right Hand Blood Culture - Final Meth. resistant Staph. aureus 02/10/21 08:36 Blood Culture (Wb) - Right Hand Blood Culture - Preliminary No growth in 48 hours. 02/09/21 15:20 Blood Culture (Wb) - Right Hand Blood Culture - Preliminary No growth in 48 hours. 02/07/21 02:00 Interface Orders SARS-CoV-2 Antigen (Rapid) - Final Rhythm Strip Rhythm Strip: Sinus Rhythm Rate: 83 Ectopy: None Physical Exam Const alert, oriented x3 and no apparent distress Orientation / Consciousness: awake, oriented to person, oriented to place and oriented to time Nutritional Appearance: obese HEENT normocephalic and moist oral mucous membranes Eyes PERRL, EOMs intact bilaterally and conjunctivae normal Neck no lymphadenopathy Resp normal respiratory effort and clear to auscultation bilaterally Cardio regular rate, regular rhythm and no murmurs Peripheral Pulses: pulses 2+ throughout GI normal to inspection, nondistended, normoactive bowel sounds, non-tender and non-distended Extremity normal to inspection Skin no rashes or lesions noted Skin Narrative: Scattered scabbed areas on face and arms, picking behavior. Lesions: no lesions Rashes: no rashes Trauma: no lacerations or abrasions Neuro CN's II-XII intact bilaterally, no focal motor deficits, no sensory deficits noted and deep tendon reflexes 2+ bilaterally Psych Mood & Affect: flat affect Assessment & Plan Assessment/Plan (1) Staphylococcus aureus bacteremia: PLAN: 1. MRSA bacteremia-ID following. On IV daptomycin. TRESSA without vegetation. Repeats blood cultures 02/08 through 02/10 with no growth. CTA with no evidence of PE, cardiomegaly with interstitial edema and small bilateral pleural effusions. Further ongoing recommendations per ID. Patient reports myalgias, CK obtained due to being on daptomycin which was normal. 2. Acute kidney injury-Carlos placed due to retention. Patient was on temporary dialysis during recent admission at [facility]. FENa 0.1%, pre-renal. Nephrology consulted. Possibly ATN versus postinfectious glomerulonephritis. Further Lasix discontinued. Trend BMP. Creatinine slightly improved from prior. 3. Urinary retention-Carlos catheter in place. Will need voiding trial prior to discharge. If recurrent issue, will need urology consult. 4. Acute on Chronic heart failure with preserved ejection fraction-recently initiated on Lasix due to exacerbation at [facility]. Echocardiogram with EF 55%. CTA with small bilateral pleural effusions. BNP 434. Further Lasix discontinued due to increasing creatinine. Strict I&O. Daily weight. 5. Normocytic anemia-appears chronic however unknown baseline. Transfuse for hemoglobin less than 7. Check stool for occult blood. Initiate PPI empirically. Iron studies consistent with iron deficiency. IV iron x3 doses then initiate oral regimen. 6. Type 2 diabetes [id number] with sliding scale insulin. Patient has had poor oral intake and episodes of hypoglycemia. Reduce long-acting to 10 units daily. 7. Rheumatoid arthritis-hold methotrexate. 8. Dermatitis-picking behavior on face. Topical Bactroban. Discouraged picking scabbed areas. 9. Intertrigo candidiasis-nystatin powder. 10. Hypertension-continue metoprolol. 11. Hyperlipidemia-continue statin. 12. GERD-continue PPI. 13. Depression/anxiety-on hydroxyzine, Effexor. 14. History of DVT? Per documentation on Coumadin however not noted in external pharmacy or med list. Recent hospitalization at [facility] 2 weeks prior, no note of Coumadin on [place] medication list. INR 2.2 on admission which has since trended down. CTA without PE. Patient had recent lower extremity Doppler 01/30/2021 that was negative for DVT. DVT prophylaxis-Lovenox subcu Discharge planning: Return to SNF for rehab pending approval. This patient was seen by MOISES Maher under the supervision of Dr. Duong. Documented by User: Dr. Robert Duong MD 02/13/21 14:43 Objective Data Lab / Micro Data Result Diagrams: 02/13/21 06:40 02/13/21 06:40 Charges/Coding Addendum Addendum: Dr. Duong: I personally reviewed the chart and examined the patient, and agree with the above findings. 55-year-old female presented from a senior care with urinary retention and was found to have staph santiago bacteremia. She was initially started on Vanco and Zosyn and infectious disease was consulted and transitioned her to daptomycin secondary to worsening kidney function. There was concern for endocarditis, initial TTE was negative for any vegetations, CTA as well as a TRESSA were also negative for vegetations. She was complaining of body aches which according to infectious disease can be a side effect of the daptomycin so CPK was ordered and was normal. We will continue to monitor. 02/13/2021: Continues to have some joint achiness today but otherwise remains unchanged, this is consistent with her rheumatoid arthritis and fibromyalgia especially in the setting of an acute illness. Appreciate both infectious disease as well as nephrology's assistance. We will continue to monitor and plan for disposition discharged to the longterm facility. She would like to change her when she is at therefore we are awaiting pre-CERT at this time. Visit Charges Inpatient E&M: 47698 Subs Hosp L2
--- NOTE | 2021-02-13 14:07 | PCM.PN.REN ---
Subjective Subjective trying to eat more . No N/V/D/CP Objective Data Objective Data Vital Signs: Vital Signs Temp Pulse Resp BP Pulse Ox 98.9 F 80 18 134/67 H 96 02/13/21 08:30 02/13/21 11:00 02/13/21 08:30 02/13/21 08:30 02/13/21 08:30 Oxygen Flow Rate (L/min) 2 Oxygen Delivery Method Nasal Cannula Weight: 144.9 kg Body Mass Index (BMI) 58.4 Intake & Output: Intake and Output for Last 24 Hours 02/11/21 02/12/21 02/13/21 23:59 23:59 23:59 Intake Total 902.50 / 1022.50 720 / 720 70 / 70 Output Total 800 / 1050 775 / 925 400 / 400 Balance 102.50 / -27.50 -55 / -205 -330 / -330 Lab / Micro Data Result Diagrams: 02/13/21 06:40 02/13/21 06:40 Labs: Laboratory Results - last 24 hr 02/12/21 16:38: POC Glucose 146 H 02/12/21 20:38: POC Glucose 143 H 02/13/21 06:40: WBC PINKING MACHINE OPERATOR, Corrected WBC 17.4 H, RBC 3.03 L, Hgb 8.6 L, Hct 27.7 L, MCV 91.4, MCH 28.4, MCHC 31.0 L, RDW Std Deviation 60.3 H, RDW Coeff of Sherine 20.1 H, Plt Count 571 H, MPV 11.2, Neut % (Auto) Not Reportable, Absolute Neuts (auto) 13.7 H, Absolute Lymphs (auto) 1.74, Total Counted 100, Neutrophils % (Manual) 79 H, Lymphocytes % (Manual) 10 L, Monocytes % (Manual) 7, Eosinophils % (Manual) 4, Nucleated RBCs/100 WBC 18 H, Diff Path Review Reviewed, Platelet Estimate MOD INC, RBC Morphology N CHROM, Anisocytosis 1+ 02/13/21 06:40: Sodium 136, Potassium 4.9, Chloride 101, Carbon Dioxide 22.0, Anion Gap 13, BUN 73 H, Creatinine 2.53 H, Estim Creat Clear Calc 19.40, Est GFR (MDRD) Af Amer 25 L, Est GFR (MDRD) Non-Af 21 L, BUN/Creatinine Ratio 28.9 H, Glucose 165 H, Calcium 8.7 02/13/21 06:42: POC Glucose 158 H 02/13/21 12:13: POC Glucose 191 H Micro: Microbiology 02/08/21 10:15 Blood Culture (Wb) - Right Hand Blood Culture - Final No growth in 5 days. 02/07/21 14:00 Blood Culture (Wb) - Right Hand Blood Culture - Final Meth. resistant Staph. aureus 02/10/21 08:36 Blood Culture (Wb) - Right Hand Blood Culture - Preliminary No growth in 48 hours. 02/09/21 15:20 Blood Culture (Wb) - Right Hand Blood Culture - Preliminary No growth in 48 hours. 02/07/21 02:00 Interface Orders SARS-CoV-2 Antigen (Rapid) - Final Rhythm Strip Rhythm Strip: Sinus Rhythm Rate: 83 Ectopy: None Physical Exam Narrative Alert awake oriented x 3 no obvious distress no pallor no JVD s1s2 no murmurs lungs clear abdomen soft no organomegaly ++ edema no cyanosis botello + Assessment & Plan Assessment/Plan (1) RHODA (acute kidney injury): PLAN: Acute renal failure. Baseline creatinine is around 1.1-1.2. Likely has some early CKD stage IIIa likely stef DNP. Pro/Cr 3300 mg/g RHODA is from ATN likely from CTA , bacteremia and vancomycin toxicity Cr is stable at 2.5. Non oliguric No need for INDUSTRIAL HYGIENE ENGINEER Check RFP in am Ok to diurese the patient if worse respiratory status rest of management as per ID and primary service Call if any question. Will follow
--- NOTE | 2021-02-13 14:19 | CASEMGMT ---
FRANCESCA called Jael Mckeon at [facility] and she did start patient's pre-cert yesterday. Marlen Perez EMBEDDED FIRMWARE DEVELOPER THAI
[2021-02-13 14:44] LABS: Complement C3 214 mg/dL (82-167)
[2021-02-13] MEDS: oxyCODONE 5 MG Tablet PO ×2 (16:21→21:52)
[2021-02-13 16:56] LABS: Bedside Glucose 209 mg/dL (70-110)
[2021-02-13] MEDS: Atorvastatin Calcium 40 MG Tablet PO (21:53)
[2021-02-13 22:05] LABS: Bedside Glucose 209 mg/dL (70-110)
[2021-02-14] VITALS (13 sets, daily range): BP systolic 117–140; BP diastolic 60–83; PULSE 67–79; RESP 18–20; TEMP 36.3–36.8; O2SAT 96–100
[2021-02-14] MEDS: Nystatin Powder 15gm Bottle 1 APPLIC TOPICAL ×3 (06:34→21:32)
[2021-02-14] MEDS: Insulin Lispro 100 UNIT/ML INSULN.PEN SC ×3 (06:42→16:39)
[2021-02-14 06:50] LABS: Bedside Glucose 203 mg/dL (70-110)
[2021-02-14 06:51] LABS: Absolute Lymphocyte Count 2.34 X10^3/uL (0.83-4.51); Absolute Neutrophil Count 11.4 X10^3/uL (2.0-7.7); Basophil# 0.09 X10^3/uL; Basophil% 0.6 % (0-1); Eosinophil# 0.54 X10^3/uL; Eosinophils% 3.4 % (0-5); Hematocrit 26.4 % (37-47); Hemoglobin 8.3 g/dL (12.0-15.0); Lymphocyte # 2.34 X10^3/ul (0.83-4.51); Lymphocyte % 14.6 % (19-41); Mean Corp Hgb Conc 31.4 g/dL (32-36); Mean Corpuscular Hgb 28.5 pg (27.0-32.0); Mean Corpuscular Volume 90.7 fL (81-99); Mean Platelet Vol. 11.5 fl (6.2-12.0); Monocyte# 1.19 X10^3/uL; Monocyte% 7.4 % (0-10); NRBC Flagged by Analyzer 20.3 % (0-5); Neutrophil # 11.43 X10^3/uL (2.7-7.7); Neutrophil % 71.4 % (47-70); POSITIVE COUNT YES; POSITIVE MORPHOLOGY YES; Platelet Count 564 K/mm3 (150-450); RBC Distribution Width CV 20.5 % (11.6-14.6); RBC Distribution Width SD 60.8 fl (35.1-43.9); Red Blood Count 2.91 M/mm3 (4.2-5.4)
[2021-02-14 07:00] LABS: Differential Indicated SCAN CRITERIA MET
[2021-02-14 07:27] LABS: Anion Gap 12 (5-15); BUN 74 mg/dL (7-18); BUN/Creat Ratio 30.2 RATIO (10-20); Calcium,Total 8.4 mg/dL (8.5-10.1); Chloride 103 mmol/L (98-107); Creatinine, Serum 2.45 mg/dL (0.55-1.02); EST Glomerular Filtration Rate 22 mL/min (>60); Est Glom Filt Rate - Afr Amer 26 mL/min (>60); Estimated Creatinine Clearance 20.04 ml/min; Glucose 202 mg/dL (74-106); Potassium 4.8 mmol/L (3.5-5.1); Sodium Level 136 mmol/L (136-145)
[2021-02-14 07:29] LABS: Anisocytosis 1+; Differential Comment SCANNED; Macrocytosis 1+; Polychromasia RARE
[2021-02-14] MEDS: oxyCODONE 5 MG Tablet PO ×2 (08:00→21:33)
[2021-02-14] MEDS: Pantoprazole Sodium 40 MG Tablet PO ×2 (08:01→21:33)
[2021-02-14] MEDS: NYSTATIN 500,000 UNIT/5 ML UDC 500000 UNIT PO ×4 (08:01→21:32)
[2021-02-14] MEDS: Metoprolol Tartrate 25 MG Tablet 37.5 MG PO ×2 (08:02→21:32)
[2021-02-14] MEDS: Mupirocin Ointment 22gm Tube 1 APPLIC TOPICAL ×2 (08:02→21:32)
[2021-02-14] MEDS: Enoxaparin 30 MG/0.3 ML Syringe SC ×2 (08:02→21:33)
[2021-02-14] MEDS: Ferrous Sulfate 325 MG Tablet PO (10:52)
[2021-02-14 11:00] LABS: Bedside Glucose 222 mg/dL (70-110)
--- NOTE | 2021-02-14 13:27 | CASEMGMT ---
FRANCESCA received a voice mail from Jael Mckeon with [facility]. She said insurance is requesting updated clinicals. SW faxed updated clinicals. Marlen ANDRE
--- NOTE | 2021-02-14 13:44 | PCM.PN.REN ---
Subjective Subjective no acute events Objective Data Objective Data Vital Signs: Vital Signs Temp Pulse Resp BP Pulse Ox 97.8 F 67 18 117/67 96 02/14/21 10:50 02/14/21 10:50 02/14/21 10:50 02/14/21 10:50 02/14/21 10:50 Oxygen Flow Rate (L/min) 1 Oxygen Delivery Method Nasal Cannula Weight: 144.9 kg Body Mass Index (BMI) 58.4 Intake & Output: Intake and Output for Last 24 Hours 02/12/21 02/13/21 02/14/21 23:59 23:59 23:59 Intake Total 720 / 720 1440 / 1500 60 / 60 Output Total 775 / 925 950 / 1400 710 / 710 Balance -55 / -205 490 / 100 -650 / -650 Lab / Micro Data Result Diagrams: 02/14/21 06:20 02/14/21 06:20 Labs: Laboratory Results - last 24 hr 02/11/21 06:20: Complement C3 214 H 02/13/21 16:27: POC Glucose 209 H 02/13/21 21:51: POC Glucose 209 H 02/14/21 06:20: WBC 16.0 H, RBC 2.91 L, Hgb 8.3 L, Hct 26.4 L, MCV 90.7, MCH 28.5, MCHC 31.4 L, RDW Std Deviation 60.8 H, RDW Coeff of Sherine 20.5 H, Plt Count 564 H, MPV 11.5, Immature Gran % (Auto) 2.600 H, Neut % (Auto) 71.4 H, Lymph % (Auto) 14.6 L, [place] % (Auto) 7.4, Eos % (Auto) 3.4, Baso % (Auto) 0.6, Absolute Neuts (auto) 11.4 H, Absolute Lymphs (auto) 2.34, Nucleated RBC % 20.3 H, Differential Comment SCANNED, Polychromasia RARE, Anisocytosis 1+, Macrocytosis 1+ 02/14/21 06:20: Sodium 136, Potassium 4.8, Chloride 103, Carbon Dioxide 21.0, Anion Gap 12, BUN 74 H, Creatinine 2.45 H, Estim Creat Clear Calc 20.04, Est GFR (MDRD) Af Amer 26 L, Est GFR (MDRD) Non-Af 22 L, BUN/Creatinine Ratio 30.2 H, Glucose 202 H, Calcium 8.4 L 02/14/21 06:36: POC Glucose 203 H 02/14/21 10:48: POC Glucose 222 H Micro: Microbiology 02/08/21 10:15 Blood Culture (Wb) - Right Hand Blood Culture - Final No growth in 5 days. 02/07/21 14:00 Blood Culture (Wb) - Right Hand Blood Culture - Final Meth. resistant Staph. aureus 02/10/21 08:36 Blood Culture (Wb) - Right Hand Blood Culture - Preliminary No growth in 48 hours. 02/09/21 15:20 Blood Culture (Wb) - Right Hand Blood Culture - Preliminary No growth in 48 hours. 02/07/21 02:00 Interface Orders SARS-CoV-2 Antigen (Rapid) - Final Rhythm Strip Rhythm Strip: Sinus Rhythm Rate: 83 Ectopy: None Physical Exam Narrative Alert awake oriented x 3 no obvious distress no pallor no JVD s1s2 no murmurs lungs clear abdomen soft no organomegaly ++ edema no cyanosis botello + Assessment & Plan Assessment/Plan (1) RHODA (acute kidney injury): PLAN: Acute renal failure. Baseline creatinine is around 1.1-1.2. Likely has some early CKD stage IIIa likely stef DNP. Pro/Cr 3300 mg/g RHODA is from ATN likely from CTA , bacteremia and vancomycin toxicity Cr is improving slowly . Non oliguric No need for OEM SALES MANAGER Check RFP in am Ok to diurese the patient if worse respiratory status rest of management as per ID and primary service Call if any question. Will follow
--- NOTE | 2021-02-14 14:15 | PN.HOSP_ITS ---
Documented by User: Olinda Kelley NP, AIRCRAFT MANAGER-C 02/14/21 14:20 Subjective Subjective Patient seen and examined. Awaiting insurance approval to [facility]. Reports myalgias have improved. Denies new symptoms or complaints Objective Data Objective Data Vital Signs: Vital Signs Temp Pulse Resp BP Pulse Ox 97.8 F 67 18 117/67 96 02/14/21 10:50 02/14/21 10:50 02/14/21 10:50 02/14/21 10:50 02/14/21 10:50 Oxygen Flow Rate (L/min) 1 Oxygen Delivery Method Nasal Cannula Weight: 319 lb 7.197 oz Body Mass Index (BMI) 58.4 Intake & Output: Intake and Output for Last 24 Hours 02/12/21 02/13/21 02/14/21 23:59 23:59 23:59 Intake Total 720 / 720 1440 / 1500 60 / 60 Output Total 775 / 925 950 / 1400 710 / 710 Balance -55 / -205 490 / 100 -650 / -650 Lab / Micro Data Result Diagrams: 02/14/21 06:20 02/14/21 06:20 Labs: Laboratory Results - last 24 hr 02/11/21 06:20: Complement C3 214 H 02/13/21 16:27: POC Glucose 209 H 02/13/21 21:51: POC Glucose 209 H 02/14/21 06:20: WBC 16.0 H, RBC 2.91 L, Hgb 8.3 L, Hct 26.4 L, MCV 90.7, MCH 28.5, MCHC 31.4 L, RDW Std Deviation 60.8 H, RDW Coeff of Sherine 20.5 H, Plt Count 564 H, MPV 11.5, Immature Gran % (Auto) 2.600 H, Neut % (Auto) 71.4 H, Lymph % (Auto) 14.6 L, [place] % (Auto) 7.4, Eos % (Auto) 3.4, Baso % (Auto) 0.6, Absolute Neuts (auto) 11.4 H, Absolute Lymphs (auto) 2.34, Nucleated RBC % 20.3 H, Differential Comment SCANNED, Polychromasia RARE, Anisocytosis 1+, Macrocytosis 1+ 02/14/21 06:20: Sodium 136, Potassium 4.8, Chloride 103, Carbon Dioxide 21.0, Anion Gap 12, BUN 74 H, Creatinine 2.45 H, Estim Creat Clear Calc 20.04, Est GFR (MDRD) Af Amer 26 L, Est GFR (MDRD) Non-Af 22 L, BUN/Creatinine Ratio 30.2 H, Glucose 202 H, Calcium 8.4 L 02/14/21 06:36: POC Glucose 203 H 02/14/21 10:48: POC Glucose 222 H Micro: Microbiology 02/08/21 10:15 Blood Culture (Wb) - Right Hand Blood Culture - Final No growth in 5 days. 02/07/21 14:00 Blood Culture (Wb) - Right Hand Blood Culture - Final Meth. resistant Staph. aureus 02/10/21 08:36 Blood Culture (Wb) - Right Hand Blood Culture - Preliminary No growth in 48 hours. 02/09/21 15:20 Blood Culture (Wb) - Right Hand Blood Culture - Preliminary No growth in 48 hours. 02/07/21 02:00 Interface Orders SARS-CoV-2 Antigen (Rapid) - Final Rhythm Strip Rhythm Strip: Sinus Rhythm Rate: 83 Ectopy: None Physical Exam Const alert, oriented x3 and no apparent distress Orientation / Consciousness: awake, oriented to person, oriented to place and oriented to time Nutritional Appearance: obese HEENT normocephalic Mouth: dry mucous membranes Eyes PERRL, EOMs intact bilaterally and conjunctivae normal Neck no lymphadenopathy Resp clear to auscultation bilaterally Auscultation: diminished lung sounds Cardio regular rate, regular rhythm and no murmurs Peripheral Pulses: pulses 2+ throughout GI normal to inspection, nondistended, normoactive bowel sounds, non-tender and non-distended Extremity normal to inspection Skin no rashes or lesions noted Skin Narrative: Scattered scabbed areas on face and arms, picking behavior. Lesions: no lesions Rashes: no rashes Trauma: no lacerations or abrasions Neuro CN's II-XII intact bilaterally, no focal motor deficits, no sensory deficits noted and deep tendon reflexes 2+ bilaterally Psych mental status grossly normal and affect normal Assessment & Plan Assessment/Plan (1) Staphylococcus aureus bacteremia: PLAN: 1. MRSA bacteremia-ID following. On IV daptomycin. TRESSA without vegetation. Repeats blood cultures 02/08 through 02/10 with no growth. CTA with no evidence of PE, cardiomegaly with interstitial edema and small bilateral pleural effusions. Further ongoing recommendations per ID. Patient reports myalgias, CK obtained due to being on daptomycin which was normal. 2. Acute kidney injury-Carlos placed due to retention. Patient was on temporary dialysis during recent admission at [facility]. FENa 0.1%, pre-renal. Nephrology consulted. Possibly ATN versus postinfectious glomerulonephritis. Further Lasix discontinued. Trend BMP. Creatinine slightly improved from prior. 3. Urinary retention-Carlos catheter in place. Will need voiding trial prior to discharge. If recurrent issue, will need urology consult. 4. Acute on Chronic heart failure with preserved ejection fraction-recently initiated on Lasix due to exacerbation at [facility]. Echocardiogram with EF 55%. CTA with small bilateral pleural effusions. BNP 434. Further Lasix discontinued due to increasing creatinine. Strict I&O. Daily weight. 5. Normocytic anemia-appears chronic however unknown baseline. Transfuse for hemoglobin less than 7. Continue PPI empirically. Iron studies consistent with iron deficiency. IV iron x3 doses then initiate oral regimen. 6. Type 2 diabetes [id number] with sliding scale insulin. Patient has had poor oral intake and episodes of hypoglycemia. Glucose now improved, c ontinue Lantus 20 units daily and high-dose sliding scale insulin. 7. Rheumatoid arthritis-hold methotrexate. 8. Dermatitis-picking behavior on face. Topical Bactroban. Discouraged picking scabbed areas. 9. Intertrigo candidiasis-nystatin powder. 10. Hypertension-continue metoprolol. 11. Hyperlipidemia-continue statin. 12. GERD-continue PPI. 13. Depression/anxiety-on hydroxyzine, Effexor. 14. History of DVT? Per documentation on Coumadin however not noted in external pharmacy or med list. Recent hospitalization at [facility] 2 weeks prior, no note of Coumadin on [facility] medication list. INR 2.2 on admission which has since trended down. CTA without PE. Patient had recent lower extremity Doppler 01/30/2021 that was negative for DVT. DVT prophylaxis-Lovenox subcu Discharge planning: Return to SNF for rehab pending approval. This patient was seen by MOISES Maher under the supervision of Dr. Duong. Documented by User: Dr. Robert Duong MD 02/14/21 14:37 Objective Data Lab / Micro Data Result Diagrams: 02/14/21 06:20 02/14/21 06:20 Charges/Coding Addendum Addendum: Dr. Duong: I personally reviewed the chart and examined the patient, and agree with the above findings. 55-year-old female [facility] a [facility] with urinary retention and was found to have staph santiago bacteremia. She was initially started on Vanco and Zosyn and infectious disease was consulted and transitioned her to daptomycin secondary to worsening kidney function. There was concern for endocarditis, initial TTE was negative for any vegetations, CTA as well as a TRESSA were also negative for vegetations. She was complaining of body aches which according to infectious disease can be a side effect of the daptomycin so CPK was ordered and was normal. We will continue to monitor. 02/13/2021: Continues to have some joint achiness today but otherwise remains unchanged, this is consistent with her rheumatoid arthritis and fibromyalgia especially in the setting of an acute illness. Appreciate both infectious disease as well as nephrology's assistance. We will continue to monitor and plan for disposition discharged to the [facility] facility. She would like to change her when she is at therefore we are awaiting pre-CERT at this time. 02/14/2021: Myalgias are improving, as his renal function. We will continue with daptomycin, appreciate infectious disease and nephrology's input. Still awaiting pre-CERT for discharge to SNF. Visit Charges Inpatient E&M: 52632 Subs Hosp L2
--- NOTE | 2021-02-14 15:52 | PCM.PN.ID ---
Physical Exam Narrative Feeling better, no fever, aches improved Const alert General Appearance: cooperative Resp normal air movement and clear to auscultation bilaterally Cardio regular rate and regular rhythm GI normal to inspection, nondistended, normoactive bowel sounds Skin Skin Narrative: no new rash ID ID: Route of nutrition/ use of supplements: [] Nutritional Intake: [] IV Site: [] Carlos Catheter: [] Assessment & Plan Assessment/Plan (1) Staphylococcus aureus bacteremia: PLAN: MRSA bacteremia, suspicion for endocarditis given osler's nodes and splinter hemorrhage on hands. Repeat bcx neg since 02/08. Has had covid shot, 1 of 2. TTE neg for veg. CTA and TRESSA neg for veg or embolic disease. Changed vanc to dapto on 02/09 due to worsening RHODA. Feeling better, Bcx cleared, Cr stable. Plan will be for po linezolid at discharge for 10 more days, but would need to hold or decrease dose of effexor. Will follow (2) RHODA (acute kidney injury):
[2021-02-14 16:56] LABS: Bedside Glucose 213 mg/dL (70-110)
[2021-02-14] MEDS: Atorvastatin Calcium 40 MG Tablet PO (21:32)
[2021-02-14 21:46] LABS: Bedside Glucose 179 mg/dL (70-110)
[2021-02-15] VITALS (10 sets, daily range): BP systolic 120–149; BP diastolic 58–71; PULSE 71–85; RESP 14–18; TEMP 36.4; O2SAT 90–99
[2021-02-15 06:22] LABS: Absolute Lymphocyte Count 1.43 X10^3/uL (0.83-4.51); Absolute Neutrophil Count 8.8 X10^3/uL (2.0-7.7); Basophil# 0.07 X10^3/uL; Basophil% 0.6 % (0-1); Eosinophil# 0.56 X10^3/uL; Eosinophils% 4.6 % (0-5); Hematocrit 27.3 % (37-47); Hemoglobin 8.7 g/dL (12.0-15.0); Lymphocyte # 1.43 X10^3/ul (0.83-4.51); Lymphocyte % 11.8 % (19-41); Mean Corp Hgb Conc 31.9 g/dL (32-36); Mean Corpuscular Hgb 28.5 pg (27.0-32.0); Mean Corpuscular Volume 89.5 fL (81-99); Mean Platelet Vol. 11.8 fl (6.2-12.0); Monocyte% 8.3 % (0-10); NRBC Flagged by Analyzer 23.1 % (0-5); Neutrophil # 8.76 X10^3/uL (2.7-7.7); Neutrophil % 72.2 % (47-70); POSITIVE COUNT YES; POSITIVE MORPHOLOGY YES; Platelet Count 542 K/mm3 (150-450); RBC Distribution Width CV 20.7 % (11.6-14.6); RBC Distribution Width SD 61.2 fl (35.1-43.9); Red Blood Count 3.05 M/mm3 (4.2-5.4); White Blood Count 12.1 K/mm3 (4.4-11.0)
[2021-02-15 06:28] LABS: Differential Indicated SCAN CRITERIA MET
[2021-02-15] MEDS: Nystatin Powder 15gm Bottle 1 APPLIC TOPICAL ×3 (06:49→21:01)
[2021-02-15] MEDS: Insulin Lispro 100 UNIT/ML INSULN.PEN SC ×3 (06:51→17:06)
[2021-02-15 06:52] LABS: Anion Gap 10 (5-15); BUN 73 mg/dL (7-18); BUN/Creat Ratio 32.3 RATIO (10-20); Calcium,Total 8.8 mg/dL (8.5-10.1); Chloride 103 mmol/L (98-107); Creatinine, Serum 2.26 mg/dL (0.55-1.02); EST Glomerular Filtration Rate 24 mL/min (>60); Est Glom Filt Rate - Afr Amer 29 mL/min (>60); Estimated Creatinine Clearance 21.72 ml/min; Glucose 178 mg/dL (74-106); Potassium 5.1 mmol/L (3.5-5.1); Sodium Level 136 mmol/L (136-145)
[2021-02-15 07:00] LABS: Bedside Glucose 195 mg/dL (70-110)
[2021-02-15] MEDS: Metoprolol Tartrate 25 MG Tablet 37.5 MG PO ×2 (09:00→21:01)
[2021-02-15] MEDS: Enoxaparin 30 MG/0.3 ML Syringe SC ×2 (09:00→21:01)
[2021-02-15] MEDS: Pantoprazole Sodium 40 MG Tablet PO ×2 (09:00→21:02)
[2021-02-15] MEDS: 0.9% Saline Lock 10 ML Syringe IV (09:01)
[2021-02-15] MEDS: NYSTATIN 500,000 UNIT/5 ML UDC 500000 UNIT PO ×4 (09:01→21:00)
[2021-02-15] MEDS: oxyCODONE 5 MG Tablet PO ×2 (09:02→21:01)
[2021-02-15] MEDS: Mupirocin Ointment 22gm Tube 1 APPLIC TOPICAL ×2 (09:02→21:00)
[2021-02-15] MEDS: Ferrous Sulfate 325 MG Tablet PO (09:03)
[2021-02-15] MEDS: Furosemide 40 MG/4 ML Vial IV (09:16)
--- NOTE | 2021-02-15 09:25 | PCM.PN.REN ---
Subjective Subjective No worsening breathing No N/V/D Objective Data Objective Data Vital Signs: Vital Signs Temp Pulse Resp BP Pulse Ox 97.5 F L 77 18 147/71 H 95 02/15/21 09:00 02/15/21 09:00 02/15/21 09:00 02/15/21 09:00 02/15/21 09:00 Oxygen Flow Rate (L/min) 2 Oxygen Delivery Method Nasal Cannula Weight: 144.9 kg Body Mass Index (BMI) 58.4 Intake & Output: Intake and Output for Last 24 Hours 02/13/21 02/14/21 02/15/21 23:59 23:59 23:59 Intake Total 1440 / 1500 60 / 60 0 / 0 Output Total 950 / 1400 860 / 1110 250 / 250 Balance 490 / 100 -800 / -1050 -250 / -250 Lab / Micro Data Result Diagrams: 02/15/21 05:48 02/15/21 05:48 Labs: Laboratory Results - last 24 hr 02/14/21 10:48: POC Glucose 222 H 02/14/21 16:37: POC Glucose 213 H 02/14/21 21:31: POC Glucose 179 H 02/15/21 05:48: WBC 12.1 H, RBC 3.05 L, Hgb 8.7 L, Hct 27.3 L, MCV 89.5, MCH 28.5, MCHC 31.9 L, RDW Std Deviation 61.2 H, RDW Coeff of Sherine 20.7 H, Plt Count 542 H, MPV 11.8, Immature Gran % (Auto) 2.500 H, Neut % (Auto) 72.2 H, Lymph % (Auto) 11.8 L, [place] % (Auto) 8.3, Eos % (Auto) 4.6, Baso % (Auto) 0.6, Absolute Neuts (auto) 8.8 H, Absolute Lymphs (auto) 1.43, Nucleated RBC % 23.1 H, Diff Path Review September02/15/21 05:48: Sodium 136, Potassium 5.1, Chloride 103, Carbon Dioxide 23.0, Anion Gap 10, BUN 73 H, Creatinine 2.26 H, Estim Creat Clear Calc 21.72, Est GFR (MDRD) Af Amer 29 L, Est GFR (MDRD) Non-Af 24 L, BUN/Creatinine Ratio 32.3 H, Glucose 178 H, Calcium 8.8 02/15/21 06:48: POC Glucose 195 H Micro: Microbiology 02/09/21 15:20 Blood Culture (Wb) - Right Hand Blood Culture - Final No growth in 5 days. 02/08/21 10:15 Blood Culture (Wb) - Right Hand Blood Culture - Final No growth in 5 days. 02/07/21 14:00 Blood Culture (Wb) - Right Hand Blood Culture - Final Meth. resistant Staph. aureus 02/10/21 08:36 Blood Culture (Wb) - Right Hand Blood Culture - Preliminary No growth in 48 hours. 02/07/21 02:00 Interface Orders SARS-CoV-2 Antigen (Rapid) - Final Rhythm Strip Rhythm Strip: Sinus Rhythm Rate: 83 Ectopy: None Physical Exam Narrative Alert awake oriented x 3 no obvious distress no pallor no JVD s1s2 no murmurs lungs clear abdomen soft no organomegaly +++ edema no cyanosis botello + Assessment & Plan Assessment/Plan (1) RHODA (acute kidney injury): PLAN: Acute renal failure. Baseline creatinine is around 1.1-1.2. Likely has some early CKD stage IIIa likely stef DNP. Pro/Cr 3300 mg/g RHODA is from ATN likely from CTA , bacteremia and vancomycin toxicity Cr is improving slowly . Non oliguric. UOP is 600 cc Will start lasix 40 mg IV daily for significant edema No need for ADMINISTRATIVE RECEPTIONIST Check RFP in am rest of management as per ID and primary service Call if any question. Will follow
[2021-02-15 11:51] LABS: Bedside Glucose 185 mg/dL (70-110)
--- NOTE | 2021-02-15 13:28 | PCM.PN.HOSP ---
Documented by User: Genevieve Odonnell NP-C 02/15/21 13:38 Subjective Subjective Patient seen and examined. Patient states she is feeling better. Patient requesting nasal saline for congestion due to oxygen use. Otherwise patient has no complaints at this time. Objective Data Objective Data Vital Signs: Vital Signs Temp Pulse Resp BP Pulse Ox 97.5 F L 77 18 147/71 H 95 02/15/21 09:00 02/15/21 09:00 02/15/21 09:00 02/15/21 09:00 02/15/21 09:00 Oxygen Flow Rate (L/min) 2 Oxygen Delivery Method Nasal Cannula Weight: 319 lb 7.197 oz Body Mass Index (BMI) 58.4 Intake & Output: Intake and Output for Last 24 Hours 02/13/21 02/14/21 02/15/21 23:59 23:59 23:59 Intake Total 1440 / 1500 60 / 60 550 / 550 Output Total 950 / 1400 860 / 1110 975 / 975 Balance 490 / 100 -800 / -1050 -425 / -425 Lab / Micro Data Result Diagrams: 02/15/21 05:48 02/15/21 05:48 Labs: Laboratory Results - last 24 hr 02/14/21 16:37: POC Glucose 213 H 02/14/21 21:31: POC Glucose 179 H 02/15/21 05:48: WBC 12.1 H, RBC 3.05 L, Hgb 8.7 L, Hct 27.3 L, MCV 89.5, MCH 28.5, MCHC 31.9 L, RDW Std Deviation 61.2 H, RDW Coeff of Sherine 20.7 H, Plt Count 542 H, MPV 11.8, Immature Gran % (Auto) 2.500 H, Neut % (Auto) 72.2 H, Lymph % (Auto) 11.8 L, [place] % (Auto) 8.3, Eos % (Auto) 4.6, Baso % (Auto) 0.6, Absolute Neuts (auto) 8.8 H, Absolute Lymphs (auto) 1.43, Nucleated RBC % 23.1 H, Diff Path Review September02/15/21 05:48: Sodium 136, Potassium 5.1, Chloride 103, Carbon Dioxide 23.0, Anion Gap 10, BUN 73 H, Creatinine 2.26 H, Estim Creat Clear Calc 21.72, Est GFR (MDRD) Af Amer 29 L, Est GFR (MDRD) Non-Af 24 L, BUN/Creatinine Ratio 32.3 H, Glucose 178 H, Calcium 8.8 02/15/21 06:48: POC Glucose 195 H 02/15/21 11:41: POC Glucose 185 H Micro: Microbiology 02/10/21 08:36 Blood Culture (Wb) - Right Hand Blood Culture - Final No growth in 5 days. 02/09/21 15:20 Blood Culture (Wb) - Right Hand Blood Culture - Final No growth in 5 days. 02/08/21 10:15 Blood Culture (Wb) - Right Hand Blood Culture - Final No growth in 5 days. 02/07/21 14:00 Blood Culture (Wb) - Right Hand Blood Culture - Final Meth. resistant Staph. aureus 02/07/21 02:00 Interface Orders SARS-CoV-2 Antigen (Rapid) - Final Rhythm Strip Rhythm Strip: Sinus Rhythm Rate: 83 Ectopy: None Physical Exam Const alert, oriented x3 and no apparent distress HEENT head/scalp atraumatic Head and Scalp: normocephalic Eyes conjunctivae normal and no scleral icterus Neck full ROM and no JVD General: trachea midline Resp normal respiratory effort Effort and Inspection: symmetric chest movement Auscultation: diminished lung sounds Cardio regular rate, regular rhythm, S1 normal heart sound and S2 normal heart sound Peripheral Pulses: pulses 2+ throughout GI normal to inspection, nondistended, normoactive bowel sounds, soft to palpation and non-tender Inspection: central obesity Extremity normal to inspection, full ROM and no clubbing, cyanosis or edema Peripheral Pulses: Yes pulses 2+ throughout Skin no rashes or lesions noted, no wounds and skin turgor normal Neuro oriented x3, moves all extremities, no focal motor deficits and no sensory deficits noted Sensorium / Orientation: awake and alert Speech: speech normal Psych affect normal Assessment & Plan Assessment/Plan (1) Staphylococcus aureus bacteremia: (2) RHODA (acute kidney injury): PLAN: 1. Staph aureus bacteremia -MRSA bacteremia -ID following -On IV daptomycin -TRESSA negative for vegetation -Blood cultures 10 7 through 10 9 no growth -CT positive for interstitial edema and small bilateral pleural effusion 2. Acute kidney injury -Carlos placed due to retention -Nephrology following -Lasix discontinued -BMP daily 3. Urinary retention -Maintain Carlos catheter 4. Acute on chronic heart failure with preserved ejection fraction -Echo demonstrates EF 55% -Lasix discontinued to increase in creatinine -Strict intake and output -Daily weights 5. Normocytic anemia -Transfuse for hemoglobin less than 7 -Continue PPI -Iron studies consistent with iron deficiency, IV iron x3 doses then transition to p.o. 6. Diabetes mellitus type 2 -Continue Lantus 20 units daily and high-dose sliding scale insulin DVT prophylaxis-subcu Lovenox Discharge planning-pending pre-CERT for SNF This patient was seen by MOISES Allen under the supervision of Dr. Duong. Documented by User: Dr. Robert Duong MD 02/15/21 14:32 Objective Data Lab / Micro Data Result Diagrams: 02/15/21 05:48 02/15/21 05:48 Charges/Coding Addendum Addendum: Dr. Duong: I personally reviewed the chart and examined the patient, and agree with the above findings. 55-year-old female presented from a long term with urinary retention and was found to have staph santiago bacteremia. She was initially started on Vanco and Zosyn and infectious disease was consulted and transitioned her to daptomycin secondary to worsening kidney function. There was concern for endocarditis, initial TTE was negative for any vegetations, CTA as well as a TRESSA were also negative for vegetations. She was complaining of body aches which according to infectious disease can be a side effect of the daptomycin so CPK was ordered and was normal. We will continue to monitor. 02/13/2021: Continues to have some joint achiness today but otherwise remains unchanged, this is consistent with her rheumatoid arthritis and fibromyalgia especially in the setting of an acute illness. Appreciate both infectious disease as well as nephrology's assistance. We will continue to monitor and plan for disposition discharged to the senior living facility. She would like to change her when she is at therefore we are awaiting pre-CERT at this time. 02/14/2021: Myalgias are improving, as his renal function. We will continue with daptomycin, appreciate infectious disease and nephrology's input. Still awaiting pre-CERT for discharge to SNF. 02/15/21: Doing well, awaiting pre-CERT. Myalgias have essentially resolved and she is feeling much better. Per infectious disease, can likely transition to p.o. linezolid on discharge will have to decrease her Effexor dose by 50% on discharge. Visit Charges Inpatient E&M: 96882 Subs Hosp L2
[2021-02-15] MEDS: Sodium Chloride 0.65% 1 SPRAY SPRAY.BTL 2 SPRAY NASAL ×2 (14:02→21:00)
--- NOTE | 2021-02-15 14:25 | CASEMGMT ---
FRANCESCA called Jael Mckeon at [facility] and left her a voice mail inquiring if she has heard from insurance. Marlen Perez MIRROR MACHINE FEEDER THAI
--- NOTE | 2021-02-15 15:08 | CASEMGMT ---
FRANCESCA has not heard back from Jael Mckeon so FRANCESCA called [facility] and there was no answer. Marlen Perez DIRECTOR OF EXTENSION WORK BEAM BUILDER HELPER
[2021-02-15 16:41] LABS: Bedside Glucose 190 mg/dL (70-110)
[2021-02-15] MEDS: Atorvastatin Calcium 40 MG Tablet PO (21:02)
[2021-02-15 21:51] LABS: Bedside Glucose 178 mg/dL (70-110)
[2021-02-16] VITALS (8 sets, daily range): BP systolic 116–134; BP diastolic 61–69; PULSE 73–84; RESP 18; TEMP 36.4–36.6; O2SAT 93–98
[2021-02-16] MEDS: Nystatin Powder 15gm Bottle 1 APPLIC TOPICAL (05:43)
[2021-02-16 07:31] LABS: Hematocrit 27.6 % (37-47); Hemoglobin 8.7 g/dL (12.0-15.0); Mean Corp Hgb Conc 31.5 g/dL (32-36); Mean Corpuscular Hgb 28.2 pg (27.0-32.0); Mean Corpuscular Volume 89.6 fL (81-99); Mean Platelet Vol. 11.7 fl (6.2-12.0); POSITIVE COUNT YES; POSITIVE MORPHOLOGY YES; Platelet Count 530 K/mm3 (150-450); RBC Distribution Width CV 21.2 % (11.6-14.6); RBC Distribution Width SD 61.6 fl (35.1-43.9); Red Blood Count 3.08 M/mm3 (4.2-5.4)
[2021-02-16 07:42] LABS: Anion Gap 8 (5-15); BUN 71 mg/dL (7-18); BUN/Creat Ratio 36.8 RATIO (10-20); Calcium,Total 9.1 mg/dL (8.5-10.1); Chloride 105 mmol/L (98-107); Creatinine, Serum 1.93 mg/dL (0.55-1.02); EST Glomerular Filtration Rate 28 mL/min (>60); Est Glom Filt Rate - Afr Amer 34 mL/min (>60); Estimated Creatinine Clearance 25.44 ml/min; Glucose 164 mg/dL (74-106); Potassium 4.3 mmol/L (3.5-5.1); Sodium Level 136 mmol/L (136-145)
[2021-02-16 08:28] LABS: Differential Indicated MANUAL DIFF
[2021-02-16 08:51] LABS: Bedside Glucose 163 mg/dL (70-110)
--- NOTE | 2021-02-16 08:55 | CASEMGMT ---
SW called Jael Mckeon and asked about pre-cert. She said she does have authorization for patient to come today. SW let her know she will be coming today and SW will be in touch. Plan: d/c to [facility] under skilled level of care. Marlen Perez SUBSTATION TECHNICIAN THAI
[2021-02-16 09:01] LABS: Basophil 1 % (0-1); Eosinophil 5 % (0-5); Lymphocyte 12 % (19-41); Monocyte 8 % (0-10); Neutrophil-Segmented 73 % (47-70); Nucleated Red Bld Cells,Manual 23 % (0-5); Promyelocyte 1 % (0-0); Total Cells Counted 100 (MANUAL DIFF)
[2021-02-16 09:02] LABS: Anisocytosis 1+; Platelet Estimate MOD INC (ADEQ); Red Cell Morphology N CHROM NORMAL (NORM C&C)
[2021-02-16 09:03] LABS: Absolute Neutrophil Count 7.3 X10^3/uL (2.0-7.7)
[2021-02-16] MEDS: Insulin Lispro 100 UNIT/ML INSULN.PEN SC ×2 (09:05→13:00)
[2021-02-16] MEDS: Mupirocin Ointment 22gm Tube 1 APPLIC TOPICAL (09:05)
--- NOTE | 2021-02-16 09:05 | PN.RENAL_ITS ---
Subjective Subjective No acute events Objective Data Objective Data Vital Signs: Vital Signs Temp Pulse Resp BP Pulse Ox 97.8 F 80 18 134/61 H 97 02/16/21 05:39 02/16/21 07:04 02/16/21 05:39 02/16/21 05:39 02/16/21 07:00 Oxygen Flow Rate (L/min) 2 Oxygen Delivery Method Nasal Cannula Weight: 144.9 kg Body Mass Index (BMI) 58.4 Intake & Output: Intake and Output for Last 24 Hours 02/14/21 02/15/21 02/16/21 23:59 23:59 23:59 Intake Total 60 / 60 670 / 670 Output Total 860 / 1110 1300 / 1300 325 / 325 Balance -800 / -1050 -630 / -630 -325 / -325 Lab / Micro Data Result Diagrams: 02/16/21 05:40 02/16/21 05:40 Labs: Laboratory Results - last 24 hr 02/15/21 11:41: POC Glucose 185 H 02/15/21 16:34: POC Glucose 190 H 02/15/21 21:43: POC Glucose 178 H 02/16/21 05:40: WBC INFORMATION TECHNOLOGY INSTRUCTOR, Corrected WBC 10.0, RBC 3.08 L, Hgb 8.7 L, Hct 27.6 L, MCV 89.6, MCH 28.2, MCHC 31.5 L, RDW Std Deviation 61.6 H, RDW Coeff of Sherine 21.2 H, Plt Count 530 H, MPV 11.7, Immature Gran % (Auto) INFORMATION TECHNOLOGY INSTRUCTOR, Neut % (Auto) INFORMATION TECHNOLOGY INSTRUCTOR, Lymph % (Auto) INFORMATION TECHNOLOGY INSTRUCTOR, [place] % (Auto) INFORMATION TECHNOLOGY INSTRUCTOR, Eos % (Auto) INFORMATION TECHNOLOGY INSTRUCTOR, Baso % (Auto) INFORMATION TECHNOLOGY INSTRUCTOR, Absolute Neuts (auto) 7.3, Absolute Lymphs (auto) 1.20, Total Counted 100, Neutrophils % (Manual) 73 H, Lymphocytes % (Manual) 12 L, Monocytes % (Manual) 8, Eosinophils % (Manual) 5, Basophils % (Manual) 1, Promyelocytes % 1 H, Nucleated RBC % INFORMATION TECHNOLOGY INSTRUCTOR, Nucleated RBCs/100 WBC 23 H, Diff Path Review May foll, Platelet Estimate MOD INC, RBC Morphology N CHROM, Anisocytosis 1+ 02/16/21 05:40: Sodium 136, Potassium 4.3, Chloride 105, Carbon Dioxide 23.0, Anion Gap 8, BUN 71 H, Creatinine 1.93 H, Estim Creat Clear Calc 25.44, Est GFR (MDRD) Af Amer 34 L, Est GFR (MDRD) Non-Af 28 L, BUN/Creatinine Ratio 36.8 H, Glucose 164 H, Calcium 9.1 02/16/21 08:19: POC Glucose 163 H Micro: Microbiology 02/10/21 08:36 Blood Culture (Wb) - Right Hand Blood Culture - Final No growth in 5 days. 02/09/21 15:20 Blood Culture (Wb) - Right Hand Blood Culture - Final No growth in 5 days. 02/08/21 10:15 Blood Culture (Wb) - Right Hand Blood Culture - Final No growth in 5 days. 02/07/21 14:00 Blood Culture (Wb) - Right Hand Blood Culture - Final Meth. resistant Staph. aureus 02/07/21 02:00 Interface Orders SARS-CoV-2 Antigen (Rapid) - Final Rhythm Strip Rhythm Strip: Sinus Rhythm Rate: 83 Ectopy: None Physical Exam Narrative Alert awake oriented x 3 no obvious distress no pallor no JVD s1s2 no murmurs lungs clear abdomen soft no organomegaly +++ edema no cyanosis botello + Assessment & Plan Assessment/Plan (1) RHODA (acute kidney injury): PLAN: Acute renal failure. Baseline creatinine is around 1.1-1.2. Likely has some early CKD stage IIIa likely stef DNP. Pro/Cr 3300 mg/g RHODA is from ATN likely from CTA , bacteremia and vancomycin toxicity Cr is improving . Non oliguric. UOP is 1300 cc with lasix Will continue lasix 40 mg IV daily for significant edema No need for TOBACCO SWEEPER Check RFP in am rest of management as per ID and primary service Call if any question. Will follow
[2021-02-16] MEDS: Enoxaparin 30 MG/0.3 ML Syringe SC (09:07)
[2021-02-16] MEDS: Furosemide 40 MG/4 ML Vial IV (09:07)
[2021-02-16] MEDS: 0.9% Saline Lock 10 ML Syringe IV (09:07)
[2021-02-16] MEDS: Metoprolol Tartrate 25 MG Tablet 37.5 MG PO (09:08)
[2021-02-16] MEDS: NYSTATIN 500,000 UNIT/5 ML UDC 500000 UNIT PO (09:08)
[2021-02-16] MEDS: Pantoprazole Sodium 40 MG Tablet PO (09:08)
--- NOTE | 2021-02-16 09:21 | TREXTCAR_ITS ---
Diet 02/13/21 14:00 Diet: Carbohydrate Controlled Food consistency:: Soft & Bite Sized Liquid Consistency:: Regular/Thin Dietary Modifications:: Sodium Restricted Type of Dietary Supplement:: Glucerna Shake Diet Comments: 120ml glucerna shake TID w/ meals Routine Orders/Code Status Enema Type: Fleetz Enema Frequency: Daily PRN Suppository Type: Dulcolax 10mg Suppository Frequency: Daily PRN O2 Frequency: Continuous Keep PO Greater than or Equal to (%): 92 Routine Lab Work: BMP (2-3 days) Code Status: Full Code Wound(s) Face/ Neck: Wound Type: SCABS BUE: Wound Type: Blister abd: Wound Type: Abrasion RIGHT EAR: Wound Type: Abrasion Suggestions for Active Care Change Position every (hours): 2 Hours to sit in a chair: 2 Times a day to sit in chair: 3 Therapies Weight Bearing: Full weight bearing Physical Therapy: Eval and Treat Occupational Therapy: Eval and Treat Problem/Diagnosis (1) RHODA (acute kidney injury): Status: Acute Allergies/Procedures Done in Hospital Allergies codeine Allergy (Verified 02/07/21 01:25) Other Procedures: 2-D Echocardiogram, EKG and Transesophageal Echo Type of Care/Length of Stay Estimated LOS: More Than 30 Days Type of Care Needed: Skilled Rehab Potential: Fair Prognosis: Fair Additional Orders/Day of Discharge Day of Discharge: 02/16/21 Dietary and Speech Recommendations Dietitian Recommendations/Changes: Will liberalize diet to Carbohydrate-Controlled/Sodium-Restricted--consistency as per COMMISSARY HELPER, currently Soft/Bite-sized w/ thin liquids. Will add 120ml glucerna shake TID w/ meals for tolerance. Follow Up Care Please Follow Up With: zuly When: 2 weeks Discharge Plan Admission Admit Date/Time: 02/07/21 03:31 Primary Reason for Your Visit: Bacteremia, Urinary Retention Attending Provider: Robert Duong Primary Care Provider: Aidan Roth Consulting Providers: Lan Boyce ; Aki Mosley ; Bhargav Higgins ; Renee Alva ; Goldie Walsh ; Elsa Drake ; Yordy Willett ; Deshawn Ricci ; Karlee Bishop Discharge Orders/Prescriptions Prescriptions: New ferrous sulfate [FeroSul] 325 mg (65 mg iron) Tablet 325 mg PO DAILY@1200 Qty: 0 RF: 0 Lantus Solostar U-100 Insulin 100 unit/mL (3 mL) Insulin Pen 20 units subcut DAILY Qty: 0 RF: 0 nystatin 100,000 unit/mL Suspension 500,000 unit PO 4X/DAY Qty: 0 RF: 0 venlafaxine 100 mg Tablet 100 mg PO BID Qty: 0 RF: 0 mupirocin 2 % Ointment 1 applic topical BID Qty: 0 RF: 0 nystatin [Nyamyc] 100,000 unit/gram Powder 1 applic topical TID Qty: 0 RF: 0 oxycodone 5 mg Tablet 5 mg PO Q4H PRN PRN (Reason: Pain Score 4-10) 3 Days Qty: 18 RF: 0 insulin lispro [Humalog KwikPen Insulin] 100 unit/mL Insulin Pen See Protocol unit subcut TIDAC Qty: 0 RF: 0 linezolid 600 mg tablet 600 mg PO BID Qty: 20 RF: 0 Continued losartan 50 mg Tablet 50 mg PO DAILY RF: 0 atorvastatin 40 mg Tablet 40 mg PO QHS RF: 0 methotrexate sodium 2.5 mg Tablet 20 mg PO QWEEK RF: 0 furosemide [Lasix] 20 mg Tablet 40 mg PO DAILY RF: 0 metoprolol tartrate 37.5 mg Tablet 37.5 mg PO BID RF: 0 hydroxyzine HCl 50 mg Tablet 50 mg PO TID RF: 0 ibuprofen 400 mg Tablet 400 mg PO Q8H PRN (Reason: Pain) RF: 0 folic acid 1 mg Tablet 1 mg PO DAILY RF: 0 albuterol sulfate [ProAir HFA] 90 mcg/actuation Hfa Aerosol Inhaler 2 puff INHALATION Q6H PRN (Reason: Shortness Of Breath Or Wheezing) RF: 0 omeprazole 20 mg Capsule,Delayed Release(Dr/Ec) 20 mg PO DAILY RF: 0 [id number] 200-5-0.8-400 mg Capsule 1 cap PO DAILY RF: 0 Discontinued venlafaxine 25 mg Tablet 75 mg PO DAILY RF: 0 insulin lispro [Humalog KwikPen Insulin] 100 unit/mL insulin pen See Protocol sliding scale dose SUBCUT TIDCM RF: 0 Lantus Solostar U-100 Insulin 100 unit/mL (3 mL) Insulin Pen 40 unit SUBCUT DAILY RF: 0 Lantus Solostar U-100 Insulin 100 unit/mL (3 mL) Insulin Pen 30 unit SUBCUT QHS RF: 0 hydrocodone-acetaminophen [hydrocodone-acetaminophen] 1 TABLET tablet 1 tab PO Q4H PRN PRN (Reason: Pain) 2 Days Qty: 15 RF: 0 doxycycline hyclate [Doxy-Caps] 100 mg Capsule 100 mg PO BID RF: 0 venlafaxine [Effexor XR] 150 mg Capsule,Extended Release 24hr 150 mg PO DAILY RF: 0 nystatin 50 million unit Powder 1 unit TID RF: 0 Referrals / Follow Up: Aidan Roth MD [Primary Care Provider] - Disposition Disposition (needs filled in before D/C Order can be placed): Nursing Home Facility
[2021-02-16 09:49] LABS: Pathologist Review Reviewed
--- NOTE | 2021-02-16 10:02 | DS.PCM_ITS ---
Documented by User: MOISES Allen 02/16/21 10:11 Providers Date of Admission: 02/07/21 Primary Care Physician: Dr. Aidan Roth MD Consultations 02/07/21 06:26 Consult: Infectious Disease Routine Consulting Provider: Lan Boyce Reason for Consult: S. Aureus Bacteremia EMERGENT Consult: No Notified: Yes Date Notified: 02/07/21 Time Notified: 09:30 Method of Notification: Answering Service 02/10/21 09:26 Consult: Nephrology Routine Consulting Provider: [facility] Reason for Consult: RHODA, recent temp dialysis EMERGENT Consult: No Notified: Yes Date Notified: 02/10/21 Time Notified: 09:48 Method of Notification: Answering Service Reason For Visit: STAPH AUREUS BACTERMIA Diagnosis Discharge Diagnosis (1) RHODA (acute kidney injury): Status: Acute Code(s): N17.9 - Acute kidney failure, unspecified Medications at Discharge Home Medications atorvastatin 40 mg PO QHS 01/23/21 furosemide [Lasix] 40 mg PO DAILY 01/23/21 losartan 50 mg PO DAILY 01/23/21 methotrexate sodium 20 mg PO QWEEK 01/23/21 metoprolol tartrate 37.5 mg PO BID 01/23/21 albuterol sulfate [ProAir HFA] 2 puff INHALATION Q6H PRN 02/07/21 folic acid 1 mg PO DAILY 02/07/21 hydroxyzine HCl 50 mg PO TID 02/07/21 ibuprofen 400 mg PO Q8H PRN 02/07/21 omeprazole 20 mg PO DAILY 02/07/21 [id number] 1 cap PO DAILY 02/07/21 ferrous sulfate [FeroSul] 325 mg PO DAILY@1200 #0 tab 02/16/21 insulin glargine [Lantus Solostar U-100 Insulin] 20 units SUBCUT DAILY #0 ml 02/16/21 insulin lispro [Humalog KwikPen Insulin] See Protocol SUBCUT TIDAC #0 ml 02/16/21 linezolid 600 mg PO BID #20 tab 02/16/21 mupirocin 1 applic TOPICAL BID #0 g 02/16/21 nystatin 500,000 unit PO 4X/DAY #0 ml 02/16/21 nystatin [Nyamyc] 1 applic TOPICAL TID #0 g 02/16/21 oxycodone 5 mg PO Q4H PRN PRN 3 Days #18 tab 02/16/21 venlafaxine 100 mg PO BID #0 tab 02/16/21 Hospital Course Operations None Procedures 2-D Echocardiogram and Transesophageal Echo Summary of Care Provided Minutes Spent on Discharge: 35 Hospital Course: Patient is a 55-year-old female who was admitted on 02/07/2021 with acute kidney injury and urinary retention. During hospital course patient underwent an echocardiogram and a TRESSA which demonstrated an EF of 55% and no vegetation. Patient was noted to have MRSA bacteremia and has underwent IV antibiotics including vancomycin and daptomycin. Patient will be discharged on linezolid. Patient will be discharged to [facility] with Carlos due to urinary retention. Physical Exam Const alert, oriented x3 and no apparent distress General Appearance: cooperative HEENT normocephalic and head/scalp atraumatic Eyes conjunctivae normal and no scleral icterus Neck supple General: trachea midline Resp normal respiratory effort and normal air movement Auscultation: diminished lung sounds Cardio regular rate, regular rhythm, S1 normal heart sound, S2 normal heart sound and peripheral pulses 2+ throughout GI normal to inspection, nondistended, normoactive bowel sounds, soft to palpation and non-tender Extremity normal capillary refill and no clubbing, cyanosis or edema General Extremity: no tenderness to palpation of joints or extremities Skin skin turgor normal Skin Narrative: Multiple scabbed areas noted to face and arms General Skin Exam: no breakdown Rashes: no rashes Neuro no focal motor deficits and no sensory deficits noted Speech: speech normal Motor Exam: general weakness Psych affect normal Appearance: appropriate Mood & Affect: anxious Weight / BMI Weight Weight: 319 lb 7.197 oz Body Mass Index (BMI) 58.4 ABG / Lab / Microbiology Data Result Diagrams: 02/16/21 05:40 02/16/21 05:40 Laboratory: Laboratory Results - last 24 hr 02/15/21 05:48: Diff Path Review Reviewed 02/15/21 11:41: POC Glucose 185 H 02/15/21 16:34: POC Glucose 190 H 02/15/21 21:43: POC Glucose 178 H 02/16/21 05:40: WBC FRONT OFFICE JAVA DEVELOPER, Corrected WBC 10.0, RBC 3.08 L, Hgb 8.7 L, Hct 27.6 L, MCV 89.6, MCH 28.2, MCHC 31.5 L, RDW Std Deviation 61.6 H, RDW Coeff of Sherine 21.2 H, Plt Count 530 H, MPV 11.7, Immature Gran % (Auto) FRONT OFFICE JAVA DEVELOPER, Neut % (Auto) FRONT OFFICE JAVA DEVELOPER, Lymph % (Auto) FRONT OFFICE JAVA DEVELOPER, Cloud % (Auto) FRONT OFFICE JAVA DEVELOPER, Eos % (Auto) FRONT OFFICE JAVA DEVELOPER, Baso % (Auto) FRONT OFFICE JAVA DEVELOPER, Absolute Neuts (auto) 7.3, Absolute Lymphs (auto) 1.20, Total Counted 100, Neutrophils % (Manual) 73 H, Lymphocytes % (Manual) 12 L, Monocytes % (Manual) 8, Eosinophils % (Manual) 5, Basophils % (Manual) 1, Promyelocytes % 1 H, Nucleated RBC % FRONT OFFICE JAVA DEVELOPER, Nucleated RBCs/100 WBC 23 H, Diff Path Review September, Platelet Estimate MOD INC, RBC Morphology N CHROM, Anisocytosis 1+ 02/16/21 05:40: Sodium 136, Potassium 4.3, Chloride 105, Carbon Dioxide 23.0, Anion Gap 8, BUN 71 H, Creatinine 1.93 H, Estim Creat Clear Calc 25.44, Est GFR (MDRD) Af Amer 34 L, Est GFR (MDRD) Non-Af 28 L, BUN/Creatinine Ratio 36.8 H, Glucose 164 H, Calcium 9.1 02/16/21 08:19: POC Glucose 163 H Microbiology: Microbiology 02/10/21 08:36 Blood Culture (Wb) - Right Hand Blood Culture - Final No growth in 5 days. 02/09/21 15:20 Blood Culture (Wb) - Right Hand Blood Culture - Final No growth in 5 days. 02/08/21 10:15 Blood Culture (Wb) - Right Hand Blood Culture - Final No growth in 5 days. 02/07/21 14:00 Blood Culture (Wb) - Right Hand Blood Culture - Final Meth. resistant Staph. aureus 02/07/21 02:00 Interface Orders SARS-CoV-2 Antigen (Rapid) - Final D/C Instructions Discharge Diet: Low fat / Low cholesterol and 1800 Calorie Control Diet Discharge Activity: Return to Normal Activity Weight Bearing Status: Full weight bearing Call your doctor if you observe: Fever of 101 or Higher, Inability to have a bowel movement, Shortness of breath (increased) and Uncontrolled pain Catheter: Carlos to large bag Please Follow Up With: zuly Meaningful Use Info Meaningful Use Diagnoses (Choose all that apply): None applicable Discharge Plan Admission Admit Date/Time: 02/07/21 03:31 Primary Reason for Your Visit: Bacteremia, Urinary Retention Attending Provider: Robert Duong Primary Care Provider: Aidan Roth Consulting Providers: Lan Boyce ; Aki Mosley ; Bhargav Higgins ; Renee Alva ; Goldie Walsh ; Elsa Drake ; Yordy Willett ; Deshawn Ricci ; Karlee Bishop Instructions Additional Instructions / Restrictions: Patient Problems: Altered Health Status related to Hospitalization Patient Goals: *Optimal Level of Health *Keep Appointments *Medication Compliance *Remain Safe Discharge Orders/Prescriptions Prescriptions: New ferrous sulfate [FeroSul] 325 mg (65 mg iron) Tablet 325 mg PO DAILY@1200 Qty: 0 RF: 0 Lantus Solostar U-100 Insulin 100 unit/mL (3 mL) Insulin Pen 20 units subcut DAILY Qty: 0 RF: 0 nystatin 100,000 unit/mL Suspension 500,000 unit PO 4X/DAY Qty: 0 RF: 0 venlafaxine 100 mg Tablet 100 mg PO BID Qty: 0 RF: 0 mupirocin 2 % Ointment 1 applic topical BID Qty: 0 RF: 0 nystatin [Nyamyc] 100,000 unit/gram Powder 1 applic topical TID Qty: 0 RF: 0 oxycodone 5 mg Tablet 5 mg PO Q4H PRN PRN (Reason: Pain Score 4-10) 3 Days Qty: 18 RF: 0 insulin lispro [Humalog KwikPen Insulin] 100 unit/mL Insulin Pen See Protocol unit subcut TIDAC Qty: 0 RF: 0 linezolid 600 mg tablet 600 mg PO BID Qty: 20 RF: 0 Continued losartan 50 mg Tablet 50 mg PO DAILY RF: 0 atorvastatin 40 mg Tablet 40 mg PO QHS RF: 0 methotrexate sodium 2.5 mg Tablet 20 mg PO QWEEK RF: 0 furosemide [Lasix] 20 mg Tablet 40 mg PO DAILY RF: 0 metoprolol tartrate 37.5 mg Tablet 37.5 mg PO BID RF: 0 hydroxyzine HCl 50 mg Tablet 50 mg PO TID RF: 0 ibuprofen 400 mg Tablet 400 mg PO Q8H PRN (Reason: Pain) RF: 0 folic acid 1 mg Tablet 1 mg PO DAILY RF: 0 albuterol sulfate [ProAir HFA] 90 mcg/actuation Hfa Aerosol Inhaler 2 puff INHALATION Q6H PRN (Reason: Shortness Of Breath Or Wheezing) RF: 0 omeprazole 20 mg Capsule,Delayed Release(Dr/Ec) 20 mg PO DAILY RF: 0 [id number] 200-5-0.8-400 mg Capsule 1 cap PO DAILY RF: 0 Discontinued venlafaxine 25 mg Tablet 75 mg PO DAILY RF: 0 insulin lispro [Humalog KwikPen Insulin] 100 unit/mL insulin pen See Protocol sliding scale dose SUBCUT TIDCM RF: 0 Lantus Solostar U-100 Insulin 100 unit/mL (3 mL) Insulin Pen 40 unit SUBCUT DAILY RF: 0 Lantus Solostar U-100 Insulin 100 unit/mL (3 mL) Insulin Pen 30 unit SUBCUT QHS RF: 0 hydrocodone-acetaminophen [hydrocodone-acetaminophen] 1 TABLET tablet 1 tab PO Q4H PRN PRN (Reason: Pain) 2 Days Qty: 15 RF: 0 doxycycline hyclate [Doxy-Caps] 100 mg Capsule 100 mg PO BID RF: 0 venlafaxine [Effexor XR] 150 mg Capsule,Extended Release 24hr 150 mg PO DAILY RF: 0 nystatin 50 million unit Powder 1 unit TID RF: 0 Referrals / Follow Up: Aidan Roth MD [Primary Care Provider] - Disposition Disposition (needs filled in before D/C Order can be placed): [facility] Facility Documented by User: Dr. Robert Duong MD 02/16/21 11:14 Providers Date of Admission: 02/07/21 Reason For Visit: STAPH AUREUS BACTERMIA Medications at Discharge Home Medications atorvastatin 40 mg PO QHS 01/23/21 furosemide [Lasix] 40 mg PO DAILY 01/23/21 losartan 50 mg PO DAILY 01/23/21 methotrexate sodium 20 mg PO QWEEK 01/23/21 metoprolol tartrate 37.5 mg PO BID 01/23/21 albuterol sulfate [ProAir HFA] 2 puff INHALATION Q6H PRN 02/07/21 folic acid 1 mg PO DAILY 02/07/21 hydroxyzine HCl 50 mg PO TID 02/07/21 ibuprofen 400 mg PO Q8H PRN 02/07/21 omeprazole 20 mg PO DAILY 02/07/21 [id number] 1 cap PO DAILY 02/07/21 ferrous sulfate [FeroSul] 325 mg PO DAILY@1200 #0 tab 02/16/21 insulin glargine [Lantus Solostar U-100 Insulin] 20 units SUBCUT DAILY #0 ml 02/16/21 insulin lispro [Humalog KwikPen Insulin] See Protocol SUBCUT TIDAC #0 ml 02/16/21 linezolid 600 mg PO BID #20 tab 02/16/21 mupirocin 1 applic TOPICAL BID #0 g 02/16/21 nystatin 500,000 unit PO 4X/DAY #0 ml 02/16/21 nystatin [Nyamyc] 1 applic TOPICAL TID #0 g 02/16/21 oxycodone 5 mg PO Q4H PRN PRN 3 Days #18 tab 02/16/21 venlafaxine 100 mg PO BID #0 tab 02/16/21 ABG / Lab / Microbiology Data Result Diagrams: 02/16/21 05:40 02/16/21 05:40 Discharge Plan Admission Admit Date/Time: 02/07/21 03:31 Primary Reason for Your Visit: Bacteremia, Urinary Retention Attending Provider: Robert Duong Primary Care Provider: Aidan Roth Consulting Providers: Lan Boyce ; Aki Mosley ; Bhargav Higgins ; Renee Alva ; Goldie Walsh ; Elsa Drake ; Yordy Willett ; Deshawn Ricci ; Karlee Bishop Instructions Additional Instructions / Restrictions: Patient Problems: Altered Health Status related to Hospitalization Patient Goals: *Optimal Level of Health *Keep Appointments *Medication Compliance *Remain Safe Discharge Orders/Prescriptions Prescriptions: New ferrous sulfate [FeroSul] 325 mg (65 mg iron) Tablet 325 mg PO DAILY@1200 Qty: 0 RF: 0 Lantus Solostar U-100 Insulin 100 unit/mL (3 mL) Insulin Pen 20 units subcut DAILY Qty: 0 RF: 0 nystatin 100,000 unit/mL Suspension 500,000 unit PO 4X/DAY Qty: 0 RF: 0 venlafaxine 100 mg Tablet 100 mg PO BID Qty: 0 RF: 0 mupirocin 2 % Ointment 1 applic topical BID Qty: 0 RF: 0 nystatin [Nyamyc] 100,000 unit/gram Powder 1 applic topical TID Qty: 0 RF: 0 oxycodone 5 mg Tablet 5 mg PO Q4H PRN PRN (Reason: Pain Score 4-10) 3 Days Qty: 18 RF: 0 insulin lispro [Humalog KwikPen Insulin] 100 unit/mL Insulin Pen See Protocol unit subcut TIDAC Qty: 0 RF: 0 linezolid 600 mg tablet 600 mg PO BID Qty: 20 RF: 0 Continued losartan 50 mg Tablet 50 mg PO DAILY RF: 0 atorvastatin 40 mg Tablet 40 mg PO QHS RF: 0 methotrexate sodium 2.5 mg Tablet 20 mg PO QWEEK RF: 0 furosemide [Lasix] 20 mg Tablet 40 mg PO DAILY RF: 0 metoprolol tartrate 37.5 mg Tablet 37.5 mg PO BID RF: 0 hydroxyzine HCl 50 mg Tablet 50 mg PO TID RF: 0 ibuprofen 400 mg Tablet 400 mg PO Q8H PRN (Reason: Pain) RF: 0 folic acid 1 mg Tablet 1 mg PO DAILY RF: 0 albuterol sulfate [ProAir HFA] 90 mcg/actuation Hfa Aerosol Inhaler 2 puff INHALATION Q6H PRN (Reason: Shortness Of Breath Or Wheezing) RF: 0 omeprazole 20 mg Capsule,Delayed Release(Dr/Ec) 20 mg PO DAILY RF: 0 [id number] 200-5-0.8-400 mg Capsule 1 cap PO DAILY RF: 0 Discontinued venlafaxine 25 mg Tablet 75 mg PO DAILY RF: 0 insulin lispro [Humalog KwikPen Insulin] 100 unit/mL insulin pen See Protocol sliding scale dose SUBCUT TIDCM RF: 0 Lantus Solostar U-100 Insulin 100 unit/mL (3 mL) Insulin Pen 40 unit SUBCUT DAILY RF: 0 Lantus Solostar U-100 Insulin 100 unit/mL (3 mL) Insulin Pen 30 unit SUBCUT QHS RF: 0 hydrocodone-acetaminophen [hydrocodone-acetaminophen] 1 TABLET tablet 1 tab PO Q4H PRN PRN (Reason: Pain) 2 Days Qty: 15 RF: 0 doxycycline hyclate [Doxy-Caps] 100 mg Capsule 100 mg PO BID RF: 0 venlafaxine [Effexor XR] 150 mg Capsule,Extended Release 24hr 150 mg PO DAILY RF: 0 nystatin 50 million unit Powder 1 unit TID RF: 0 Referrals / Follow Up: Aidan Roth MD [Primary Care Provider] - Disposition Disposition (needs filled in before D/C Order can be placed): [facility] Facility
--- NOTE | 2021-02-16 12:11 | CASEMGMT ---
Patient is stating she does not know where she is going at d/c. SW met with patient and reminded her of her discussion with Brayan and FRANCESCA. FRANCESCA told her that per Brayan she told them to send a referral to [facility] which they did and [facility] accepted her and started the process with insurance. FRANCESCA told her this all happened before she even came to [facility]. FRANCESCA told her that SW spoke with her about this earlier this stay. She said she was confused and doesn't know how this works. SW asked what she was specifically referring to. She asked how long would she be there and would she like the place. SW told her how long she is there depends on how she does with therapy. SW told her she needs to get up and move with therapy so she can get stronger to go home. FRANCESCA told her as far as whether she will like the place that is up to her and what she makes of it. Marlen Perez CONTROL VALVE TECHNICIAN THAI
--- NOTE | 2021-02-16 12:25 | CASEMGMT ---
FRANCESCA arranged for patient to get picked up at 130 via cot. SW faxed orders, negative COVID, and shrimp picker time to [facility]. FRANCESCA notified RN and Jael Mckeon at [facility]. Plan: d/c to [facility] under skilled level of care. She was at [place] before this hospital stay and told them she wanted to go to [facility]. [facility] will transport patient via cot. Marlen ANDRE
[2021-02-16] MEDS: HYDROcodone Bitartrate/Apap 5/325 Tablet PO (12:58)
[2021-02-16] MEDS: Ferrous Sulfate 325 MG Tablet PO (13:00)
--- NOTE | 2021-02-16 13:11 | CASEMGMT ---
FRANCESCA notified patient of her hot die picker time. FRANCESCA asked if she would like SW to call anyone for her and she said she will call her daughter. Marlen ANDRE
[2021-02-16 13:19] LABS: Bedside Glucose 243 mg/dL (70-110)
[2021-02-16 13:47] LABS: Scan Smear per Review Criteria MANUAL DIFF
--- NOTE | 2021-02-16 13:47 | NURSING ---
called report to Vikas, report given to Karly
[2021-02-19 09:22] LABS: Pathologist Review Reviewed
== END 2021-02-16 13:45 | disposition skilled nursing facility (03) | DRG 871 ==
LOC: ED 03:11 → PCU 03:44
PROVIDERS: Internal Medicine; Internal Medicine Infectious Disease; Internal Medicine Nephrology; Nurse Practitioner Family; Admitting Provider Internal Medicine; Emergency Provider Emergency Medicine; PCP Family Medicine; Visit Provider Family Medicine
DX: R78.81 Bacteremia (principal); I50.33 Acute on chronic diastolic (congestive) heart failure; N17.9 Acute kidney failure, unspecified; I13.0 Hypertensive heart and chronic kidney disease with heart failure and stage 1 through stage 4 chronic kidney disease, or unspecified chronic kidney disease; Z68.43 Body mass index [BMI] 50.0-59.9, adult; A49.02 Methicillin resistant Staphylococcus aureus infection, unspecified site; E11.22 Type 2 diabetes mellitus with diabetic chronic kidney disease; N18.31 Chronic kidney disease, stage 3a; D63.8 Anemia in other chronic diseases classified elsewhere; E86.0 Dehydration; R33.9 Retention of urine, unspecified; L30.4 Erythema intertrigo; B37.2 Candidiasis of skin and nail; E11.649 Type 2 diabetes mellitus with hypoglycemia without coma; E78.5 Hyperlipidemia, unspecified; Z20.822 Contact with and (suspected) exposure to COVID-19; M06.9 Rheumatoid arthritis, unspecified; M79.7 Fibromyalgia; G89.29 Other chronic pain; R13.10 Dysphagia, unspecified; L30.9 Dermatitis, unspecified; K21.9 Gastro-esophageal reflux disease without esophagitis; F32.A Depression, unspecified; F41.9 Anxiety disorder, unspecified; E66.01 Morbid (severe) obesity due to excess calories; Z79.4 Long term (current) use of insulin; Z79.899 Other long term (current) drug therapy; I25.2 Old myocardial infarction; Z95.5 Presence of coronary angioplasty implant and graft
CPT/HCPCS: 36415; 51702; 71045; 71275; 80048; 80053; 80202; 81001; 82550; 82570; 82607; 82746; 82962; 83540; 83550; 83605; 83735; 83880; 84100; 84156; 84300; 84443; 84484; 85025; 85610; 86160; 87040; 87149; 87186; 87426; 92526; 92610; 93005; 93306; 93312; 93320; 93325; 94667; 94668; 97110; 97150; 97163; 97166; 97530; 97535; 97802; 99251; 99285; J0878; J7030; J7040; J7050; Q9957; Q9967; A4216; C8929; G0463; J1940; J2916; J3490